=== PATIENT | male | born 1940 | race Caucasian/White ===

== ENCOUNTER → 2017-07-20 09:50 | Outpatient (CLI) | payer MEDICARE, SELFPAY ==
--- NOTE | 2017-07-20 09:50 | DT_ITS ---
This patient was seen during an EMR downtime July 20, 2017 - July 27, 2017. This patient may have a combination of paper and electronic documentation or all paper documentation. All documentation is viewable within the e-chart portion of [facility] for each patient visit.
[2017-07-26 02:58] LABS: Hemoglobin A1c 6.5 % (4.2-6.3)
[2017-07-26 02:59] LABS: BUN 17 mg/dL (7-18); BUN/Creat Ratio 14.7 RATIO (10-20); Creatinine, Serum 1.16 mg/dL (0.70-1.30); EST Glomerular Filtration Rate 65 mL/min (>60); Est Glom Filt Rate - Afr Amer 79 mL/min (>60); Glucose 125 mg/dL (74-106); Microalbumin,Random Urine 5.7 mg/L (NO RANGE EST.); Protein, Total 7.2 g/dL (6.4-8.2)
[2017-07-26 03:00] LABS: ALB/GLOB Ratio 1.2 RATIO (0.9-2.4); AST(SGOT) 19 U/L (15-37); Alanine Aminotransfer ALT/SGPT 25 U/L (16-61); Albumin, Serum 3.9 g/dL (3.2-5.0); Alkaline Phosphatase 43 U/L (45-117); Anion Gap 8 (5-15); Calcium,Total 8.9 mg/dL (8.5-10.1); Chloride 105 mmol/L (98-107); Cholesterol 221 mg/dL (200); Globulin 3.3 g/dL (2.2-4.2); High Density Lipoprotein 42 mg/dL; Potassium 4.1 mmol/L (3.5-5.1); Sodium Level 142 mmol/L (136-145); Triglycerides 138 mg/dL; Very Low Density Lipoprotein 28 mg/dL (5-40)
[2017-07-26 03:01] LABS: PSA,Total - Annual Screen 0.63 ng/mL (0.00-4.00)
[2017-07-26 04:11] LABS: Hematocrit 47.3 % (40-54); Hemoglobin 15.8 g/dl (13.0-16.5); Mean Corp Hgb Conc 33.4 g/gl (32-36); Mean Corpuscular Hgb 28.8 pg (27.0-32.0); Mean Corpuscular Volume 86.3 fL (80-94); Red Blood Count 5.48 M/mm3 (4.6-6.2); White Blood Count 6.3 K/mm3 (4.4-11.0)
[2017-07-26 04:12] LABS: Absolute Neutrophil Count 4.1 X10^3/uL (2.0-7.7); Basophil# 0.04 X10^3/uL; Basophil% 0.6 % (0-1); Eosinophil# 0.11 X10^3/uL; Eosinophils% 1.8 % (0-5); Lymphocyte % 22.3 % (19-41); Mean Platelet Vol. 10.6 fl (6.2-12.0); Monocyte% 9.6 % (0-10); Neutrophil # 4.12 X10^3/uL (2.7-7.7); Neutrophil % 65.5 % (47-70); POSITIVE COUNT NO; POSITIVE DIFFERENTIAL NO; POSITIVE MORPHOLOGY NO; Platelet Count 207 K/mm3 (150-450); RBC Distribution Width CV 13.8 % (11.6-14.6); RBC Distribution Width SD 43.8 fl (35.1-43.9)
== END ==
PROVIDERS: Family Provider Family Medicine; PCP Family Medicine; Visit Provider Family Medicine
DX: E11.9 Type 2 diabetes mellitus without complications (principal); E78.5 Hyperlipidemia, unspecified; Z12.5 Encounter for screening for malignant neoplasm of prostate; Z51.81 Encounter for therapeutic drug level monitoring
CPT/HCPCS: 36415; 80053; 80061; 82043; 82570; 83036; 84153; 85025; G0103

== ENCOUNTER → 2018-02-22 10:11 | Outpatient (CLI) | payer MEDICARE, SELFPAY ==
[2018-02-22 12:18] LABS: Hemoglobin A1c 6.6 % (4.2-6.3)
[2018-02-22 12:29] LABS: Cholesterol 230 mg/dL (200); High Density Lipoprotein 49 mg/dL; Triglycerides 103 mg/dL; Very Low Density Lipoprotein 21 mg/dL (5-40)
== END ==
PROVIDERS: Family Provider Family Medicine; PCP Family Medicine; Visit Provider Family Medicine
DX: E11.9 Type 2 diabetes mellitus without complications (principal)
CPT/HCPCS: 36415; 80061; 83036

== ENCOUNTER → 2018-08-31 | Outpatient (CLI) | payer MEDICARE, SELFPAY ==
[2018-08-31 12:26] LABS: Absolute Lymphocyte Count 1.45 X10^3/uL (0.83-4.51); Absolute Neutrophil Count 3.1 X10^3/uL (2.0-7.7); Basophil# 0.05 X10^3/uL; Basophil% 0.9 % (0-1); Eosinophil# 0.18 X10^3/uL; Eosinophils% 3.4 % (0-5); Hematocrit 44.2 % (40-54); Hemoglobin 14.6 g/dL (13.0-16.5); Lymphocyte # 1.45 X10^3/ul (4.0); Lymphocyte % 27.3 % (19-41); Mean Corpuscular Hgb 28.6 pg (27.0-32.0); Mean Corpuscular Volume 86.5 fL (80-94); Monocyte# 0.51 X10^3/uL; Monocyte% 9.6 % (0-10); NRBC Flagged by Analyzer 0 % (0-5); Neutrophil # 3.11 X10^3/uL (2.7-7.7); Neutrophil % 58.6 % (47-70); Platelet Count 196 K/mm3 (150-450); RBC Distribution Width CV 13.1 % (11.6-14.6); RBC Distribution Width SD 41.2 fl (35.1-43.9); Red Blood Count 5.11 M/mm3 (4.6-6.2); White Blood Count 5.3 K/mm3 (4.4-11.0)
[2018-08-31 12:42] LABS: Hemoglobin A1c 6.7 % (4.2-6.3)
[2018-08-31 13:05] LABS: ALB/GLOB Ratio 1.1 RATIO (0.9-2.4); AST(SGOT) 18 U/L (15-37); Alanine Aminotransfer ALT/SGPT 21 U/L (16-61); Albumin, Serum 3.4 g/dL (3.2-5.0); Alkaline Phosphatase 43 U/L (45-117); Anion Gap 5 (5-15); BUN 21 mg/dL (7-18); BUN/Creat Ratio 19.4 RATIO (10-20); Calcium,Total 8.5 mg/dL (8.5-10.1); Chloride 107 mmol/L (98-107); Cholesterol 203 mg/dL (200); Creatinine, Serum 1.08 mg/dL (0.70-1.30); EST Glomerular Filtration Rate 70 mL/min (>60); Est Glom Filt Rate - Afr Amer 85 mL/min (>60); Globulin 3.1 g/dL (2.2-4.2); Glucose 115 mg/dL (74-106); High Density Lipoprotein 40 mg/dL; PSA,Total - Annual Screen 0.82 ng/mL (0.00-4.00); Protein, Total 6.5 g/dL (6.4-8.2); Sodium Level 139 mmol/L (136-145); Triglycerides 128 mg/dL; Very Low Density Lipoprotein 26 mg/dL (5-40)
== END | disposition home or self-care (01) ==
LOC: LAB.FUTURE 09:56
PROVIDERS: Family Provider Family Medicine; PCP Family Medicine; Visit Provider Family Medicine
DX: E11.9 Type 2 diabetes mellitus without complications (principal); E78.5 Hyperlipidemia, unspecified; Z12.5 Encounter for screening for malignant neoplasm of prostate; Z51.81 Encounter for therapeutic drug level monitoring
CPT/HCPCS: 36415; 80053; 80061; 83036; 84153; 85025; G0103

== ENCOUNTER → 2018-10-28 12:25 | Outpatient (CLI) | payer MEDICARE, SELFPAY ==
--- NOTE | 2018-10-28 12:30 | RAD_ITS ---
STUDY: X-RAY CHEST REASON FOR EXAM: Male, 78 years old. Persistent cough. TECHNIQUE: PA and lateral views of the chest. COMPARISON: September 10, 2014. FINDINGS: There is improved inspiratory effort when compared to prior study. There is mild chronic interstitial coarsening without acute infiltrate or mass. There is no demonstrated pleural abnormality. Normal size heart. Normal mediastinum and az. Normal visualized pulmonary arteries. Normal visualized aortic arch and descending thoracic aorta. There are diffuse degenerative changes of the visualized thoracic spine. There is degenerative osteoarthritis of the bilateral shoulders. There is no demonstrated abnormality of the visualized soft tissue structures of the upper abdomen. RAD/Chest PA and Lateral IMPRESSION: No acute cardiopulmonary disease. Electronically Signed: Jj Kelly DO at 23:13 EDT Tel [phone], Service support ,
== END ==
PROVIDERS: Family Provider Family Medicine; PCP Family Medicine; Referring Provider Family Medicine; Visit Provider Family Medicine
DX: R05 Cough (principal)
CPT/HCPCS: 71046

== ENCOUNTER → 2018-11-01 17:11 | Outpatient (CLI) | payer MEDICARE, SELFPAY ==
[2018-11-01 17:25] LABS: Absolute Lymphocyte Count 1.31 X10^3/uL (0.83-4.51); Absolute Neutrophil Count 5.5 X10^3/uL (2.0-7.7); Basophil# 0.06 X10^3/uL; Basophil% 0.7 % (0-1); Eosinophil# 0.16 X10^3/uL; Hematocrit 46.6 % (40-54); Hemoglobin 15.4 g/dL (13.0-16.5); Lymphocyte # 1.31 X10^3/ul (4.0); Lymphocyte % 16.3 % (19-41); Mean Corpuscular Hgb 29.1 pg (27.0-32.0); Mean Corpuscular Volume 87.9 fL (80-94); Mean Platelet Vol. 10.3 fl (6.2-12.0); Monocyte% 12.4 % (0-10); NRBC Flagged by Analyzer 0 % (0-5); Neutrophil % 68.2 % (47-70); Platelet Count 215 K/mm3 (150-450); RBC Distribution Width CV 13.4 % (11.6-14.6); RBC Distribution Width SD 43.3 fl (35.1-43.9); White Blood Count 8.1 K/mm3 (4.4-11.0)
[2018-11-01 17:50] LABS: ALB/GLOB Ratio 1.1 RATIO (0.9-2.4); AST(SGOT) 16 U/L (15-37); Alanine Aminotransfer ALT/SGPT 22 U/L (16-61); Albumin, Serum 3.7 g/dL (3.2-5.0); Alkaline Phosphatase 49 U/L (45-117); Anion Gap 6 (5-15); BUN 29 mg/dL (7-18); BUN/Creat Ratio 25.7 RATIO (10-20); CRP < 2.90 mg/L (0.0-3.0); Calcium,Total 9.2 mg/dL (8.5-10.1); Chloride 106 mmol/L (98-107); Creatinine, Serum 1.13 mg/dL (0.70-1.30); EST Glomerular Filtration Rate 67 mL/min (>60); Est Glom Filt Rate - Afr Amer 81 mL/min (>60); Globulin 3.5 g/dL (2.2-4.2); Glucose 119 mg/dL (74-106); Potassium 4.3 mmol/L (3.5-5.1); Protein, Total 7.2 g/dL (6.4-8.2); Sodium Level 141 mmol/L (136-145); Thyroid Stim Hormone (TSH) 1.64 uIU/mL (0.358-3.74)
== END ==
PROVIDERS: Family Provider Family Medicine; PCP Family Medicine; Referring Provider Family Medicine; Visit Provider Family Medicine
DX: R53.83 Other fatigue (principal); R05 Cough; R06.00 Dyspnea, unspecified
CPT/HCPCS: 36415; 80053; 84443; 85025; 86140

== ENCOUNTER → 2019-02-28 10:08 | Outpatient (CLI) | payer MEDICARE, SELFPAY ==
[2019-02-28 13:34] LABS: Cholesterol 210 mg/dL (200); High Density Lipoprotein 42 mg/dL; Triglycerides 107 mg/dL; Very Low Density Lipoprotein 21 mg/dL (5-40)
[2019-02-28 14:30] LABS: Hemoglobin A1c 6.5 % (4.2-6.3)
== END ==
LOC: LAB.FUTURE 10:08 → BFHLAB 03-01 15:42
PROVIDERS: Family Provider Family Medicine; PCP Family Medicine; Visit Provider Family Medicine
DX: E11.9 Type 2 diabetes mellitus without complications (principal); E78.5 Hyperlipidemia, unspecified
CPT/HCPCS: 36415; 80061; 83036

== ENCOUNTER → 2019-08-01 | Outpatient (CLI) | payer MEDICARE, SELFPAY | END | disposition home or self-care (01) | LOC: LABSPEC 13:59 | PROVIDERS: PCP Family Medicine; Referring Provider Family Medicine; Visit Provider Family Medicine | DX: Z03.818 Encounter for observation for suspected exposure to other biological agents ruled out (principal) | CPT/HCPCS: 87635; G2023; U0003 ==

== ENCOUNTER → 2019-08-26 10:58 | Outpatient (CLI) | payer MEDICARE, SELFPAY ==
[2019-08-26 13:01] LABS: Absolute Lymphocyte Count 1.54 X10^3/uL (0.83-4.51); Absolute Neutrophil Count 3.2 X10^3/uL (2.0-7.7); Basophil# 0.06 X10^3/uL; Basophil% 1.1 % (0-1); Eosinophil# 0.23 X10^3/uL; Hematocrit 46.4 % (40-54); Hemoglobin 15.4 g/dL (13.0-16.5); Lymphocyte # 1.54 X10^3/ul (4.0); Lymphocyte % 27.1 % (19-41); Mean Corp Hgb Conc 33.2 g/dL (32-36); Mean Corpuscular Hgb 29.4 pg (27.0-32.0); Mean Corpuscular Volume 88.7 fL (80-94); Mean Platelet Vol. 10.4 fl (6.2-12.0); Monocyte# 0.62 X10^3/uL; Monocyte% 10.9 % (0-10); NRBC Flagged by Analyzer 0 % (0-5); Neutrophil # 3.22 X10^3/uL (2.7-7.7); Neutrophil % 56.5 % (47-70); Platelet Count 193 K/mm3 (150-450); RBC Distribution Width CV 13.7 % (11.6-14.6); RBC Distribution Width SD 43.8 fl (35.1-43.9); Red Blood Count 5.23 M/mm3 (4.6-6.2); White Blood Count 5.7 K/mm3 (4.4-11.0)
[2019-08-26 13:07] LABS: ALB/GLOB Ratio 1.1 RATIO (0.9-2.4); AST(SGOT) 19 U/L (15-37); Alanine Aminotransfer ALT/SGPT 22 U/L (16-61); Albumin, Serum 3.5 g/dL (3.2-5.0); Alkaline Phosphatase 45 U/L (45-117); Anion Gap 6 (5-15); BUN 30 mg/dL (7-18); Calcium,Total 8.5 mg/dL (8.5-10.1); Chloride 108 mmol/L (98-107); Cholesterol 223 mg/dL (200); Creatinine, Serum 1.07 mg/dL (0.70-1.30); EST Glomerular Filtration Rate 71 mL/min (>60); Est Glom Filt Rate - Afr Amer 86 mL/min (>60); Globulin 3.3 g/dL (2.2-4.2); Glucose 129 mg/dL (74-106); High Density Lipoprotein 43 mg/dL; Potassium 3.6 mmol/L (3.5-5.1); Protein, Total 6.8 g/dL (6.4-8.2); Sodium Level 142 mmol/L (136-145); Triglycerides 96 mg/dL; Very Low Density Lipoprotein 19 mg/dL (5-40)
[2019-08-26 13:08] LABS: Hemoglobin A1c 6.1 % (3.8-5.6)
== END ==
PROVIDERS: Family Provider Family Medicine; PCP Family Medicine; Visit Provider Family Medicine
DX: E11.9 Type 2 diabetes mellitus without complications (principal); E78.5 Hyperlipidemia, unspecified; I10 Essential (primary) hypertension; Z51.81 Encounter for therapeutic drug level monitoring; Z12.5 Encounter for screening for malignant neoplasm of prostate
CPT/HCPCS: 36415; 80053; 80061; 83036; 85025

== ENCOUNTER → 2020-01-23 09:49 | Outpatient (CLI) | payer MEDICARE, SELFPAY | PROVIDERS: PCP Family Medicine; Referring Provider Family Medicine; Visit Provider Family Medicine | DX: U07.1 COVID-19 (principal) | CPT/HCPCS: 87635; C9803; U0003 ==

== ENCOUNTER → 2020-03-02 14:28 | Outpatient (CLI) | payer OTHER, SELFPAY ==
[2020-03-02 17:40] LABS: Absolute Lymphocyte Count 1.48 X10^3/uL (0.83-4.51); Absolute Neutrophil Count 4.2 X10^3/uL (2.0-7.7); Basophil# 0.05 X10^3/uL; Basophil% 0.8 % (0-1); Eosinophil# 0.04 X10^3/uL; Eosinophils% 0.6 % (0-5); Hematocrit 47.4 % (40-54); Hemoglobin 15.6 g/dL (13.0-16.5); Lymphocyte # 1.48 X10^3/ul (4.0); Lymphocyte % 23.5 % (19-41); Mean Corp Hgb Conc 32.9 g/dL (32-36); Mean Corpuscular Hgb 28.5 pg (27.0-32.0); Mean Corpuscular Volume 86.7 fL (80-94); Monocyte# 0.53 X10^3/uL; Monocyte% 8.4 % (0-10); NRBC Flagged by Analyzer 0 % (0-5); Neutrophil # 4.18 X10^3/uL (2.7-7.7); Neutrophil % 66.5 % (47-70); Platelet Count 226 K/mm3 (150-450); RBC Distribution Width CV 13.6 % (11.6-14.6); RBC Distribution Width SD 42.8 fl (35.1-43.9); Red Blood Count 5.47 M/mm3 (4.6-6.2); White Blood Count 6.3 K/mm3 (4.4-11.0)
[2020-03-02 17:55] LABS: ALB/GLOB Ratio 1.1 RATIO (0.9-2.4); AST(SGOT) 22 U/L (15-37); Alanine Aminotransfer ALT/SGPT 29 U/L (16-61); Albumin, Serum 3.7 g/dL (3.2-5.0); Alkaline Phosphatase 52 U/L (45-117); Anion Gap 6 (5-15); BUN 20 mg/dL (7-18); BUN/Creat Ratio 18.7 RATIO (10-20); Calcium,Total 8.5 mg/dL (8.5-10.1); Chloride 105 mmol/L (98-107); Cholesterol 230 mg/dL (200); Creatinine, Serum 1.07 mg/dL (0.70-1.30); EST Glomerular Filtration Rate 71 mL/min (>60); Est Glom Filt Rate - Afr Amer 86 mL/min (>60); Globulin 3.4 g/dL (2.2-4.2); Glucose 120 mg/dL (74-106); High Density Lipoprotein 47 mg/dL; PSA,Total - Annual Screen 1.18 ng/mL (0.00-4.00); Potassium 3.9 mmol/L (3.5-5.1); Protein, Total 7.1 g/dL (6.4-8.2); Sodium Level 139 mmol/L (136-145); Triglycerides 82 mg/dL; Very Low Density Lipoprotein 16 mg/dL (5-40)
[2020-03-02 18:04] LABS: Hemoglobin A1c 6.4 % (3.8-5.6)
[2020-03-02 18:11] LABS: Microalbumin,Random Urine 14.1 mg/L (NO RANGE EST.); Microalbumin:Creatinine Ratio 17.2 mg/g CRE (<30 mg/g CRE)
== END ==
PROVIDERS: PCP Family Medicine; Visit Provider Family Medicine
DX: E11.9 Type 2 diabetes mellitus without complications (principal); E78.5 Hyperlipidemia, unspecified; I10 Essential (primary) hypertension; Z51.81 Encounter for therapeutic drug level monitoring; Z12.5 Encounter for screening for malignant neoplasm of prostate
CPT/HCPCS: 36415; 80053; 80061; 82043; 82570; 83036; 84153; 85025; G0103

== ENCOUNTER → 2020-11-08 09:08 | Outpatient (CLI) | payer OTHER, SELFPAY | PROVIDERS: PCP Family Medicine; Visit Provider Family Medicine | DX: Z20.828 Contact with and (suspected) exposure to other viral communicable diseases (principal) | CPT/HCPCS: 87635; U0005; U0003 ==

== ENCOUNTER 2021-03-06 13:42 | Outpatient (CLI) | payer OTHER, SELFPAY | END 2021-03-06 23:59 | disposition short-term general hospital (02) | LOC: LABSPEC 03-07 07:57 | PROVIDERS: PCP Family Medicine; Visit Provider Family Medicine | DX: R05.9 Cough, unspecified (principal); R09.89 Other specified symptoms and signs involving the circulatory and respiratory systems | CPT/HCPCS: 87635; U0003; U0005 ==

== ENCOUNTER → 2021-08-02 | Outpatient (CLI) | payer OTHER, SELFPAY ==
[2021-08-02 17:39] LABS: Absolute Lymphocyte Count 1.44 X10^3/uL (0.83-4.51); Absolute Neutrophil Count 4.3 X10^3/uL (2.0-7.7); Basophil# 0.06 X10^3/uL; Basophil% 0.9 % (0-1); Eosinophil# 0.05 X10^3/uL; Eosinophils% 0.8 % (0-5); Hematocrit 47.2 % (40-54); Hemoglobin 15.6 g/dL (13.0-16.5); Lymphocyte # 1.44 X10^3/ul (0.83-4.51); Lymphocyte % 22.2 % (19-41); Mean Corp Hgb Conc 33.1 g/dL (32-36); Mean Corpuscular Hgb 28.6 pg (27.0-32.0); Mean Corpuscular Volume 86.4 fL (80-94); Monocyte# 0.61 X10^3/uL; Monocyte% 9.4 % (0-10); NRBC Flagged by Analyzer 0 % (0-5); Neutrophil % 66.4 % (47-70); Platelet Count 233 K/mm3 (150-450); RBC Distribution Width CV 13.2 % (11.6-14.6); RBC Distribution Width SD 40.9 fl (35.1-43.9); Red Blood Count 5.46 M/mm3 (4.6-6.2); White Blood Count 6.5 K/mm3 (4.4-11.0)
[2021-08-02 18:08] LABS: ALB/GLOB Ratio 1.1 RATIO (0.9-2.4); AST(SGOT) 19 U/L (15-37); Alanine Aminotransfer ALT/SGPT 24 U/L (16-61); Albumin, Serum 3.7 g/dL (3.2-5.0); Alkaline Phosphatase 49 U/L (45-117); Anion Gap 7 (5-15); BUN 22 mg/dL (7-18); BUN/Creat Ratio 21.6 RATIO (10-20); Calcium,Total 8.9 mg/dL (8.5-10.1); Chloride 106 mmol/L (98-107); Cholesterol 214 mg/dL (200); Creatinine, Serum 1.02 mg/dL (0.70-1.30); EST Glomerular Filtration Rate 75 mL/min (>60); Est Glom Filt Rate - Afr Amer 90 mL/min (>60); Globulin 3.3 g/dL (2.2-4.2); Glucose 126 mg/dL (74-106); High Density Lipoprotein 40 mg/dL; Potassium 3.8 mmol/L (3.5-5.1); Sodium Level 139 mmol/L (136-145); Triglycerides 86 mg/dL; Very Low Density Lipoprotein 17 mg/dL (5-40)
[2021-08-02 19:58] LABS: Microalbumin:Creatinine Ratio 18.6 mg/g CRE (<30 mg/g CRE)
== END | disposition home or self-care (01) ==
LOC: MTLAB 14:40
PROVIDERS: PCP Family Medicine; Referring Provider Family Medicine; Visit Provider Family Medicine
DX: E11.9 Type 2 diabetes mellitus without complications (principal); E78.5 Hyperlipidemia, unspecified; I10 Essential (primary) hypertension; Z51.81 Encounter for therapeutic drug level monitoring
CPT/HCPCS: 36415; 80053; 80061; 82043; 82570; 83036; 85025

== ENCOUNTER → 2022-04-03 | Outpatient (CLI) | payer OTHER, SELFPAY ==
[2022-04-03 12:14] LABS: Absolute Lymphocyte Count 1.79 X10^3/uL (0.83-4.51); Absolute Neutrophil Count 4.3 X10^3/uL (2.0-7.7); Basophil# 0.05 X10^3/uL; Basophil% 0.7 % (0-1); Eosinophil# 0.09 X10^3/uL; Eosinophils% 1.3 % (0-5); Hematocrit 47.3 % (40-54); Hemoglobin 15.6 g/dL (13.0-16.5); Lymphocyte # 1.79 X10^3/ul (0.83-4.51); Lymphocyte % 26.3 % (19-41); Mean Corpuscular Hgb 28.4 pg (27.0-32.0); Mean Corpuscular Volume 86.2 fL (80-94); Monocyte# 0.53 X10^3/uL; Monocyte% 7.8 % (0-10); NRBC Flagged by Analyzer 0 % (0-5); Neutrophil # 4.33 X10^3/uL (2.7-7.7); Neutrophil % 63.8 % (47-70); Platelet Count 226 K/mm3 (150-450); RBC Distribution Width CV 13.6 % (11.6-14.6); RBC Distribution Width SD 42.7 fl (35.1-43.9); Red Blood Count 5.49 M/mm3 (4.6-6.2); White Blood Count 6.8 K/mm3 (4.4-11.0)
[2022-04-03 12:44] LABS: Hemoglobin A1c 7.3 % (3.8-5.6)
[2022-04-03 12:48] LABS: ALB/GLOB Ratio 1.1 RATIO (0.9-2.4); AST(SGOT) 30 U/L (15-37); Alanine Aminotransfer ALT/SGPT 42 U/L (16-61); Albumin, Serum 3.6 g/dL (3.2-5.0); Alkaline Phosphatase 58 U/L (45-117); Anion Gap 8 (5-15); BUN 23 mg/dL (7-18); BUN/Creat Ratio 21.5 RATIO (10-20); Chloride 104 mmol/L (98-107); Cholesterol 204 mg/dL (200); Creatinine, Serum 1.07 mg/dL (0.70-1.30); EST Glomerular Filtration Rate 71 mL/min (>60); Est Glom Filt Rate - Afr Amer 85 mL/min (>60); Globulin 3.3 g/dL (2.2-4.2); Glucose 144 mg/dL (74-106); High Density Lipoprotein 41 mg/dL; PSA,Total - Annual Screen 2.31 ng/mL (0.00-4.00); Potassium 4.1 mmol/L (3.5-5.1); Protein, Total 6.9 g/dL (6.4-8.2); Sodium Level 139 mmol/L (136-145); Triglycerides 119 mg/dL; Very Low Density Lipoprotein 24 mg/dL (5-40)
[2022-04-03 18:23] LABS: Microalbumin,Random Urine 67.4 mg/L (NO RANGE EST.); Microalbumin:Creatinine Ratio 37.9 mg/g CRE (<30 mg/g CRE)
== END | disposition home or self-care (01) ==
LOC: BFHLAB 10:44
PROVIDERS: PCP Family Medicine; Visit Provider Family Medicine
DX: E11.9 Type 2 diabetes mellitus without complications (principal); E78.5 Hyperlipidemia, unspecified; I10 Essential (primary) hypertension; Z12.5 Encounter for screening for malignant neoplasm of prostate
CPT/HCPCS: 36415; 80053; 80061; 82043; 82570; 83036; 84153; 85025; G0103

== ENCOUNTER → 2022-07-22 | Outpatient (CLI) | payer OTHER, SELFPAY ==
[2022-07-22 18:50] LABS: Thyroid Stim Hormone (TSH) 1.35 uIU/mL (0.358-3.74)
[2022-07-22 19:12] LABS: Vitamin B12 614 pg/mL (211-911)
== END | disposition home or self-care (01) ==
LOC: BFHLAB 15:16
PROVIDERS: PCP Family Medicine; Referring Provider Family Medicine; Visit Provider Family Medicine
DX: G31.84 Mild cognitive impairment of uncertain or unknown etiology (principal)
CPT/HCPCS: 36415; 82607; 84443

== ENCOUNTER → 2022-10-14 | Outpatient (CLI) | payer OTHER, SELFPAY ==
[2022-10-14 12:20] LABS: Cholesterol 208 mg/dL (200); High Density Lipoprotein 46 mg/dL; Triglycerides 82 mg/dL; Very Low Density Lipoprotein 16 mg/dL (5-40)
[2022-10-14 12:40] LABS: Hemoglobin A1c 6.9 % (3.8-5.6)
== END | disposition home or self-care (01) ==
LOC: BFHLAB 09:48
PROVIDERS: PCP Family Medicine; Referring Provider Family Medicine; Visit Provider Family Medicine
DX: E11.9 Type 2 diabetes mellitus without complications (principal); E78.5 Hyperlipidemia, unspecified
CPT/HCPCS: 36415; 80061; 83036

== ENCOUNTER → 2023-03-17 | Outpatient (CLI) | payer OTHER, SELFPAY ==
--- NOTE | 2023-03-17 14:59 | RAD_ITS ---
STUDY: X-RAY - RIGHT TIBIA AND FIBULA REASON FOR EXAM: Male, 82 years old. Bilateral leg pain TECHNIQUE: 4 view(s) of the tibia and fibula were obtained. COMPARISON: None. FINDINGS: Normal visualized tibia. Normal visualized fibula. Atherosclerotic calcification. RAD/Tibia & Fibula 2 Views IMPRESSION: No acute abnormality is seen. Electronically Signed: Calvin Frey MD at 15:05 EST ,
--- NOTE | 2023-03-17 15:00 | RAD_ITS ---
STUDY: X-RAY - LEFT TIBIA AND FIBULA REASON FOR EXAM: Male, 82 years old. Bilateral leg pain TECHNIQUE: 4 view(s) of the tibia and fibula were obtained. COMPARISON: None. FINDINGS: There is demineralization of the tibia. There is demineralization of the fibula. There is visualized calcification of the calf vessels. RAD/Tibia & Fibula 2 Views IMPRESSION: Atherosclerotic disease of the calf vessels. No visualized acute fracture. Electronically Signed: Mallory Wilkinson MD at 18:04 EST Reading Location ID and State: [facility] / [place] Tel , Service support ,
== END | disposition home or self-care (01) ==
LOC: MTRAD 14:56
PROVIDERS: PCP Family Medicine; Referring Provider Family Medicine; Visit Provider Family Medicine
DX: M79.604 Pain in right leg (principal); M79.605 Pain in left leg
CPT/HCPCS: 73590

== ENCOUNTER → 2023-04-21 | Outpatient (CLI) | payer OTHER, SELFPAY ==
[2023-04-21 12:40] LABS: Absolute Lymphocyte Count 1.74 X10^3/uL (0.83-4.51); Absolute Neutrophil Count 4.1 X10^3/uL (2.0-7.7); Basophil# 0.06 X10^3/uL; Basophil% 0.9 % (0-1); Hematocrit 45.3 % (40-54); Hemoglobin 14.5 g/dL (13.0-16.5); Lymphocyte # 1.74 X10^3/ul (0.83-4.51); Lymphocyte % 25.9 % (19-41); Mean Corpuscular Hgb 27.9 pg (27.0-32.0); Mean Corpuscular Volume 87.1 fL (80-94); Mean Platelet Vol. 9.8 fl (6.2-12.0); Monocyte% 8.9 % (0-10); NRBC Flagged by Analyzer 0 % (0-5); Neutrophil # 4.08 X10^3/uL (2.7-7.7); Neutrophil % 60.9 % (47-70); Platelet Count 233 K/mm3 (150-450); RBC Distribution Width CV 13.8 % (11.6-14.6); RBC Distribution Width SD 44.2 fl (35.1-43.9); White Blood Count 6.7 K/mm3 (4.4-11.0)
[2023-04-21 13:10] LABS: ALB/GLOB Ratio 1.1 RATIO (0.9-2.4); AST(SGOT) 22 U/L (15-37); Alanine Aminotransfer ALT/SGPT 28 U/L (16-61); Albumin, Serum 3.3 g/dL (3.2-5.0); Alkaline Phosphatase 59 U/L (45-117); Anion Gap 6 (5-15); BUN 26 mg/dL (7-18); BUN/Creat Ratio 25.2 RATIO (10-20); Calcium,Total 8.7 mg/dL (8.5-10.1); Chloride 106 mmol/L (98-107); Cholesterol 195 mg/dL (200); Creatinine, Serum 1.03 mg/dL (0.70-1.30); EST Glomerular Filtration Rate 74 mL/min (>60); Est Glom Filt Rate - Afr Amer 89 mL/min (>60); Glucose 156 mg/dL (74-106); High Density Lipoprotein 42 mg/dL; Potassium 3.9 mmol/L (3.5-5.1); Protein, Total 6.3 g/dL (6.4-8.2); Sodium Level 141 mmol/L (136-145); Triglycerides 112 mg/dL; Very Low Density Lipoprotein 22 mg/dL (5-40)
[2023-04-21 14:35] LABS: Hemoglobin A1c 6.9 % (3.8-5.6)
== END | disposition home or self-care (01) ==
LOC: BFHLAB 09:25
PROVIDERS: PCP Family Medicine; Referring Provider Family Medicine; Visit Provider Family Medicine
DX: R53.83 Other fatigue (principal); E11.9 Type 2 diabetes mellitus without complications; E78.5 Hyperlipidemia, unspecified
CPT/HCPCS: 36415; 80053; 80061; 83036; 85025

== ENCOUNTER → 2023-05-19 | Outpatient (CLI) | payer MEDICARE, SELFPAY ==
--- NOTE | 2023-05-19 13:53 | CT_ITS ---
INDICATION: DELUSIONS/MEMORY IMPAIRMENT EXAMINATION: CT BRAIN - CT Head or Brain W/O Contrast Injection TECHNIQUE: Multiple axial images were obtained of the head without intravenous contrast. A radiation dose optimization technique was used for this scan. IV Contrast dosage and agent: None. RADIATION DOSAGE (If Supplied By Facility): CTDIvol = ( 44.99 ) mGy, DLP = ( 779.24 ) mGycm COMPARISON: No relevant prior comparison study available FINDINGS: BRAIN PARENCHYMA: No intra- or extra-axial hemorrhage. No evidence of acute infarct. No intracranial mass or mass effect. There is preservation of the uribe/white matter interface. Posterior fossa structures are unremarkable. Atherosclerotic calcifications of the cavernous internal carotid arteries. Mild chronic periventricular deep white matter changes likely due to microvascular disease. CSF SPACES: Mild diffuse atrophy appropriate for patient''s age. No hydrocephalus. Basal cisterns are patent. CALVARIUM, SKULL BASE, PARANASAL SINUSES AND MASTOID AIR CELLS: Mucosal thickening of the right maxillary and ethmoid sinuses. No discrete lytic or blastic abnormalities. ORBITS: Both globes, extraocular muscles, optic nerves and retrobulbar fat appear unremarkable. CT/Brain/Head without Contrast IMPRESSION: 1. No acute intracranial process. 2. Mild chronic involutional changes of the brain. Electronically Signed: Noel Bhat MD at 16:00 EDT ,
== END | disposition home or self-care (01) ==
LOC: CT 13:51
PROVIDERS: PCP Family Medicine; Referring Provider Family Medicine; Visit Provider Family Medicine
DX: R41.3 Other amnesia (principal); F22 Delusional disorders; R26.9 Unspecified abnormalities of gait and mobility
CPT/HCPCS: 70450

== ENCOUNTER → 2023-07-16 | Outpatient (REF) | payer MEDICARE, SELFPAY ==
[2023-07-16 08:32] LABS: Absolute Lymphocyte Count 2.05 X10^3/uL (0.83-4.51); Absolute Neutrophil Count 3.5 X10^3/uL (2.0-7.7); Basophil# 0.06 X10^3/uL; Basophil% 0.9 % (0-1); Eosinophil# 0.28 X10^3/uL; Eosinophils% 4.2 % (0-5); Hemoglobin 13.2 g/dL (13.0-16.5); Lymphocyte # 2.05 X10^3/ul (0.83-4.51); Mean Corp Hgb Conc 32.2 g/dL (32-36); Mean Corpuscular Volume 86.9 fL (80-94); Mean Platelet Vol. 10.2 fl (6.2-12.0); Monocyte# 0.71 X10^3/uL; Monocyte% 10.7 % (0-10); NRBC Flagged by Analyzer 0 % (0-5); Neutrophil % 52.9 % (47-70); Platelet Count 197 K/mm3 (150-450); RBC Distribution Width CV 13.4 % (11.6-14.6); RBC Distribution Width SD 42.5 fl (35.1-43.9); Red Blood Count 4.72 M/mm3 (4.6-6.2); White Blood Count 6.6 K/mm3 (4.4-11.0)
[2023-07-16 09:00] LABS: AST(SGOT) 25 U/L (15-37); Alanine Aminotransfer ALT/SGPT 27 U/L (16-61); Albumin, Serum 2.9 g/dL (3.2-5.0); Alkaline Phosphatase 52 U/L (45-117); Anion Gap 5 (5-15); BUN 16 mg/dL (7-18); Calcium,Total 8.4 mg/dL (8.5-10.1); Chloride 106 mmol/L (98-107); Cholesterol 172 mg/dL (200); EST Glomerular Filtration Rate 76 mL/min (>60); Est Glom Filt Rate - Afr Amer 92 mL/min (>60); Globulin 2.8 g/dL (2.2-4.2); Glucose 143 mg/dL (74-106); High Density Lipoprotein 40 mg/dL; Potassium 4.2 mmol/L (3.5-5.1); Protein, Total 5.7 g/dL (6.4-8.2); Sodium Level 139 mmol/L (136-145); Thyroid Stim Hormone (TSH) 1.62 uIU/mL (0.358-3.74); Triglycerides 75 mg/dL; Very Low Density Lipoprotein 15 mg/dL (5-40)
[2023-07-16 10:47] LABS: Vitamin B12 307 pg/mL (211-911); Vitamin D,25 Hydroxy 45.1 ng/mL
== END ==
LOC: OLS.WHLTSB 05:00
PROVIDERS: PCP Family Medicine; Visit Provider Internal Medicine
DX: G30.9 Alzheimer's disease, unspecified (principal); E55.9 Vitamin D deficiency, unspecified; I10 Essential (primary) hypertension; K21.9 Gastro-esophageal reflux disease without esophagitis; Z79.899 Other long term (current) drug therapy
CPT/HCPCS: 36415; 80053; 80061; 82306; 82607; 83036; 84443; 85025

== ENCOUNTER → 2023-07-30 | Outpatient (REF) | payer MEDICARE, SELFPAY ==
[2023-07-30 08:22] LABS: Absolute Lymphocyte Count 2.06 X10^3/uL (0.83-4.51); Absolute Neutrophil Count 6.3 X10^3/uL (2.0-7.7); Basophil# 0.06 X10^3/uL; Basophil% 0.6 % (0-1); Eosinophil# 0.18 X10^3/uL; Eosinophils% 1.8 % (0-5); Hematocrit 44.8 % (40-54); Hemoglobin 14.4 g/dL (13.0-16.5); Lymphocyte # 2.06 X10^3/ul (0.83-4.51); Lymphocyte % 21.1 % (19-41); Mean Corp Hgb Conc 32.1 g/dL (32-36); Mean Corpuscular Hgb 27.9 pg (27.0-32.0); Mean Corpuscular Volume 86.7 fL (80-94); Mean Platelet Vol. 10.2 fl (6.2-12.0); Monocyte# 1.09 X10^3/uL; Monocyte% 11.2 % (0-10); NRBC Flagged by Analyzer 0 % (0-5); Neutrophil # 6.33 X10^3/uL (2.7-7.7); Neutrophil % 64.9 % (47-70); Platelet Count 214 K/mm3 (150-450); RBC Distribution Width CV 13.6 % (11.6-14.6); RBC Distribution Width SD 43.3 fl (35.1-43.9); Red Blood Count 5.17 M/mm3 (4.6-6.2); White Blood Count 9.8 K/mm3 (4.4-11.0)
[2023-07-30 10:23] LABS: Anion Gap 7 (5-15); BUN 19 mg/dL (7-18); BUN/Creat Ratio 19.2 RATIO (10-20); Calcium,Total 9.3 mg/dL (8.5-10.1); Chloride 102 mmol/L (98-107); Creatinine, Serum 0.99 mg/dL (0.70-1.30); EST Glomerular Filtration Rate 77 mL/min (>60); Est Glom Filt Rate - Afr Amer 93 mL/min (>60); Glucose 169 mg/dL (74-106); Potassium 4.4 mmol/L (3.5-5.1); Sodium Level 138 mmol/L (136-145)
== END ==
LOC: OLS.WHLTSB 04:35
PROVIDERS: PCP Family Medicine; Referring Provider Internal Medicine; Visit Provider Internal Medicine
DX: E11.9 Type 2 diabetes mellitus without complications (principal); I10 Essential (primary) hypertension
CPT/HCPCS: 36415; 80048; 85025

== ENCOUNTER → 2023-08-13 | Outpatient (REF) | payer MEDICARE, SELFPAY ==
[2023-08-13 07:35] LABS: Absolute Lymphocyte Count 2.62 X10^3/uL (0.83-4.51); Absolute Neutrophil Count 4.5 X10^3/uL (2.0-7.7); Basophil# 0.08 X10^3/uL; Eosinophil# 0.25 X10^3/uL; Hematocrit 46.3 % (40-54); Hemoglobin 14.9 g/dL (13.0-16.5); Lymphocyte # 2.62 X10^3/ul (0.83-4.51); Lymphocyte % 31.6 % (19-41); Mean Corp Hgb Conc 32.2 g/dL (32-36); Monocyte# 0.76 X10^3/uL; Monocyte% 9.2 % (0-10); NRBC Flagged by Analyzer 0 % (0-5); Neutrophil # 4.54 X10^3/uL (2.7-7.7); Neutrophil % 54.6 % (47-70); Platelet Count 264 K/mm3 (150-450); RBC Distribution Width CV 13.6 % (11.6-14.6); RBC Distribution Width SD 43.1 fl (35.1-43.9); Red Blood Count 5.32 M/mm3 (4.6-6.2); White Blood Count 8.3 K/mm3 (4.4-11.0)
[2023-08-13 07:38] LABS: Anion Gap 4 (5-15); BUN 23 mg/dL (7-18); Calcium,Total 9.1 mg/dL (8.5-10.1); Chloride 104 mmol/L (98-107); EST Glomerular Filtration Rate 76 mL/min (>60); Est Glom Filt Rate - Afr Amer 92 mL/min (>60); Glucose 159 mg/dL (74-106); Potassium 4.2 mmol/L (3.5-5.1); Sodium Level 138 mmol/L (136-145)
== END ==
LOC: OLS.WHLTSB 05:00
PROVIDERS: PCP Family Medicine; Visit Provider Internal Medicine
DX: E11.9 Type 2 diabetes mellitus without complications (principal)
CPT/HCPCS: 36415; 80048; 85025

== ENCOUNTER → 2023-09-10 | Outpatient (REF) | payer MEDICARE, SELFPAY ==
[2023-09-10 08:08] LABS: Absolute Lymphocyte Count 1.99 X10^3/uL (0.83-4.51); Absolute Neutrophil Count 4.2 X10^3/uL (2.0-7.7); Basophil# 0.08 X10^3/uL; Basophil% 1.1 % (0-1); Eosinophil# 0.31 X10^3/uL; Eosinophils% 4.2 % (0-5); Hematocrit 43.9 % (40-54); Hemoglobin 14.5 g/dL (13.0-16.5); Lymphocyte # 1.99 X10^3/ul (0.83-4.51); Lymphocyte % 27.1 % (19-41); Mean Corpuscular Hgb 28.7 pg (27.0-32.0); Mean Corpuscular Volume 86.9 fL (80-94); Mean Platelet Vol. 9.9 fl (6.2-12.0); Monocyte# 0.76 X10^3/uL; Monocyte% 10.3 % (0-10); NRBC Flagged by Analyzer 0 % (0-5); Neutrophil # 4.18 X10^3/uL (2.7-7.7); Neutrophil % 56.9 % (47-70); Platelet Count 223 K/mm3 (150-450); RBC Distribution Width CV 14.2 % (11.6-14.6); RBC Distribution Width SD 45.2 fl (35.1-43.9); Red Blood Count 5.05 M/mm3 (4.6-6.2); White Blood Count 7.4 K/mm3 (4.4-11.0)
[2023-09-10 08:21] LABS: Anion Gap 4 (5-15); BUN 21 mg/dL (7-18); BUN/Creat Ratio 20.2 RATIO (10-20); Chloride 105 mmol/L (98-107); Creatinine, Serum 1.04 mg/dL (0.70-1.30); EST Glomerular Filtration Rate 73 mL/min (>60); Est Glom Filt Rate - Afr Amer 88 mL/min (>60); Glucose 154 mg/dL (74-106); Potassium 4.2 mmol/L (3.5-5.1); Sodium Level 138 mmol/L (136-145)
== END ==
LOC: OLS.WHLTSB 05:00
PROVIDERS: PCP Family Medicine; Referring Provider Internal Medicine; Visit Provider Internal Medicine
DX: E11.9 Type 2 diabetes mellitus without complications (principal); I10 Essential (primary) hypertension
CPT/HCPCS: 36415; 80048; 85025

== ENCOUNTER → 2023-10-08 | Outpatient (REF) | payer MEDICARE, SELFPAY ==
[2023-10-08 08:08] LABS: Absolute Lymphocyte Count 2.07 X10^3/uL (0.83-4.51); Absolute Neutrophil Count 4.4 X10^3/uL (2.0-7.7); Basophil# 0.08 X10^3/uL; Eosinophil# 0.29 X10^3/uL; Eosinophils% 3.7 % (0-5); Hematocrit 42.8 % (40-54); Hemoglobin 14.2 g/dL (13.0-16.5); Lymphocyte # 2.07 X10^3/ul (0.83-4.51); Lymphocyte % 26.7 % (19-41); Mean Corp Hgb Conc 33.2 g/dL (32-36); Mean Corpuscular Hgb 28.9 pg (27.0-32.0); Mean Platelet Vol. 10.1 fl (6.2-12.0); Monocyte# 0.91 X10^3/uL; Monocyte% 11.7 % (0-10); NRBC Flagged by Analyzer 0 % (0-5); Neutrophil # 4.38 X10^3/uL (2.7-7.7); Neutrophil % 56.5 % (47-70); Platelet Count 203 K/mm3 (150-450); RBC Distribution Width CV 13.9 % (11.6-14.6); RBC Distribution Width SD 44.5 fl (35.1-43.9); Red Blood Count 4.92 M/mm3 (4.6-6.2); White Blood Count 7.8 K/mm3 (4.4-11.0)
[2023-10-08 08:23] LABS: AST(SGOT) 22 U/L (15-37); Alanine Aminotransfer ALT/SGPT 27 U/L (16-61); Albumin, Serum 3.2 g/dL (3.2-5.0); Alkaline Phosphatase 53 U/L (45-117); Anion Gap 4 (5-15); BUN 17 mg/dL (7-18); Bilirubin, Direct 0.17 mg/dL (0.00-0.30); Calcium,Total 8.4 mg/dL (8.5-10.1); Chloride 105 mmol/L (98-107); EST Glomerular Filtration Rate 76 mL/min (>60); Est Glom Filt Rate - Afr Amer 92 mL/min (>60); Globulin 3.2 g/dL (2.2-4.2); Glucose 149 mg/dL (74-106); Potassium 4.2 mmol/L (3.5-5.1); Protein, Total 6.4 g/dL (6.4-8.2); Sodium Level 137 mmol/L (136-145)
[2023-10-08 09:11] LABS: Hemoglobin A1c 7.8 % (3.8-5.6)
== END ==
LOC: OLS.WHLTSB 05:00
PROVIDERS: PCP Family Medicine; Visit Provider Internal Medicine
DX: E11.9 Type 2 diabetes mellitus without complications (principal); I10 Essential (primary) hypertension
CPT/HCPCS: 36415; 80048; 80076; 83036; 85025

== ENCOUNTER → 2023-11-16 05:00 | Outpatient (REF) | payer MEDICARE, SELFPAY ==
[2023-11-16 07:19] LABS: Absolute Lymphocyte Count 1.67 X10^3/uL (0.83-4.51); Absolute Neutrophil Count 3.3 X10^3/uL (2.0-7.7); Basophil# 0.05 X10^3/uL; Basophil% 0.9 % (0-1); Eosinophils% 3.4 % (0-5); Hematocrit 40.6 % (40-54); Hemoglobin 13.3 g/dL (13.0-16.5); Lymphocyte # 1.67 X10^3/ul (0.83-4.51); Lymphocyte % 28.4 % (19-41); Mean Corp Hgb Conc 32.8 g/dL (32-36); Mean Corpuscular Volume 88.6 fL (80-94); Monocyte# 0.63 X10^3/uL; Monocyte% 10.7 % (0-10); NRBC Flagged by Analyzer 0 % (0-5); Neutrophil # 3.29 X10^3/uL (2.7-7.7); Neutrophil % 56.1 % (47-70); Platelet Count 222 K/mm3 (150-450); RBC Distribution Width CV 14.3 % (11.6-14.6); RBC Distribution Width SD 45.7 fl (35.1-43.9); Red Blood Count 4.58 M/mm3 (4.6-6.2); White Blood Count 5.9 K/mm3 (4.4-11.0)
[2023-11-16 07:50] LABS: Anion Gap 6 (5-15); BUN 18 mg/dL (7-18); BUN/Creat Ratio 17.8 RATIO (10-20); Calcium,Total 8.5 mg/dL (8.5-10.1); Chloride 105 mmol/L (98-107); Creatinine, Serum 1.01 mg/dL (0.70-1.30); EST Glomerular Filtration Rate 75 mL/min (>60); Est Glom Filt Rate - Afr Amer 91 mL/min (>60); Glucose 138 mg/dL (74-106); Potassium 4.2 mmol/L (3.5-5.1); Sodium Level 139 mmol/L (136-145)
== END ==
LOC: OLS.WHLTSB 05:00
PROVIDERS: PCP Family Medicine; Visit Provider Internal Medicine
DX: E11.9 Type 2 diabetes mellitus without complications (principal); G30.9 Alzheimer's disease, unspecified; I10 Essential (primary) hypertension; K21.9 Gastro-esophageal reflux disease without esophagitis; N40.0 Benign prostatic hyperplasia without lower urinary tract symptoms
CPT/HCPCS: 36415; 80048; 85025

== ENCOUNTER → 2023-12-03 05:00 | Outpatient (REF) | payer MEDICARE, SELFPAY ==
[2023-12-03 08:20] LABS: Absolute Lymphocyte Count 1.69 X10^3/uL (0.83-4.51); Basophil# 0.05 X10^3/uL; Basophil% 0.9 % (0-1); Eosinophil# 0.27 X10^3/uL; Eosinophils% 4.8 % (0-5); Hematocrit 40.8 % (40-54); Hemoglobin 13.3 g/dL (13.0-16.5); Lymphocyte # 1.69 X10^3/ul (0.83-4.51); Mean Corp Hgb Conc 32.6 g/dL (32-36); Mean Corpuscular Hgb 29.3 pg (27.0-32.0); Mean Corpuscular Volume 89.9 fL (80-94); Monocyte# 0.59 X10^3/uL; Monocyte% 10.5 % (0-10); NRBC Flagged by Analyzer 0 % (0-5); Neutrophil % 53.3 % (47-70); Platelet Count 206 K/mm3 (150-450); RBC Distribution Width CV 14.1 % (11.6-14.6); RBC Distribution Width SD 46.6 fl (35.1-43.9); Red Blood Count 4.54 M/mm3 (4.6-6.2); White Blood Count 5.6 K/mm3 (4.4-11.0)
[2023-12-03 08:35] LABS: Hemoglobin A1c 6.8 % (3.8-5.6)
[2023-12-03 08:40] LABS: AST(SGOT) 14 U/L (15-37); Alanine Aminotransfer ALT/SGPT 15 U/L (16-61); Albumin, Serum 2.9 g/dL (3.2-5.0); Alkaline Phosphatase 42 U/L (45-117); Anion Gap 4 (5-15); BUN 18 mg/dL (7-18); BUN/Creat Ratio 19.3 RATIO (10-20); Bilirubin, Direct 0.16 mg/dL (0.00-0.30); Calcium,Total 8.4 mg/dL (8.5-10.1); Chloride 107 mmol/L (98-107); Creatinine, Serum 0.93 mg/dL (0.70-1.30); EST Glomerular Filtration Rate 82 mL/min (>60); Est Glom Filt Rate - Afr Amer 100 mL/min (>60); Globulin 2.9 g/dL (2.2-4.2); Glucose 122 mg/dL (74-106); Potassium 4.1 mmol/L (3.5-5.1); Protein, Total 5.8 g/dL (6.4-8.2); Sodium Level 140 mmol/L (136-145)
== END ==
LOC: OLS.WHLTSB 05:00
PROVIDERS: PCP Family Medicine; Visit Provider Internal Medicine
DX: E11.9 Type 2 diabetes mellitus without complications (principal)
CPT/HCPCS: 36415; 80048; 80076; 83036; 85025

== ENCOUNTER → 2024-01-07 | Outpatient (REF) | payer MEDICARE, SELFPAY ==
[2024-01-07 08:53] LABS: Absolute Lymphocyte Count 1.62 X10^3/uL (0.83-4.51); Absolute Neutrophil Count 3.3 X10^3/uL (2.0-7.7); Basophil# 0.06 X10^3/uL; Eosinophil# 0.23 X10^3/uL; Eosinophils% 3.9 % (0-5); Hematocrit 40.1 % (40-54); Hemoglobin 13.5 g/dL (13.0-16.5); Lymphocyte # 1.62 X10^3/ul (0.83-4.51); Lymphocyte % 27.3 % (19-41); Mean Corp Hgb Conc 33.7 g/dL (32-36); Mean Corpuscular Hgb 30.3 pg (27.0-32.0); Mean Corpuscular Volume 90.1 fL (80-94); Mean Platelet Vol. 11.4 fl (6.2-12.0); Monocyte# 0.71 X10^3/uL; NRBC Flagged by Analyzer 0 % (0-5); Neutrophil # 3.29 X10^3/uL (2.7-7.7); Neutrophil % 55.5 % (47-70); POSITIVE COUNT YES; RBC Distribution Width CV 13.2 % (11.6-14.6); RBC Distribution Width SD 43.1 fl (35.1-43.9); Red Blood Count 4.45 M/mm3 (4.6-6.2); White Blood Count 5.9 K/mm3 (4.4-11.0)
[2024-01-07 09:06] LABS: Anion Gap 5 (5-15); BUN 23 mg/dL (7-18); BUN/Creat Ratio 19.5 RATIO (10-20); Calcium,Total 8.5 mg/dL (8.5-10.1); Chloride 108 mmol/L (98-107); Creatinine, Serum 1.18 mg/dL (0.70-1.30); EST Glomerular Filtration Rate 63 mL/min (>60); Est Glom Filt Rate - Afr Amer 76 mL/min (>60); Glucose 111 mg/dL (74-106); Potassium 4.1 mmol/L (3.5-5.1); Sodium Level 139 mmol/L (136-145)
[2024-01-07 11:06] LABS: Platelet Estimate MOD DEC (ADEQ)
[2024-01-07 11:08] LABS: Differential Indicated SCAN CRITERIA MET
== END ==
LOC: OLS.WHLTSB 05:00
PROVIDERS: PCP Family Medicine; Visit Provider Internal Medicine
DX: E11.9 Type 2 diabetes mellitus without complications (principal); G30.9 Alzheimer's disease, unspecified
CPT/HCPCS: 36415; 80048; 85025

== ENCOUNTER → 2024-02-04 05:00 | Outpatient (REF) | payer MEDICARE, SELFPAY ==
[2024-02-04 06:56] LABS: Absolute Lymphocyte Count 1.85 X10^3/uL (0.83-4.51); Absolute Neutrophil Count 3.4 X10^3/uL (2.0-7.7); Basophil# 0.07 X10^3/uL; Basophil% 1.1 % (0-1); Eosinophils% 4.7 % (0-5); Hemoglobin 12.6 g/dL (13.0-16.5); Lymphocyte # 1.85 X10^3/ul (0.83-4.51); Lymphocyte % 29.2 % (19-41); Mean Corp Hgb Conc 33.2 g/dL (32-36); Mean Corpuscular Hgb 29.7 pg (27.0-32.0); Mean Corpuscular Volume 89.6 fL (80-94); Mean Platelet Vol. 9.8 fl (6.2-12.0); Monocyte# 0.72 X10^3/uL; Monocyte% 11.4 % (0-10); NRBC Flagged by Analyzer 0 % (0-5); Neutrophil # 3.37 X10^3/uL (2.7-7.7); Neutrophil % 53.3 % (47-70); Platelet Count 180 K/mm3 (150-450); RBC Distribution Width CV 12.9 % (11.6-14.6); RBC Distribution Width SD 42.7 fl (35.1-43.9); Red Blood Count 4.24 M/mm3 (4.6-6.2); White Blood Count 6.3 K/mm3 (4.4-11.0)
[2024-02-04 07:05] LABS: Anion Gap 3 (5-15); BUN 21 mg/dL (7-18); BUN/Creat Ratio 19.3 RATIO (10-20); Calcium,Total 8.1 mg/dL (8.5-10.1); Chloride 107 mmol/L (98-107); Creatinine, Serum 1.09 mg/dL (0.70-1.30); EST Glomerular Filtration Rate 69 mL/min (>60); Est Glom Filt Rate - Afr Amer 83 mL/min (>60); Glucose 124 mg/dL (74-106); Potassium 4.2 mmol/L (3.5-5.1); Sodium Level 138 mmol/L (136-145)
== END ==
LOC: OLS.WHLTSB 05:00
PROVIDERS: PCP Family Medicine; Visit Provider Internal Medicine
DX: E11.9 Type 2 diabetes mellitus without complications (principal)
CPT/HCPCS: 36415; 80048; 85025

== ENCOUNTER → 2024-03-03 | Outpatient (REF) | payer MEDICARE, SELFPAY ==
[2024-03-03 08:02] LABS: Absolute Lymphocyte Count 2.15 X10^3/uL (0.83-4.51); Absolute Neutrophil Count 4.2 X10^3/uL (2.0-7.7); Basophil# 0.06 X10^3/uL; Basophil% 0.8 % (0-1); Eosinophil# 0.24 X10^3/uL; Eosinophils% 3.2 % (0-5); Hematocrit 42.8 % (40-54); Hemoglobin 14.2 g/dL (13.0-16.5); Lymphocyte # 2.15 X10^3/ul (0.83-4.51); Lymphocyte % 28.7 % (19-41); Mean Corp Hgb Conc 33.2 g/dL (32-36); Mean Corpuscular Hgb 29.7 pg (27.0-32.0); Mean Corpuscular Volume 89.5 fL (80-94); Monocyte# 0.77 X10^3/uL; Monocyte% 10.3 % (0-10); NRBC Flagged by Analyzer 0 % (0-5); Neutrophil # 4.24 X10^3/uL (2.7-7.7); Neutrophil % 56.6 % (47-70); Platelet Count 199 K/mm3 (150-450); RBC Distribution Width CV 12.3 % (11.6-14.6); RBC Distribution Width SD 40.5 fl (35.1-43.9); Red Blood Count 4.78 M/mm3 (4.6-6.2); White Blood Count 7.5 K/mm3 (4.4-11.0)
[2024-03-03 08:45] LABS: AST(SGOT) 17 U/L (15-37); Alanine Aminotransfer ALT/SGPT 20 U/L (16-61); Albumin, Serum 3.2 g/dL (3.2-5.0); Alkaline Phosphatase 45 U/L (45-117); Anion Gap 2 (5-15); BUN 20 mg/dL (7-18); BUN/Creat Ratio 18.5 RATIO (10-20); Bilirubin, Direct 0.15 mg/dL (0.00-0.30); Calcium,Total 8.7 mg/dL (8.5-10.1); Chloride 105 mmol/L (98-107); Creatinine, Serum 1.08 mg/dL (0.70-1.30); EST Glomerular Filtration Rate 69 mL/min (>60); Est Glom Filt Rate - Afr Amer 84 mL/min (>60); Globulin 2.9 g/dL (2.2-4.2); Glucose 135 mg/dL (74-106); Potassium 4.3 mmol/L (3.5-5.1); Protein, Total 6.1 g/dL (6.4-8.2); Sodium Level 138 mmol/L (136-145)
[2024-03-03 09:19] LABS: Hemoglobin A1c 6.4 % (3.8-5.6)
== END ==
LOC: OLS.WHLTSB 05:00
PROVIDERS: PCP Family Medicine; Visit Provider Internal Medicine
DX: E11.9 Type 2 diabetes mellitus without complications (principal); G30.9 Alzheimer's disease, unspecified; F66 Other sexual disorders; R19.7 Diarrhea, unspecified; M54.50 Low back pain, unspecified
CPT/HCPCS: 36415; 80048; 80076; 83036; 85025

== ENCOUNTER → 2024-04-07 05:00 | Outpatient (REF) | payer MEDICARE, SELFPAY ==
[2024-04-07 09:14] LABS: Absolute Lymphocyte Count 1.79 X10^3/uL (0.83-4.51); Absolute Neutrophil Count 3.9 X10^3/uL (2.0-7.7); Basophil# 0.06 X10^3/uL; Basophil% 0.9 % (0-1); Eosinophil# 0.15 X10^3/uL; Eosinophils% 2.3 % (0-5); Hematocrit 42.7 % (40-54); Hemoglobin 13.9 g/dL (13.0-16.5); Lymphocyte # 1.79 X10^3/ul (0.83-4.51); Lymphocyte % 27.1 % (19-41); Mean Corp Hgb Conc 32.6 g/dL (32-36); Mean Corpuscular Hgb 28.7 pg (27.0-32.0); Mean Corpuscular Volume 88.2 fL (80-94); Mean Platelet Vol. 10.4 fl (6.2-12.0); Monocyte# 0.73 X10^3/uL; NRBC Flagged by Analyzer 0 % (0-5); Neutrophil # 3.85 X10^3/uL (2.7-7.7); Neutrophil % 58.2 % (47-70); Platelet Count 228 K/mm3 (150-450); RBC Distribution Width CV 12.1 % (11.6-14.6); RBC Distribution Width SD 38.6 fl (35.1-43.9); Red Blood Count 4.84 M/mm3 (4.6-6.2); White Blood Count 6.6 K/mm3 (4.4-11.0)
[2024-04-07 09:43] LABS: Anion Gap 6 (5-15); BUN 22 mg/dL (7-18); BUN/Creat Ratio 19.8 RATIO (10-20); Calcium,Total 8.8 mg/dL (8.5-10.1); Chloride 104 mmol/L (98-107); Creatinine, Serum 1.11 mg/dL (0.70-1.30); EST Glomerular Filtration Rate 67 mL/min (>60); Est Glom Filt Rate - Afr Amer 81 mL/min (>60); Glucose 117 mg/dL (74-106); Sodium Level 138 mmol/L (136-145)
== END ==
LOC: OLS.WHLTSB 05:00
PROVIDERS: PCP Family Medicine; Visit Provider Internal Medicine
DX: G30.9 Alzheimer's disease, unspecified (principal); F66 Other sexual disorders; R19.7 Diarrhea, unspecified; M54.50 Low back pain, unspecified; Z74.1 Need for assistance with personal care; R26.2 Difficulty in walking, not elsewhere classified; E11.9 Type 2 diabetes mellitus without complications
CPT/HCPCS: 36415; 80048; 85025

== ENCOUNTER → 2024-05-05 | Outpatient (REF) | payer MEDICARE, SELFPAY ==
[2024-05-05 07:46] LABS: Absolute Lymphocyte Count 1.75 X10^3/uL (0.83-4.51); Absolute Neutrophil Count 4.3 X10^3/uL (2.0-7.7); Basophil# 0.05 X10^3/uL; Basophil% 0.7 % (0-1); Eosinophil# 0.18 X10^3/uL; Eosinophils% 2.5 % (0-5); Hemoglobin 14.3 g/dL (13.0-16.5); Lymphocyte # 1.75 X10^3/ul (0.83-4.51); Lymphocyte % 24.7 % (19-41); Mean Corp Hgb Conc 34.9 g/dL (32-36); Mean Corpuscular Volume 86.1 fL (80-94); Monocyte% 11.3 % (0-10); NRBC Flagged by Analyzer 0 % (0-5); Neutrophil # 4.29 X10^3/uL (2.7-7.7); Neutrophil % 60.5 % (47-70); Platelet Count 174 K/mm3 (150-450); RBC Distribution Width CV 12.5 % (11.6-14.6); RBC Distribution Width SD 39.3 fl (35.1-43.9); Red Blood Count 4.76 M/mm3 (4.6-6.2); White Blood Count 7.1 K/mm3 (4.4-11.0)
[2024-05-05 08:11] LABS: Anion Gap 10 (5-15); BUN 25 mg/dL (4-19); BUN/Creat Ratio 25.1 RATIO (10-20); Calcium,Total 8.2 mg/dL (7.6-11.0); Carbon Dioxide 24.1 mmol/L (21.0-32.0); Chloride 102 mmol/L (98-108); Creatinine, Serum 0.98 mg/dL (0.70-1.20); EST Glomerular Filtration Rate 77 (>60); Glucose 116 mg/dL (70-99); Sodium Level 137 mmol/L (133-145)
== END ==
LOC: OLS.WHLTSB 05:00
PROVIDERS: PCP Family Medicine; Visit Provider Internal Medicine
DX: E11.9 Type 2 diabetes mellitus without complications (principal); G30.9 Alzheimer's disease, unspecified; M54.50 Low back pain, unspecified
CPT/HCPCS: 36415; 80048; 85025

== ENCOUNTER → 2024-06-02 | Outpatient (REF) | payer MEDICARE, SELFPAY ==
[2024-06-02 08:35] LABS: Absolute Lymphocyte Count 1.76 X10^3/uL (0.83-4.51); Absolute Neutrophil Count 4.5 X10^3/uL (2.0-7.7); Basophil# 0.05 X10^3/uL; Basophil% 0.7 % (0-1); Eosinophil# 0.19 X10^3/uL; Eosinophils% 2.5 % (0-5); Hematocrit 42.2 % (40-54); Hemoglobin 14.1 g/dL (13.0-16.5); Lymphocyte # 1.76 X10^3/ul (0.83-4.51); Lymphocyte % 23.1 % (19-41); Mean Corp Hgb Conc 33.4 g/dL (32-36); Mean Corpuscular Hgb 28.3 pg (27.0-32.0); Mean Corpuscular Volume 84.6 fL (80-94); Mean Platelet Vol. 10.2 fl (6.2-12.0); Monocyte# 1.08 X10^3/uL; Monocyte% 14.2 % (0-10); NRBC Flagged by Analyzer 0 % (0-5); Neutrophil # 4.53 X10^3/uL (2.7-7.7); Neutrophil % 59.2 % (47-70); Platelet Count 214 K/mm3 (150-450); RBC Distribution Width SD 39.9 fl (35.1-43.9); Red Blood Count 4.99 M/mm3 (4.6-6.2); White Blood Count 7.6 K/mm3 (4.4-11.0)
[2024-06-02 09:15] LABS: Hemoglobin A1c 6.8 % (<=5.6)
[2024-06-02 09:55] LABS: AST(SGOT) 22 U/L (<=37); Alanine Aminotransfer ALT/SGPT 12 U/L (<=46); Albumin, Serum 3.5 g/dL (3.4-4.8); Alkaline Phosphatase 53 U/L (40-129); Anion Gap 11 (5-15); BUN 17 mg/dL (4-19); BUN/Creat Ratio 17.9 RATIO (10-20); Bilirubin, Direct 0.29 mg/dL (0.00-0.30); Calcium,Total 8.7 mg/dL (7.6-11.0); Carbon Dioxide 24.4 mmol/L (21.0-32.0); Chloride 101 mmol/L (98-108); Creatinine, Serum 0.96 mg/dL (0.70-1.20); EST Glomerular Filtration Rate 79 (>60); Globulin 2.5 g/dL (2.2-4.2); Glucose 149 mg/dL (70-99); Sodium Level 137 mmol/L (133-145); Total Bilirubin 0.77 mg/dL (0.00-1.30)
== END ==
LOC: OLS.WHLTSB 04:00
PROVIDERS: PCP Family Medicine; Referring Provider Internal Medicine; Visit Provider Internal Medicine
DX: F66 Other sexual disorders (principal); R19.7 Diarrhea, unspecified; M54.50 Low back pain, unspecified; G30.9 Alzheimer's disease, unspecified; E11.9 Type 2 diabetes mellitus without complications; Z74.1 Need for assistance with personal care; R26.2 Difficulty in walking, not elsewhere classified; Z23 Encounter for immunization
CPT/HCPCS: 36415; 80048; 80076; 83036; 85025

== ENCOUNTER → 2024-06-30 | Outpatient (REF) | payer MEDICARE, SELFPAY ==
[2024-06-30 08:20] LABS: Absolute Lymphocyte Count 1.98 X10^3/uL (0.83-4.51); Absolute Neutrophil Count 4.4 X10^3/uL (2.0-7.7); Basophil# 0.06 X10^3/uL; Basophil% 0.8 % (0-1); Eosinophil# 0.19 X10^3/uL; Eosinophils% 2.5 % (0-5); Hematocrit 42.8 % (40-54); Hemoglobin 14.3 g/dL (13.0-16.5); Lymphocyte # 1.98 X10^3/ul (0.83-4.51); Lymphocyte % 26.4 % (19-41); Mean Corp Hgb Conc 33.4 g/dL (32-36); Mean Corpuscular Hgb 28.2 pg (27.0-32.0); Mean Corpuscular Volume 84.4 fL (80-94); Mean Platelet Vol. 10.1 fl (6.2-12.0); Monocyte# 0.89 X10^3/uL; Monocyte% 11.9 % (0-10); NRBC Flagged by Analyzer 0 % (0-5); Neutrophil # 4.35 X10^3/uL (2.7-7.7); Neutrophil % 58.1 % (47-70); Platelet Count 184 K/mm3 (150-450); RBC Distribution Width CV 13.1 % (11.6-14.6); RBC Distribution Width SD 40.3 fl (35.1-43.9); Red Blood Count 5.07 M/mm3 (4.6-6.2); White Blood Count 7.5 K/mm3 (4.4-11.0)
[2024-06-30 08:33] LABS: Anion Gap 8 (5-15); BUN 19 mg/dL (4-19); BUN/Creat Ratio 18.3 RATIO (10-20); Calcium,Total 8.6 mg/dL (7.6-11.0); Carbon Dioxide 25.6 mmol/L (21.0-32.0); Chloride 103 mmol/L (98-108); Creatinine, Serum 1.03 mg/dL (0.70-1.20); EST Glomerular Filtration Rate 72 (>60); Glucose 130 mg/dL (70-99); Potassium 4.3 mmol/L (3.3-5.1); Sodium Level 137 mmol/L (133-145)
== END ==
LOC: OLS.WHLTSB 05:00
PROVIDERS: PCP Family Medicine; Visit Provider Internal Medicine
DX: E11.9 Type 2 diabetes mellitus without complications (principal); G30.9 Alzheimer's disease, unspecified
CPT/HCPCS: 36415; 80048; 85025

== ENCOUNTER → 2024-08-04 05:00 | Outpatient (REF) | payer MEDICARE, SELFPAY ==
--- OUTSIDE RECORDS SUMMARY | 2024-08-04 03:57 | XMS RPT_ITS | CCD ---
Author Organization [facility] Inform ion [facility] Care Team Providers Care Nurse Wound Care Name Role Phone Dr. Chele Leyva DO Primary Care Provider Renay GASTON, Dr. Santos Attending Provider Danielle Niño MD Attending Provider Nawaf Haynes NP-CLili Attending Provider Dr. Chele Leyva DO Primary Care Provider Renay GASTON, Dr. Santos Attending Provider [phone] Danielle Niño MD Referring Provider Dr. Chele Lara DO Primary Care Provider Danielle Niño MD Attending Provider Unavailcorin Haynes NP-CLili Attending Provider Cheel Leyva Primary Care Unavailable Jacinta Braswell Attending Unavailable Chele Leyva Primary Care Unavailable Karen Niñoewongbe Attending Unavailable Chele Leyva Primary Care Unavailable Lili Haynes NP Attending Unavailable Chele Leyva Primary Care Unavailable Charlotte Niñobe Attending Unavailable Chele Leyva Primary Care Unavailable Oleshilohe JOSEPHINE, Efewongbe Attending Unavailabl e Oleghe OLS, Efaustinongbe Attending UnavailChele Vargas Primary Care Unavailable Oleghe OLS, Efewongbe Referring UnavailChele Vargas Primary Care Unavailable Oleghe OLS, Efewongbe Attending UnavailChele Vargas Primary Care Unavailable Oleghe OLS, Efewongbe Attending Unavailabl e Oleghe OLS, Efewongbe Referring UnavailChele Vargas Primary Care Unavailable Oleghe OLS, Efewongbe Attending Unavailabl Chele Moreira Primary Care Unavailable Oleghe OLS, Efewongbe Attending Unavailabl e Oleghe OLS, Efewongbe Referring Unavailabl e Oleghe OLS, Efewongbe Attending Unavailabl e AutumnChele jon Primary Care Unavailable Chele Leyva Primary Care Unavailable Oleghe, Efewongbe Attending Unavailable [place] [employer]ACH[employer] TENDER, Lili Attending Unavailable Chele Leyva Primary Care Unavailable Oleghe, Efewongbe Attending Unavailable AutumnChele jon Primary Care Unavailable Chele Leyva Primary Care Unavailable [place] [employer] MA[employer] MACHINE TENDER, Lili Attending Unavailable Chele Leyva Primary Care Unavailable Jacinta Braswell Attending Unavailable Chele Leyva Primary Care Unavailable Oleghe, Efewongbe Attending Unavailable Chele Leyva Primary Care Unavailable [place] [employer] MA[employer] MACHINE TENDER, Llii Attending Unavailable Oleghe OLS, Efewongbe Attending Unavailabl e Chele Leyva Primary Care Unavailable Oleghe OLS, Efewongbe Attending UnavailChele Vargas Primary Care Unavailable Oleghe OLS, Efewongbe Attending Unavailabl e Chele Leyva Primary Care Unavailable Chele Leyva Primary Care Unavailable Oleghe OLS, Efewongbe Attending Unavailabl Chele Moreira Primary Care Unavailable Oleghe OLS, Efewongbe Attending Unavailabl e Oleghe OLS, Efewongbe Attending Unavailabl Chele Moreira Primary Care Unavailable Dr. Chele Leyva DO Primary Care Provider [phone] Danielle Niño MD Attending Provider Unavaila ble Medications Current Medications Medication Drug Class(es) Dates Sig (Normalized) Sig (Original) finasteride 5 mg oral tablet (10 sources) 5-alpha Reductase Inhibitor Start: 11-30-2015 take 1 tablet by mouth once daily Finasteride 5 MG tablet Active 5 mg PO DAILY November 30, 2015 12:00am lisinopril 2.5 mg oral tablet (10 sources) Angiotensin Converting Enzyme Inhibitor Start: 09-10-2014 take 1 tablet by mouth once daily Lisinopril 2.5 MG tablet Active 2.5 mg PO DAILY September 10, 2014 12:00am oxyCODONE hydrochloride 5 mg oral tablet (20 sources) Opioid Agonist Start: 05-31-2024 End: 07-04-2024 take 1 tablet by mouth twice daily Oxycodone 5 mg tablet Active 5 mg PO TWICE A DAY 60 July 04, 2024 August 02, 2024 12:00am Start: 02-22-2024 End: 03-31-2024 take 1 tablet by mouth twice daily Oxycodone 5 mg tablet Discontinued 5 mg PO TWICE A DAY 60 March 01, 2024 March 30, 2024 1:00am March 31, 2024 1:11am Start: 02-18-2024 End: 03-01-2024 take 2.5 mg by mouth twice daily Oxycodone 5 mg tablet Discontinued 2.5 mg PO TWICE A DAY 30 February 18, 2024 March 18, 2024 1:00am March 01, 2024 1:00pm Pancreas Balance (10 sources) Start: 11-30-2015 Pancreas Ambika ce Active 2 {tbl} PO TWICE A DAY November 30, 2015 12:00am Start: 11-30-2015 take 2 tablets by mo ut twice daily Pancreas Balance Active 2 TABLET PO TWICE A DAY November 29, 2015 11:00pm Start: 11-30-2015 take 2 tablets by mo uth twice daily Pancreas Balance Active 2 TABLET PO TWICE A DAY November 30, 2015 12:00am Completed/Discontinued Medications Medication Drug Class(es) Dates Sig (Normalized) Sig (Original) LORazepam 0.5 mg oral tablet (19 sources) Benzodiazepine Start: 03-01-2024 End: 05-31-2024 take 1 tablet by mouth twice daily Lorazepam 0.5 mg tablet Discontinued 0.5 mg PO TWICE A DAY 60 May 03, 2024 11:32am May 31, 2024 11:09am Problems Problem Classification Problem Date Documented Da te Episodic/Chronic Administrative/social admission (1 source) Need for assistance with personal care; Translations: [Need for assistance with personal care] Onset: 06-03-2024 Episodic Conduction disorders (1 source) Left bundle-branch block, unspecified; Translations: [Left bundle-branch block, unspecified] Onset: 10-26-2023 Chronic Delirium, dementia, and amnestic and other cognitive disorders (1 source) Alzheimer's disease, unspecified; Translations: [Alzheimer's disease, unspecified] Onset: 06-03-2024 Chronic Diabetes mellitus without complication (2 sources) Type 2 diabetes mellitus without complications; Translations: [Type 2 diabetes mellitus without complications] Onset: 04-27-2024 Chronic Esophageal disorders (1 source) Gastro-esophageal reflux disease without esophagitis; Translations: [Gastro-esophageal reflux disease without esophagitis] Onset: 10-26-2023 Chronic Essential hypertension (1 source) Essential (primary) hypertension; Translations: [Essential (primary) hypertension] Onset: 10-26-2023 Chronic Hyperplasia of prostate (1 source) Benign prostatic hyperplasia without lower urinary tract symptoms; Translations: [Benign prostatic hyperplasia without lower urinary tract symptoms] Onset: 10-26-2023 Chronic Immunizations and screening for infectious disease (1 source) Encounter for immunization; Translations: [Encounter for immunization] Onset: 06-03-2024 Episodic Miscellaneous mental health disorders (1 source) Other sexual disorders; Translations: [Other sexual disorders] Onset: 06-03-2024 Chronic Other gastrointestinal disorders (1 source) Diarrhea, unspecified; Translations: [Diarrhea, unspecified] Onset: 06-03-2024 Episodic Other inflammatory condition of skin (1 source) Rosacea, unspecified; Translations: [Rosacea, unspecified] Onset: 10-26-2023 Chronic Other nervous system disorders (4 sources) Chronic pain; Translations: [Other chronic pain] 02-18-2024 Chronic Unclassified (1 source) Low back pain, unspecified; Translations: [Low back pain, unspecified] Onset: 06-03-2024 Results Test Name Value Interpretation Reference Range Facility Absolute lymphocyte countOrd ered By: Danielle Niño on 06-30-2024 Lymphocytes Auto (Unsp spec) [#/Vol] 1.98 10*3/uL 0.83-4.51 [facility] Absolute neutrophil countOrd ered By: Danielle Niño on 06-30-2024 Neutrophils (Bld) [#/Vol] 4.4 10*3/uL 2.0-7.7 [facility] Anion gap in Serum or Plasma Ordered By: Danielle Niño on 06-30-2024 Anion gap [Moles/Vol] 8 mmol/L 06-30 [facility] Automated lymphocyte count a s percentage of total leukocytesOrdered By: Danielle Niño on 06-30-2024 Lymphocytes/100 WBC Auto (Unsp spec) 26.4 % 19-41 [facility] BUN/creatinine ratioOrdered By: Karenjuan Niño on 06-30-2024 Urea nitrogen/Creatinine [Mass ratio] 18.3 mg/mg 10-20 [facility] Basophil percentageOrdered B y: Carlypenelopeamanda Palacioshilohstalin on 06-30-2024 Basophils/100 WBC (Bld) 0.8 % 0-1 [facility] Carbon dioxide, total [Moles /volume] in Central venous bloodOrdered By: [facility] on 06-30-2024 CO2 [Moles/Vol] 25.6 mmol/L 21.0-32.0 [facility] Chloride assayOrdered By: Karen austinjuany Niño on 06-30-2024 Chloride [Moles/Vol] 103 mmol/L 98-108 [facility] Eosinophil percentageOrdered By: austinauburnamanda Niño on 06-30-2024 Eosinophils/100 WBC (Bld) 2.5 % 0-5 [facility] Erythrocyte distribution wid th ratioOrdered By: [facility] Renay on 06-30-2024 Erythrocyte distribution width (RBC) [Ratio] 13.1 % 11.6-14.6 [facility] Erythrocyte distribution wid th standard deviationOrdered By: [facility] Hakeemstalin on 06-30-2024 Erythrocyte distribution width (RBC) [Ratio] 40.3 fl 35.1-43.9 [facility] Glomerular filtration rate ( GFR) estimation/1.73 sq m using serum, plasma, or whole bOrdered By: juan Niño on 06-30-2024 GFR/1.73 sq M.predicted among non-blacks MDRD (S/P/Bld) [Vol rate/Area] 72 mL/min/{1.73_m2} >60 [facility] Comment on above: mL/min/1.73m2 CKD-EP I Creatinine Equation (2020) Hematocrit Auto (Bld) [Volum e fraction]Ordered By: austinauburnamanda Niño on 06-30-2024 Hematocrit (Bld) [Volume fraction] 42.8 % 40-54 [facility] Hemoglobin measurementOrdere d By: Danielle Niño on 06-30-2024 Hemoglobin (Bld) [Mass/Vol] 14.3 g/dL 13.0-16.5 [facility] Immature granulocytes/100 WB C Auto (Bld)Ordered By: Danielle Niño on 06-30-2024 Immature granulocytes/100 WBC (Bld) 0.300 % 0.0-0.9 [facility] Comment on above: IG% - Immature Granu locytes (promyelocytes, myelocytes and metamyelocytes) > 1% indicates that a LEFT SHIFT is Present. MCV (mean corpuscular volume ) determinationOrdered By: Danielle Niño on 06-30-2024 MCV (RBC) [Entitic vol] 84.4 fL 80-94 [facility] Mean corpuscular hemoglobin (MCH) determinationOrdered By: austinauburnamanda Niño on 06-30-2024 MCH (RBC) [Entitic mass] 28.2 pg 27.0-32.0 [facility] Mean corpuscular hemoglobin concentration (MCHC) determinationOrdered By: [facility] on 06-30-2024 MCHC (RBC) [Mass/Vol] 33.4 g/dL 32-36 [facility] Mean platelet volume determi nationOrdered By: Danielle Niño on 06-30-2024 Platelet mean volume (Bld) [Entitic vol] 10.1 fL 6.2-12.0 [facility] Monocyte percentageOrdered B y: Danielle Niño on 06-30-2024 Monocytes/100 WBC (Bld) 11.9 % High 0-10 [facility] Neutrophil percentageOrdered By: juan Niño on 06-30-2024 Neutrophils/100 WBC (Bld) 58.1 % 47-70 [facility] Nucleated red blood cell per centageOrdered By: Danielle Niño on 06-30-2024 Nucleated RBC/100 WBC (Bld) [Ratio] 0 % 0-5 [facility] Platelet countOrdered By: Karen Niño on 06-30-2024 Platelets (Bld) [#/Vol] 184 10*3/uL 150-450 [facility] Potassium measurement (mass/ volume)Ordered By: Karenaustinpenelopeamanda Palacioshilohstalin on 06-30-2024 Potassium (Unsp spec) [Mass/Vol] 4.3 mmol/L 3.3-5.1 [facility] RBC Auto (Bld) [#/Vol]Ordere d By: Karenaustinjuany Hakeemshilohstalin on 06-30-2024 RBC (Bld) [#/Vol] 5.07 10*6/uL 4.6-6.2 [facility] Serum creatinine measurement (mass/volume)Ordered By: Danielle Niño on 06-30-2024 Creatinine [Mass/Vol] 1.03 mg/dL 0.70-1.20 [facility] Serum glucose measurement (m ass/volume)Ordered By: Danielle Niño on 06-30-2024 Glucose [Mass/Vol] 130 mg/dL High 70-99 [facility] Serum or plasma calcium adore urement (mass/volume)Ordered By: Danielle Niño on 06-30-2024 Calcium [Mass/Vol] 8.6 mg/dL 7.6-11.0 [facility] Serum or plasma urea nitroge n measurement (mass/volume)Ordered By: Karenaustinpenelopeamanda Palacioshilohstalin on 06-30-2024 Urea nitrogen [Mass/Vol] 19 mg/dL 4-19 [facility] Sodium levelOrdered By: Carly harrington Hakeemshilohstalin on 06-30-2024 Sodium [Moles/Vol] 137 mmol/L 133-145 [facility] White blood cell (WBC) count Ordered By: Danielle Palacioshilohstalin on 06-30-2024 WBC (Bld) [#/Vol] 7.5 10*3/uL 4.4-11.0 [facility] Absolute lymphocyte countOrd ered By: Carlypenelopeamanda Palacioshilohstalin on 06-02-2024 Lymphocytes Auto (Unsp spec) [#/Vol] 1.76 10*3/uL 0.83-4.51 [facility] Absolute neutrophil countOrd ered By: Danielle Niño on 06-02-2024 Neutrophils (Bld) [#/Vol] 4.5 10*3/uL 2.0-7.7 [facility] Anion gap in Serum or Plasma Ordered By: Danielle Niño on 06-02-2024 Anion gap [Moles/Vol] 11 mmol/L 5-15 [facility] Automated lymphocyte count a s percentage of total leukocytesOrdered By: Danielle Niño on 06-02-2024 Lymphocytes/100 WBC Auto (Unsp spec) 23.1 % 19-41 [facility] BUN/creatinine ratioOrdered By: Danielle Niño on 06-02-2024 Urea nitrogen/Creatinine [Mass ratio] 17.9 mg/mg 10-20 [facility] Basophil percentageOrdered B y: Danielle Niño on 06-02-2024 Basophils/100 WBC (Bld) 0.7 % 0-1 [facility] Bilirubin directOrdered By: Danielle Niño on 06-02-2024 Bilirubin.direct [Mass/Vol] 0.29 mg/dL 0.00-0.30 [facility] Bilirubin, totalOrdered By: Danielle Niño on 06-02-2024 Bilirubin [Mass/Vol] 0.77 mg/dL 0.00-1.30 [facility] Carbon dioxide, total [Moles /volume] in Central venous bloodOrdered By: Danielle Niño on 06-02-2024 CO2 [Moles/Vol] 24.4 mmol/L 21.0-32.0 [facility] Chloride assayOrdered By: Karen Niño on 06-02-2024 Chloride [Moles/Vol] 101 mmol/L 98-108 [facility] Eosinophil percentageOrdered By: Danielle Niño on 06-02-2024 Eosinophils/100 WBC (Bld) 2.5 % 0-5 [facility] Erythrocyte distribution wid th (RBC) [Ratio]Ordered By: Danielle Niño on 06-02-2024 Erythrocyte distribution width (RBC) [Entitic vol] 39.9 fL 35.1-43.9 [facility] Erythrocyte distribution wid th ratioOrdered By: Danielle Niño on 06-02-2024 Erythrocyte distribution width (RBC) [Ratio] 13.0 % 11.6-14.6 [facility] Erythrocyte distribution wid th standard deviationOrdered By: Danielle Niño on 06-02-2024 Erythrocyte distribution width (RBC) [Ratio] 39.9 fl 35.1-43.9 [facility] GFR/1.73 sq M.predicted venkata g non-blacks MDRD (S/P/Bld) [Vol rate/Area]Ordered By: Danielle Niño on 06-02-2024 Estimated GFR (MDRD) Non-Af Amer [address] >60 [facility] Comment on above: mL/min/1.73m2 CKD-EP I Creatinine Equation (2020) Glomerular filtration rate ( GFR) estimation/1.73 sq m using serum, plasma, or whole bOrdered By: Danielle Niño on 06-02-2024 GFR/1.73 sq M.predicted among non-blacks MDRD (S/P/Bld) [Vol rate/Area] 79 mL/min/{1.73_m2} >60 [facility] Comment on above: mL/min/1.73m2 CKD-EP I Creatinine Equation (2020) Hematocrit Auto (Bld) [Volum e fraction]Ordered By: Danielle Niño on 06-02-2024 Hematocrit (Bld) [Volume fraction] 42.2 % 40-54 [facility] Hemoglobin A1c percentageOrd ered By: Danielle Niño on 06-02-2024 HbA1c (Bld) [Mass fraction] 6.8 % High <5.7 [facility] Comment on above: Normal < 5.7 % Predi abetic 5.7 - 6.4 % Diabetic >or= 6.5 % Please note range changes. Hemoglobin measurementOrdere d By: Danielle Niño on 06-02-2024 Hemoglobin (Bld) [Mass/Vol] 14.1 g/dL 13.0-16.5 [facility] Immature granulocytes/100 WB C Auto (Bld)Ordered By: Danielle Niño on 06-02-2024 Immature granulocytes/100 WBC (Bld) 0.300 % 0.0-0.9 [facility] Comment on above: IG% - Immature Granu locytes (promyelocytes, myelocytes and metamyelocytes) > 1% indicates that a LEFT SHIFT is Present. Laboratory - Chemistry and C hemistry - challengeOrdered By: Danielle Niño on 06-02-2024 AST [Catalytic activity/Vol] 22 U/L <38 [facility] Lymphocytes Auto (Unsp spec) [#/Vol]Ordered By: Danielle Niño on 06-02-2024 Lymphocytes (Bld) [#/Vol] 1.76 10*3/uL 0.83-4.[address] [facility] Lymphocytes/100 WBC Auto (Un sp spec)Ordered By: Danielle Niño on 06-02-2024 Lymphocytes/100 WBC (Bld) 23.1 % 19-41 [facility] MCV (mean corpuscular volume ) determinationOrdered By: Danielle Niño on 06-02-2024 MCV (RBC) [Entitic vol] 84.6 fL 80-94 [facility] Mean corpuscular hemoglobin (MCH) determinationOrdered By: Danielle Niño on 06-02-2024 MCH (RBC) [Entitic mass] 28.3 pg 27.0-32.0 [facility] Mean corpuscular hemoglobin concentration (MCHC) determinationOrdered By: Danielle Niño on 06-02-2024 MCHC (RBC) [Mass/Vol] 33.4 g/dL 32-36 [facility] Mean platelet volume determi nationOrdered By: austinauburnamanda Niño on 06-02-2024 Platelet mean volume (Bld) [Entitic vol] 10.2 fL 6.2-12.0 [facility] Monocyte percentageOrdered B y: Danielle Niño on 06-02-2024 Monocytes/100 WBC (Bld) 14.2 % High 0-10 [facility] Neutrophil percentageOrdered By: [facility] Palaciostalin on 06-02-2024 Neutrophils/100 WBC (Bld) 59.2 % 47-70 [facility] Nucleated red blood cell per centageOrdered By: juan Niño on 06-02-2024 Nucleated RBC/100 WBC (Bld) [Ratio] 0 % 0-5 [facility] Platelet countOrdered By: Karen Niño on 06-02-2024 Platelets (Bld) [#/Vol] 214 10*3/uL 150-450 [facility] Potassium (Unsp spec) [Mass/ Vol]Ordered By: Danielle Niño on 06-02-2024 Potassium [Moles/Vol] 4.0 mmol/L 3.3-5.1 [facility] Potassium measurement (mass/ volume)Ordered By: Danielle Niño on 06-02-2024 Potassium (Unsp spec) [Mass/Vol] 4.0 mmol/L 3.3-5.1 [facility] RBC Auto (Bld) [#/Vol]Ordere d By: Danielle Niño on 06-02-2024 RBC (Bld) [#/Vol] 4.99 10*6/uL 4.6-6.2 [facility] Serum creatinine measurement (mass/volume)Ordered By: Danielle Niño on 06-02-2024 Creatinine [Mass/Vol] 0.96 mg/dL 0.70-1.20 [facility] Serum globulin measurementOr dered By: Danielle Niño on 06-02-2024 Globulin (S) [Mass/Vol] 2.5 g/dL 2.2-4.2 [facility] Serum glucose measurement (m ass/volume)Ordered By: Danielle Niño on 06-02-2024 Glucose [Mass/Vol] 149 mg/dL High 70-99 [facility] Serum or plasma alanine chilel otransferase (ALT) measurementOrdered By: Danielle Niño on 06-02-2024 ALT [Catalytic activity/Vol] 12 U/L <47 [facility] Serum or plasma albumin adore urement (mass/volume)Ordered By: Danielle Niño on 06-02-2024 Albumin [Mass/Vol] 3.5 g/dL 3.4-4.8 [facility] Serum or plasma alkaline aruna sphatase measurementOrdered By: Danielle Niño on 06-02-2024 ALP [Catalytic activity/Vol] 53 U/L 40-129 [facility] Serum or plasma calcium adore urement (mass/volume)Ordered By: Danielle Niño on 06-02-2024 Calcium [Mass/Vol] 8.7 mg/dL 7.6-11.0 [facility] Serum or plasma urea nitroge n measurement (mass/volume)Ordered By: Danielle Niño on 06-02-2024 Urea nitrogen [Mass/Vol] 17 mg/dL 4-19 [facility] Sodium levelOrdered By: Carly Niño on 06-02-2024 Sodium [Moles/Vol] 137 mmol/L 133-145 [facility] Total proteinOrdered By: Pravin Niño on 06-02-2024 Protein [Mass/Vol] 6.0 g/dL 5.9-8.4 [facility] White blood cell (WBC) count Ordered By: Danielle Niño on 06-02-2024 WBC (Bld) [#/Vol] 7.6 10*3/uL 4.4-11.0 [facility] Absolute lymphocyte countOrd ered By: Danielle Niño on 05-05-2024 Lymphocytes Auto (Unsp spec) [#/Vol] 1.75 10*3/uL 0.83-4.51 [facility] Absolute neutrophil countOrd ered By: Danielle Niño on 05-05-2024 Neutrophils (Bld) [#/Vol] 4.3 10*3/uL 2.0-7.7 [facility] Anion gap in Serum or Plasma Ordered By: Danielle Niño on 05-05-2024 Anion gap [Moles/Vol] 10 mmol/L 5-15 [facility] Automated lymphocyte count a s percentage of total leukocytesOrdered By: Danielle Niño on 05-05-2024 Lymphocytes/100 WBC Auto (Unsp spec) 24.7 % - [facility] BUN/creatinine ratioOrdered By: Danielle Niño on 05-05-2024 Urea nitrogen/Creatinine [Mass ratio] 25.1 mg/mg High 10-20 [facility] Basophil percentageOrdered B y: Danielle Niño on 05-05-2024 Basophils/100 WBC (Bld) 0.7 % 0-1 [facility] Carbon dioxide, total [Moles /volume] in Central venous bloodOrdered By: Danielle Niño on 05-05-2024 CO2 [Moles/Vol] 24.1 mmol/L 21.0-32.0 [facility] Chloride assayOrdered By: Karen Niño on 05-05-2024 Chloride [Moles/Vol] 102 mmol/L 98-108 [facility] Eosinophil percentageOrdered By: Danielle Niño on 05-05-2024 Eosinophils/100 WBC (Bld) 2.5 % 0-5 [facility] Erythrocyte distribution wid th (RBC) [Ratio]Ordered By: Danielle Niño on 05-05-2024 Erythrocyte distribution width (RBC) [Entitic vol] 39.3 fL 35.1-43.9 [facility] Erythrocyte distribution wid th ratioOrdered By: Danielle Niño on 05-05-2024 Erythrocyte distribution width (RBC) [Ratio] 12.5 % 11.6-14.6 [facility] Erythrocyte distribution wid th standard deviationOrdered By: Danielle Niño on 05-05-2024 Erythrocyte distribution width (RBC) [Ratio] 39.3 fl 35.1-43.9 [facility] GFR/1.73 sq M.predicted venkata g non-blacks MDRD (S/P/Bld) [Vol rate/Area]Ordered By: Danielle Niño on 05-05-2024 Estimated GFR (MDRD) Non-Af Amer [address] >60 [facility] Comment on above: mL/min/1.73m2 CKD-EP I Creatinine Equation (2020) Glomerular filtration rate ( GFR) estimation/1.73 sq m using serum, plasma, or whole bOrdered By: Danielle Niño on 05-05-2024 GFR/1.73 sq M.predicted among non-blacks MDRD (S/P/Bld) [Vol rate/Area] 77 mL/min/{1.73_m2} >60 [facility] Comment on above: mL/min/1.73m2 CKD-EP I Creatinine Equation (2021) Hematocrit Auto (Bld) [Volum e fraction]Ordered By: Danielle Niño on 05-05-2024 Hematocrit (Bld) [Volume fraction] 41.0 % 40-54 [facility] Hemoglobin measurementOrdere d By: Danielle Niño on 05-05-2024 Hemoglobin (Bld) [Mass/Vol] 14.3 g/dL 13.0-16.5 [facility] Immature granulocytes/100 WB C Auto (Bld)Ordered By: Danielle Niño on 05-05-2024 Immature granulocytes/100 WBC (Bld) 0.300 % 0.0-0.9 [facility] Comment on above: IG% - Immature Granu locytes (promyelocytes, myelocytes and metamyelocytes) > 1% indicates that a LEFT SHIFT is Present. Lymphocytes Auto (Unsp spec) [#/Vol]Ordered By: Danielle Niño on 05-05-2024 Lymphocytes (Bld) [#/Vol] 1.75 10*3/uL 0.83-4.[address] [facility] Lymphocytes/100 WBC Auto (Un sp spec)Ordered By: Danielle Niño on 05-05-2024 Lymphocytes/100 WBC (Bld) 24.7 % 19-41 [facility] MCV (mean corpuscular volume ) determinationOrdered By: Danielle Niño on 05-05-2024 MCV (RBC) [Entitic vol] 86.1 fL 80-94 [facility] Mean corpuscular hemoglobin (MCH) determinationOrdered By: Danielle Niño on 05-05-2024 MCH (RBC) [Entitic mass] 30.0 pg 27.0-32.0 [facility] Mean corpuscular hemoglobin concentration (MCHC) determinationOrdered By: Danielle Niño on 05-05-2024 MCHC (RBC) [Mass/Vol] 34.9 g/dL 32-36 [facility] Mean platelet volume determi nationOrdered By: Danielle Niño on 05-05-2024 Platelet mean volume (Bld) [Entitic vol] 10.0 fL 6.2-12.0 [facility] Monocyte percentageOrdered B y: Danielle Niño on 05-05-2024 Monocytes/100 WBC (Bld) 11.3 % High 0-10 [facility] Neutrophil percentageOrdered By: Danielle Niño on 05-05-2024 Neutrophils/100 WBC (Bld) 60.5 % 47-70 [facility] Nucleated red blood cell per centageOrdered By: Danielle Hakeemjacqui on 05-05-2024 Nucleated RBC/100 WBC (Bld) [Ratio] 0 % 0-5 [facility] Platelet countOrdered By: Karen juan Hakeemshilohstalin on 05-05-2024 Platelets (Bld) [#/Vol] 174 10*3/uL 150-450 [facility] Potassium (Unsp spec) [Mass/ Vol]Ordered By: Karenaustinjuany Hakeemshilohstalin on 05-05-2024 Potassium [Moles/Vol] 4.0 mmol/L 3.3-5.1 [facility] Potassium measurement (mass/ volume)Ordered By: Carlyjuany Hakeemshilohstalin on 05-05-2024 Potassium (Unsp spec) [Mass/Vol] 4.0 mmol/L 3.3-5.1 [facility] RBC Auto (Bld) [#/Vol]Ordere d By: Danielle Niño on 05-05-2024 RBC (Bld) [#/Vol] 4.76 10*6/uL 4.6-6.2 [facility] Serum creatinine measurement (mass/volume)Ordered By: Danielle Niño on 05-05-2024 Creatinine [Mass/Vol] 0.98 mg/dL 0.70-1.20 [facility] Serum glucose measurement (m ass/volume)Ordered By: Karenaustinpenelopeamanda Palacioshilohstalin on 05-05-2024 Glucose [Mass/Vol] 116 mg/dL High 70-99 [facility] Serum or plasma calcium adore urement (mass/volume)Ordered By: Karenaustinjuany Hakeemshilohstalin on 05-05-2024 Calcium [Mass/Vol] 8.2 mg/dL 7.6-11.0 [facility] Serum or plasma urea nitroge n measurement (mass/volume)Ordered By: Carlypenelopeamanda Palacioshilohstalin on 05-05-2024 Urea nitrogen [Mass/Vol] 25 mg/dL High 4-19 [facility] Sodium levelOrdered By: Carly Niño on 05-05-2024 Sodium [Moles/Vol] 137 mmol/L 133-145 [facility] White blood cell (WBC) count Ordered By: Carlyjuany Hakeemshilohstalin on 05-05-2024 WBC (Bld) [#/Vol] 7.1 10*3/uL 4.4-11.0 [facility] Absolute lymphocyte countOrd ered By: Carlyjuany Hakeemshilohstalin on 04-07-2024 Lymphocytes Auto (Unsp spec) [#/Vol] 1.79 10*3/uL 0.83-4.51 [facility] Absolute neutrophil countOrd ered By: Danielle Palacioshilohstalin on 04-07-2024 Neutrophils (Bld) [#/Vol] 3.9 10*3/uL 2.0-7.7 [facility] Automated lymphocyte count a s percentage of total leukocytesOrdered By: Danielle Niño on 04-07-2024 Lymphocytes/100 WBC Auto (Unsp spec) 27.1 % 19-41 [facility] Basophil percentageOrdered B y: Danielle Palacioshilohstalin on 04-07-2024 Basophils/100 WBC (Bld) 0.9 % 0-1 [facility] Blood urea nitrogen (BUN)/cr eatinine ratioOrdered By: Danielle Niño on 04-07-2024 Urea nitrogen/Creatinine [Mass ratio] 19.8 mg/mg 10-20 [facility] Carbon dioxide measurementOr dered By: Danielle Niño on 04-07-2024 CO2 [Moles/Vol] 28.0 mmol/L 21.0-32.0 [facility] Chloride measurementOrdered By: Danielle Niño on 04-07-2024 Chloride [Moles/Vol] 104 mmol/L 98-107 [facility] Eosinophil percentageOrdered By: Danielle Palacioshilohstalin on 04-07-2024 Eosinophils/100 WBC (Bld) 2.3 % 0-5 [facility] Erythrocyte distribution wid th (RBC) [Ratio]Ordered By: Danielle Niño on 04-07-2024 Erythrocyte distribution width (RBC) [Entitic vol] 38.6 fL 35.1-43.9 [facility] Erythrocyte distribution wid th ratioOrdered By: Karenaustinpenelopeamanda Palacioshilohstalin on 04-07-2024 Erythrocyte distribution width (RBC) [Ratio] 12.1 % 11.6-14.6 [facility] Erythrocyte distribution wid th standard deviationOrdered By: Danielle Palacioshilohstalin on 04-07-2024 Erythrocyte distribution width (RBC) [Ratio] 38.6 fl 35.1-43.9 [facility] Estimated glomerular filtrat ion rate (GFR) AmericanOrdered By: Danielle Niño on 04-07-2024 Estimated GFR (MDRD) Amer 81 mL/min >60 [facility] Comment on above: GFR Calc Glomerular filtration rate ( GFR) estimationOrdered By: Danielle Niño on 04-07-2024 Estimated GFR (MDRD) Non-Af Amer 67 mL/min >60 [facility] Comment on above: Non- GFR Calc GFR/1.73 sq M.predicted among non-blacks MDRD (S/P/Bld) [Vol rate/Area] 67 mL/min/{1.73_m2} >60 [facility] Comment on above: Non- GFR Calc Glucose measurementOrdered B y: Danielle Niño on 04-07-2024 Glucose [Mass/Vol] 117 mg/dL High 74-106 [facility] Comment on above: Fasting Glucose resu lt from 100 to 125 mg/dL suggests IMPAIRED HOMEOSTASIS per A.D.A. criteria. Hematocrit Auto (Bld) [Volum e fraction]Ordered By: Danielle Niño on 04-07-2024 Hematocrit (Bld) [Volume fraction] 42.7 % 40-54 [facility] Hemoglobin measurementOrdere d By: Carlypenelopeamanda Niño on 04-07-2024 Hemoglobin (Bld) [Mass/Vol] 13.9 g/dL 13.0-16.5 [facility] Immature granulocytes/100 WB C Auto (Bld)Ordered By: Danielle Niño on 02-20-2025 Immature granulocytes/100 WBC (Bld) 0.500 % 0.0-0.9 [facility] Comment on above: IG% - Immature Granu locytes (promyelocytes, myelocytes and metamyelocytes) > 1% indicates that a LEFT SHIFT is Present. Lymphocytes Auto (Unsp spec) [#/Vol]Ordered By: Danielle Niño on 04-07-2024 Lymphocytes (Bld) [#/Vol] 1.79 10*3/uL 0.83-4.[address] [facility] Lymphocytes/100 WBC Auto (Un sp spec)Ordered By: Danielle Niño on 04-07-2024 Lymphocytes/100 WBC (Bld) 27.1 % 19-41 [facility] MCV (mean corpuscular volume ) determinationOrdered By: Danielle Niño on 04-07-2024 MCV (RBC) [Entitic vol] 88.2 fL 80-94 [facility] Mean corpuscular hemoglobin (MCH) determinationOrdered By: Danielle Niño on 04-07-2024 MCH (RBC) [Entitic mass] 28.7 pg 27.0-32.0 [facility] Mean corpuscular hemoglobin concentration (MCHC) determinationOrdered By: Danielle Niño on 04-07-2024 MCHC (RBC) [Mass/Vol] 32.6 g/dL 32-36 [facility] Mean platelet volume determi nationOrdered By: Danielle Niño on 04-07-2024 Platelet mean volume (Bld) [Entitic vol] 10.4 fL 6.2-12.0 [facility] Monocyte percentageOrdered B y: Danielle Niño on 04-07-2024 Monocytes/100 WBC (Bld) 11.0 % High 0-10 [facility] Neutrophil percentageOrdered By: Danielle Niño on 04-07-2024 Neutrophils/100 WBC (Bld) 58.2 % 47-70 [facility] Nucleated red blood cell per centageOrdered By: Danielle Niño on 04-07-2024 Nucleated RBC/100 WBC (Bld) [Ratio] 0 % 0-5 [facility] Platelet countOrdered By: Karen Mirandastalin on 04-07-2024 Platelets (Bld) [#/Vol] 228 10*3/uL 150-450 [facility] Potassium measurementOrdered By: Karenaustinpenelopeamanda Palaciojacqui on 04-07-2024 Potassium [Moles/Vol] 4.0 mmol/L 3.5-5.1 [facility] RBC Auto (Bld) [#/Vol]Ordere d By: Carlyjuany Hakeemjacqui on 04-07-2024 RBC (Bld) [#/Vol] 4.84 10*6/uL 4.6-6.2 [facility] Serum anion gap measurementO rdered By: Carlypenelopeamanda Palacioshilohstalin on 04-07-2024 Anion gap [Moles/Vol] 6 mmol/L 5-15 [facility] Serum or plasma calcium adore urement (mass/volume)Ordered By: Carlypenelopeamanda Palacioshilohstalin on 04-07-2024 Calcium [Mass/Vol] 8.8 mg/dL 8.5-10.1 [facility] Serum or plasma creatinine m easurement (mass/volume)Ordered By: Karenaustinpenelopeamanda Palacioshilohstalin on 04-07-2024 Creatinine [Mass/Vol] 1.11 mg/dL 0.70-1.30 [facility] Comment on above: The validity of the calculated GFR & GFRAA in patients over 70 years has not been determined. Clinical correlation is essential. Serum or plasma urea nitroge n measurement (mass/volume)Ordered By: Karenjuan Palacioshilohstalin on 04-07-2024 Urea nitrogen [Mass/Vol] 22 mg/dL High 7-18 [facility] Sodium levelOrdered By: Karenaustin juany Hakeemshilohstalin on 04-07-2024 Sodium [Moles/Vol] 138 mmol/L 136-145 [facility] White blood cell (WBC) count Ordered By: Karenaustinjuany Hakeemshilohstalin on 04-07-2024 WBC (Bld) [#/Vol] 6.6 10*3/uL 4.4-11.0 [facility] Absolute lymphocyte countOrd ered By: Danielle Hakeemshilohstalin on 03-03-2024 Lymphocytes Auto (Unsp spec) [#/Vol] 2.15 10*3/uL 0.83-4.51 [facility] Absolute neutrophil countOrd ered By: Danielle Niño on 03-03-2024 Neutrophils (Bld) [#/Vol] 4.2 10*3/uL 2.0-7.7 [facility] Automated lymphocyte count a s percentage of total leukocytesOrdered By: Danielle Niño on 03-03-2024 Lymphocytes/100 WBC Auto (Unsp spec) 28.7 % 19-41 [facility] Basophil percentageOrdered B y: Danielle Niño on 03-03-2024 Basophils/100 WBC (Bld) 0.8 % 0-1 [facility] Bilirubin directOrdered By: Danielle Niño on 03-03-2024 Bilirubin.direct [Mass/Vol] 0.15 mg/dL 0.00-0.30 [facility] Bilirubin, totalOrdered By: Danielle Niño on 03-03-2024 Bilirubin [Mass/Vol] 0.50 mg/dL 0.20-1.00 [facility] Comment on above: For patients on eltr ombopag therapy, use of Dimension Sper[place] TBIL is not recommended. Blood urea nitrogen (BUN)/cr eatinine ratioOrdered By: Danielle Niño on 03-03-2024 Urea nitrogen/Creatinine [Mass ratio] 18.5 mg/mg 10-20 [facility] Carbon dioxide measurementOr dered By: Danielle Niño on 03-03-2024 CO2 [Moles/Vol] 30.0 mmol/L 21.0-32.0 [facility] Chloride measurementOrdered By: Danielle Niño on 03-03-2024 Chloride [Moles/Vol] 105 mmol/L 98-107 [facility] Eosinophil percentageOrdered By: Danielle Niño on 03-03-2024 Eosinophils/100 WBC (Bld) 3.2 % 0-5 [facility] Erythrocyte distribution wid th (RBC) [Ratio]Ordered By: Danielle Niño on 03-03-2024 Erythrocyte distribution width (RBC) [Entitic vol] 40.5 fL 35.1-43.9 [facility] Erythrocyte distribution wid th ratioOrdered By: Danielle Niño on 03-03-2024 Erythrocyte distribution width (RBC) [Ratio] 12.3 % 11.6-14.6 [facility] Erythrocyte distribution wid th standard deviationOrdered By: Danielle Niño on 03-03-2024 Erythrocyte distribution width (RBC) [Ratio] 40.5 fl 35.1-43.9 [facility] Estimated glomerular filtrat ion rate (GFR) AmericanOrdered By: Danielle Niño on 03-03-2024 Estimated GFR (MDRD) Amer 84 mL/min >60 [facility] Comment on above: GFR Calc Glomerular filtration rate ( GFR) estimationOrdered By: Danielle Niño on 03-03-2024 Estimated GFR (MDRD) Non-Af Amer 69 mL/min >60 [facility] Comment on above: Non- GFR Calc GFR/1.73 sq M.predicted among non-blacks MDRD (S/P/Bld) [Vol rate/Area] 69 mL/min/{1.73_m2} >60 [facility] Comment on above: Non- GFR Calc Glucose measurementOrdered B y: Danielle Niño on 03-03-2024 Glucose [Mass/Vol] 135 mg/dL High 74-106 [facility] Comment on above: Fasting Glucose resu lt greater than or equal to 126 mg/dL suggests DIABETES MELLITUS per A.D.A. criteria. Hematocrit Auto (Bld) [Volum e fraction]Ordered By: Danielle Niño on 03-03-2024 Hematocrit (Bld) [Volume fraction] 42.8 % 40-54 [facility] Hemoglobin A1c percentageOrd ered By: Danielle Niño on 03-03-2024 HbA1c (Bld) [Mass fraction] 6.4 % High 3.8-5.6 [facility] Comment on above: Normal < 5.7 % Predi abetic 5.7 - 6.4 % Diabetic >or= 6.5 % Please note range changes. Hemoglobin measurementOrdere d By: Danielle Niño on 03-03-2024 Hemoglobin (Bld) [Mass/Vol] 14.2 g/dL 13.0-16.5 [facility] Immature granulocytes/100 WB C Auto (Bld)Ordered By: Danielle Niño on 03-03-2024 Immature granulocytes/100 WBC (Bld) 0.400 % 0.0-0.9 [facility] Comment on above: IG% - Immature Granu locytes (promyelocytes, myelocytes and metamyelocytes) > 1% indicates that a LEFT SHIFT is Present. Laboratory - Chemistry and C hemistry - challengeOrdered By: Danielle Niño on 03-03-2024 AST [Catalytic activity/Vol] 17 U/L 15-37 [facility] Lymphocytes Auto (Unsp spec) [#/Vol]Ordered By: Danielle Niño on 03-03-2024 Lymphocytes (Bld) [#/Vol] 2.15 10*3/uL 0.83-4.[address] [facility] Lymphocytes/100 WBC Auto (Un sp spec)Ordered By: Danielle Niño on 03-03-2024 Lymphocytes/100 WBC (Bld) 28.7 % 19-41 [facility] MCV (mean corpuscular volume ) determinationOrdered By: Danielle Niño on 03-03-2024 MCV (RBC) [Entitic vol] 89.5 fL 80-94 [facility] Mean corpuscular hemoglobin (MCH) determinationOrdered By: Danielle Niño on 03-03-2024 MCH (RBC) [Entitic mass] 29.7 pg 27.0-32.0 [facility] Mean corpuscular hemoglobin concentration (MCHC) determinationOrdered By: Danielle Niño on 03-03-2024 MCHC (RBC) [Mass/Vol] 33.2 g/dL 32-36 [facility] Mean platelet volume determi nationOrdered By: Danielle Niño on 03-03-2024 Platelet mean volume (Bld) [Entitic vol] 10.0 fL 6.2-12.0 [facility] Monocyte percentageOrdered B y: Danielle Niño on 03-03-2024 Monocytes/100 WBC (Bld) 10.3 % High 0-10 [facility] Neutrophil percentageOrdered By: Danielle Niño on 03-03-2024 Neutrophils/100 WBC (Bld) 56.6 % 47-70 [facility] Nucleated red blood cell per centageOrdered By: Danielle Niño on 03-03-2024 Nucleated RBC/100 WBC (Bld) [Ratio] 0 % 0-5 [facility] Platelet countOrdered By: Karen Niño on 03-03-2024 Platelets (Bld) [#/Vol] 199 10*3/uL 150-450 [facility] Potassium measurementOrdered By: Danielle Niño on 03-03-2024 Potassium [Moles/Vol] 4.3 mmol/L 3.5-5.1 [facility] RBC Auto (Bld) [#/Vol]Ordere d By: Danielle Niño on 03-03-2024 RBC (Bld) [#/Vol] 4.78 10*6/uL 4.6-6.2 [facility] Serum anion gap measurementO rdered By: Danielle Niño on 03-03-2024 Anion gap [Moles/Vol] 2 mmol/L Low 5-15 [facility] Serum globulin measurementOr dered By: Danielle Niño on 03-03-2024 Globulin (S) [Mass/Vol] 2.9 g/dL 2.2-4.2 [facility] Serum or plasma alanine chilel otransferase (ALT) measurementOrdered By: Danielle Niño on 03-03-2024 ALT [Catalytic activity/Vol] 20 U/L 16-61 [facility] Serum or plasma albumin adore urement (mass/volume)Ordered By: Danielle Niño on 03-03-2024 Albumin [Mass/Vol] 3.2 g/dL 3.2-5.0 [facility] Serum or plasma alkaline aruna sphatase measurementOrdered By: Danielle Niño on 03-03-2024 ALP [Catalytic activity/Vol] 45 U/L 45-117 [facility] Serum or plasma calcium adore urement (mass/volume)Ordered By: Danielle Niño on 03-03-2024 Calcium [Mass/Vol] 8.7 mg/dL 8.5-10.1 [facility] Serum or plasma creatinine m easurement (mass/volume)Ordered By: Danielle Niño on 03-03-2024 Creatinine [Mass/Vol] 1.08 mg/dL 0.70-1.30 [facility] Comment on above: The validity of the calculated GFR & GFRAA in patients over 70 years has not been determined. Clinical correlation is essential. Serum or plasma urea nitroge n measurement (mass/volume)Ordered By: Danielle Niño on 03-03-2024 Urea nitrogen [Mass/Vol] 20 mg/dL High 7-18 [facility] Sodium levelOrdered By: Carly chesterlindastalin Niño on 03-03-2024 Sodium [Moles/Vol] 138 mmol/L 136-145 [facility] Total proteinOrdered By: Pravin Niño on 03-03-2024 Protein [Mass/Vol] 6.1 g/dL Low 6.4-8.2 [facility] White blood cell (WBC) count Ordered By: Danielle Niño on 03-03-2024 WBC (Bld) [#/Vol] 7.5 10*3/uL 4.4-11.0 [facility] Absolute neutrophil countOrd ered By: Danielle Niño on 02-04-2024 Neutrophils (Bld) [#/Vol] 3.4 10*3/uL 2.0-7.7 [facility] Basophil percentageOrdered B y: Danielle Niño on 02-04-2024 Basophils/100 WBC (Bld) 1.1 % High 0-1 [facility] Blood urea nitrogen (BUN)/cr eatinine ratioOrdered By: Danielle Niño on 02-04-2024 Urea nitrogen/Creatinine [Mass ratio] 19.3 mg/mg 10-20 [facility] Carbon dioxide measurementOr dered By: Danielle Niño on 02-04-2024 CO2 [Moles/Vol] 28.0 mmol/L 21.0-32.0 [facility] Chloride measurementOrdered By: Danielle Niño on 02-04-2024 Chloride [Moles/Vol] 107 mmol/L 98-107 [facility] Eosinophil percentageOrdered By: Danielle Niño on 02-04-2024 Eosinophils/100 WBC (Bld) 4.7 % 0-5 [facility] Erythrocyte distribution wid th (RBC) [Ratio]Ordered By: Danielle Niño on 02-04-2024 Erythrocyte distribution width (RBC) [Entitic vol] 42.7 fL 35.1-43.9 [facility] Erythrocyte distribution wid th ratioOrdered By: Danielle Niño on 02-04-2024 Erythrocyte distribution width (RBC) [Ratio] 12.9 % 11.6-14.6 [facility] Estimated glomerular filtrat ion rate (GFR) AmericanOrdered By: Danielle Niño on 02-04-2024 Estimated GFR (MDRD) Amer 83 mL/min >60 [facility] Comment on above: GFR Calc Glomerular filtration rate ( GFR) estimationOrdered By: Karenjuan Palacioshilohstalin on 02-04-2024 Estimated GFR (MDRD) Non-Af Amer 69 mL/min >60 [facility] Comment on above: Non- GFR Calc Glucose measurementOrdered B y: Danielle Niño on 02-04-2024 Glucose [Mass/Vol] 124 mg/dL High 74-106 [facility] Comment on above: Fasting Glucose resu lt from 100 to 125 mg/dL suggests IMPAIRED HOMEOSTASIS per A.D.A. criteria. Hematocrit Auto (Bld) [Volum e fraction]Ordered By: Danielle Palacioshilohstalin on 02-04-2024 Hematocrit (Bld) [Volume fraction] 38.0 % Low 40-54 [facility] Hemoglobin measurementOrdere d By: Danielle Niño on 02-04-2024 Hemoglobin (Bld) [Mass/Vol] 12.6 g/dL Low 13.0-16.5 [facility] Immature granulocytes/100 WB C Auto (Bld)Ordered By: Karenaustinpenelopeamanda Palacioshilohstalin on 02-04-2024 Immature granulocytes/100 WBC (Bld) 0.300 % 0.0-0.9 [facility] Comment on above: IG% - Immature Granu locytes (promyelocytes, myelocytes and metamyelocytes) > 1% indicates that a LEFT SHIFT is Present. Lymphocytes Auto (Unsp spec) [#/Vol]Ordered By: Danielle Niño on 02-04-2024 Lymphocytes (Bld) [#/Vol] 1.85 10*3/uL 0.83-4.[address] [facility] Lymphocytes/100 WBC Auto (Un sp spec)Ordered By: Danielle Niño on 02-04-2024 Lymphocytes/100 WBC (Bld) 29.2 % 19-41 [facility] MCV (mean corpuscular volume ) determinationOrdered By: Danielle Niño on 02-04-2024 MCV (RBC) [Entitic vol] 89.6 fL 80-94 [facility] Mean corpuscular hemoglobin (MCH) determinationOrdered By: Carlyauburnamanda Niño on 02-04-2024 MCH (RBC) [Entitic mass] 29.7 pg 27.0-32.0 [facility] Mean corpuscular hemoglobin concentration (MCHC) determinationOrdered By: [facility] Hospitalam[facility] on 02-04-2024 MCHC (RBC) [Mass/Vol] 33.2 g/dL 32-36 [facility] Mean platelet volume determi nationOrdered By: Danielle Niño on 02-04-2024 Platelet mean volume (Bld) [Entitic vol] 9.8 fL 6.2-12.0 [facility] Monocyte percentageOrdered B y: Danielle Niño on 02-04-2024 Monocytes/100 WBC (Bld) 11.4 % High 0-10 [facility] Neutrophil percentageOrdered By: juan Niño on 02-04-2024 Neutrophils/100 WBC (Bld) 53.3 % 47-70 [facility] Nucleated red blood cell per centageOrdered By: Danielle Niño on 02-04-2024 Nucleated RBC/100 WBC (Bld) [Ratio] 0 % 0-5 [facility] Platelet countOrdered By: Karen Niño on 02-04-2024 Platelets (Bld) [#/Vol] 180 10*3/uL 150-450 [facility] Potassium measurementOrdered By: Karenaustinpenelopeamanda Palacioshilohstalin on 02-04-2024 Potassium [Moles/Vol] 4.2 mmol/L 3.5-5.1 [facility] RBC Auto (Bld) [#/Vol]Ordere d By: Danielle Hakeemjacqui on 02-04-2024 RBC (Bld) [#/Vol] 4.24 10*6/uL Low 4.6-6.2 [facility] Serum anion gap measurementO rdered By: Danielle Hakeemjacqui on 02-04-2024 Anion gap [Moles/Vol] 3 mmol/L Low 5-15 [facility] Serum or plasma calcium adore urement (mass/volume)Ordered By: Karenaustinpenelopeamanda Palacioshilohstalin on 02-04-2024 Calcium [Mass/Vol] 8.1 mg/dL Low 8.5-10.1 [facility] Serum or plasma creatinine m easurement (mass/volume)Ordered By: Karenaustinpenelopeamanda Palacioshilohstalin on 02-04-2024 Creatinine [Mass/Vol] 1.09 mg/dL 0.70-1.30 [facility] Comment on above: The validity of the calculated GFR & GFRAA in patients over 70 years has not been determined. Clinical correlation is essential. Serum or plasma urea nitroge n measurement (mass/volume)Ordered By: Karenjuan Palacioshilohstalin on 02-04-2024 Urea nitrogen [Mass/Vol] 21 mg/dL High 7-18 [facility] Sodium levelOrdered By: Carly juany Hakeemshilohstalin on 02-04-2024 Sodium [Moles/Vol] 138 mmol/L 136-145 [facility] White blood cell (WBC) count Ordered By: Karenaustinpenelopeamanda Palacioshilohstalin on 02-04-2024 WBC (Bld) [#/Vol] 6.3 10*3/uL 4.4-11.0 [facility] Absolute lymphocyte countOrd ered By: Chele Leyva on 04-21-2023 Lymphocytes Auto (Unsp spec) [#/Vol] 1.74 10*3/uL 0.83-4.51 [facility] Automated lymphocyte count a s percentage of total leukocytesOrdered By: Chele Leyva on 04-21-2023 Lymphocytes/100 WBC Auto (Unsp spec) 25.9 % 19-41 [facility] Basophil percentageOrdered B y: Chele Leyva on 04-21-2023 Basophils/100 WBC (Bld) 0.9 % 0-1 [facility] Bilirubin [Mass/Vol] 0.70 mg/dL 0.20-1.00 [facility] Comment on above: For patients on eltr ombopag therapy, use of Dimension [place] TBIL is not recommended. Chloride [Moles/Vol] 106 mmol/L 98-107 [facility] Cholesterol [Mass/Vol] 195 mg/dL <200 [facility] Comment on above: <200 mg/dL Desirable 200-240 mg/dL Borderline >240 mg/dL High Risk Eosinophils/100 WBC (Bld) 3.0 % 0-5 [facility] Glucose [Mass/Vol] 156 mg/dL 74-106 [facility] Comment on above: Fasting Glucose resu lt greater than or equal to 126 mg/dL suggests DIABETES MELLITUS per A.D.A. criteria. Hemoglobin (Bld) [Mass/Vol] 14.5 g/dL 13.0-16.5 [facility] Monocytes/100 WBC (Bld) 8.9 % 0-10 [facility] Neutrophils (Bld) [#/Vol] 4.1 10*3/uL 2.0-7.7 [facility] Neutrophils/100 WBC (Bld) 60.9 % 47-70 [facility] Potassium [Moles/Vol] 3.9 mmol/L 3.5-5.1 [facility] Protein [Mass/Vol] 6.3 g/dL 6.4-8.2 [facility] Sodium [Moles/Vol] 141 mmol/L 136-145 [facility] Triglyceride [Mass/Vol] 112 mg/dL <199 [facility] Comment on above: The drugs N-Acetylcy steine and Metamizole may falsely depress this assay.Serum Triglycerides Reference Interval Normal <150 mg/dL Borderline high 150 - 199 mg/dL High 200 - 499 mg/dL Very High > or = 500 mg/dL WBC (Bld) [#/Vol] 6.7 10*3/uL 4.4-11.0 [facility] Determination of erythrocyte mean corpuscular volume (MCV)Ordered By: Chele Leyva on 04-21-2023 MCV (RBC) [Entitic vol] 87.1 fL 80-94 [facility] Erythrocyte distribution wid th ratioOrdered By: Chele Leyva on 04-21-2023 Erythrocyte distribution width (RBC) [Ratio] 13.8 % 11.6-14.6 [facility] Erythrocyte distribution wid th standard deviationOrdered By: Chele Leyva on 04-21-2023 Erythrocyte distribution width (RBC) [Entitic vol] 44.2 fL 35.1-43.9 [facility] Hematocrit Auto (Bld) [Volum e fraction]Ordered By: Chele Leyva on 04-21-2023 Hematocrit (Bld) [Volume fraction] 45.3 % 40-54 [facility] Immature granulocytes/100 WB C Auto (Bld)Ordered By: Chele Leyva on 04-21-2023 Immature granulocytes/100 WBC (Bld) 0.400 % 0.0-0.9 [facility] Comment on above: IG% - Immature Granu locytes (promyelocytes, myelocytes and metamyelocytes) > 1% indicates that a LEFT SHIFT is Present. Laboratory - Chemistry and C hemistry - challengeOrdered By: Chele Leyva on 04-21-2023 Albumin/Globulin [Mass ratio] 1.1 {ratio} 0.9-2.4 [facility] ALP [Catalytic activity/Vol] 59 U/L 45-117 [facility] ALT [Catalytic activity/Vol] 28 U/L 16-61 [facility] Cholesterol in HDL [Mass/Vol] 42 mg/dL >40 [facility] Comment on above: The drugs N-Acetylcy steine and Metamizole may falsely depress this assay. Reference Range HDL <40 mg/dL Low HDL Cholesterol HDL >or= 60 mg/dL High HDL Cholesterol Cholesterol in LDL [Mass/Vol] 131 mg/dL 0-130 [facility] CO2 [Moles/Vol] 29.0 mmol/L 21.0-32.0 [facility] Globulin (S) [Mass/Vol] 3.0 g/dL 2.2-4.2 [facility] Urea nitrogen/Creatinine [Mass ratio] 25.2 mg/mg 10-20 [facility] Laboratory - Hematology and Cell countsOrdered By: Chele Leyva on 04-21-2023 MCH (RBC) [Entitic mass] 27.9 pg 27.0-32.0 [facility] MCHC (RBC) [Mass/Vol] 32.0 g/dL 32-36 [facility] Nucleated RBC/100 WBC (Bld) [Ratio] 0 % 0-5 [facility] Platelet mean volume (Bld) [Entitic vol] 9.8 fL 6.2-12.0 [facility] Platelets (Bld) [#/Vol] 233 10*3/uL 150-450 [facility] No Panel InformationOrdered By: Chele Leyva on 04-21-2023 Estimated GFR (MDRD) Amer 89 mL/min >60 [facility] Comment on above: GFR Calc Estimated GFR (MDRD) Non-Af Amer 74 mL/min >60 [facility] Comment on above: Non- GFR Calc VLDL Cholesterol 22 mg/dL 5-40 [facility] RBC Auto (Bld) [#/Vol]Ordere d By: Chele Leyva on 04-21-2023 RBC (Bld) [#/Vol] 5.20 10*6/uL 4.6-6.2 [facility] Serum or plasma calcium adore urement (mass/volume)Ordered By: Chele Leyva on 04-21-2023 Calcium [Mass/Vol] 8.7 mg/dL 8.5-10.1 [facility] Serum or plasma creatinine m easurement (mass/volume)Ordered By: Chele Leyva on 04-21-2023 Creatinine [Mass/Vol] 1.03 mg/dL 0.70-1.30 [facility] Comment on above: The validity of the calculated GFR & GFRAA in patients over 70 years has not been determined. Clinical correlation is essential. Serum or plasma urea nitroge n measurement (mass/volume)Ordered By: Chele Leyva on 04-21-2023 Urea nitrogen [Mass/Vol] 26 mg/dL 7-18 [facility] Thin prep Papanicolaou smear with manual screeningOrdered By: Chele Leyva on 04-21-2023 Thin prep Papanicolaou smear with manual screening 3.3 g/dL 3.2-5.0 [facility] Thin prep Papanicolaou smear with manual screening 22 U/L 15-37 [facility] Thin prep Papanicolaou smear with manual screening 6 5-15 [facility] Whole blood hemoglobin A1c/t otal hemoglobin ratio (mass fraction)Ordered By: Chele Leyva on 04-21-2023 HbA1c (Bld) [Mass fraction] 6.9 % 3.8-5.6 [facility] Comment on above: Normal < 5.7 % Predi abetic 5.7 - 6.4 % Diabetic >or= 6.5 % Please note range changes. Basophil percentageOrdered B y: Chele Leyva on 10-14-2022 Cholesterol [Mass/Vol] 208 mg/dL <200 [facility] Comment on above: <200 mg/dL Desirable 200-240 mg/dL Borderline >240 mg/dL High Risk Triglyceride [Mass/Vol] 82 mg/dL <199 [facility] Comment on above: The drugs N-Acetylcy steine and Metamizole may falsely depress this assay.Serum Triglycerides Reference Interval Normal <150 mg/dL Borderline high 150 - 199 mg/dL High 200 - 499 mg/dL Very High > or = 500 mg/dL Serum or plasma cholesterol in HDL measurement (mass/volume)Ordered By: Chele Leyva on 10-14-2022 Cholesterol in HDL [Mass/Vol] 46 mg/dL >40 [facility] Comment on above: The drugs N-Acetylcy steine and Metamizole may falsely depress this assay. Reference Range HDL <40 mg/dL Low HDL Cholesterol HDL >or= 60 mg/dL High HDL Cholesterol Serum or plasma cholesterol in VLDL measurement (mass/volume)Ordered By: Chele Leyva on 10-14-2022 Cholesterol in VLDL [Mass/Vol] 16 mg/dL 5-40 [facility] Serum or plasma low density lipoprotein (LDL) cholesterol measurement (mass/volume)Ordered By: Chele Leyva on 10-14-2022 Cholesterol in LDL [Mass/Vol] 146 mg/dL 0-130 [facility] Whole blood hemoglobin A1c/t otal hemoglobin ratio (mass fraction)Ordered By: Chele Leyva on 10-14-2022 HbA1c (Bld) [Mass fraction] 6.9 % 3.8-5.6 [facility] Comment on above: Normal < 5.7 % Predi abetic 5.7 - 6.4 % Diabetic >or= 6.5 % Please note range changes. Laboratory - Chemistry and C hemistry - challengeOrdered By: Chele Leyva on 07-22-2022 Cobalamin (Vitamin B12) [Mass/Vol] 614 pg/mL 211-911 [facility] No Panel InformationOrdered By: Chele Leyva on 07-22-2022 Thyroid Stimulating Hormone (TSH) 1.35 uIU/mL 0.358-3.74 [facility] Absolute lymphocyte countOrd ered By: Dr. Leyva on 04-03-2022 Lymphocytes Auto (Unsp spec) [#/Vol] 1.79 10*3/uL 0.83-4.51 [facility] Basophil percentageOrdered B y: Dr. Leyva on 04-03-2022 Basophils/100 WBC (Bld) 0.7 % 0-1 [facility] Bilirubin [Mass/Vol] 0.80 mg/dL 0.20-1.00 [facility] Comment on above: For patients on eltr ombopag therapy, use of Dimension Sperry TBIL is not recommended. Chloride [Moles/Vol] 104 mmol/L 98-107 [facility] Cholesterol [Mass/Vol] 204 mg/dL <200 [facility] Comment on above: <200 mg/dL Desirable 200-240 mg/dL Borderline >240 mg/dL High Risk Eosinophils/100 WBC (Bld) 1.3 % 0-5 [facility] Glucose [Mass/Vol] 144 mg/dL 74-106 [facility] Comment on above: Fasting Glucose resu lt greater than or equal to 126 mg/dL suggests DIABETES MELLITUS per A.D.A. criteria. Neutrophils (Bld) [#/Vol] 4.3 10*3/uL 2.0-7.7 [facility] Neutrophils/100 WBC (Bld) 63.8 % 47-70 [facility] Potassium [Moles/Vol] 4.1 mmol/L 3.5-5.1 [facility] Protein [Mass/Vol] 6.9 g/dL 6.4-8.2 [facility] Sodium [Moles/Vol] 139 mmol/L 136-145 [facility] Triglyceride [Mass/Vol] 119 mg/dL <199 [facility] Comment on above: The drugs N-Acetylcy steine and Metamizole may falsely depress this assay.Serum Triglycerides Reference Interval Normal <150 mg/dL Borderline high 150 - 199 mg/dL High 200 - 499 mg/dL Very High > or = 500 mg/dL WBC (Bld) [#/Vol] 6.8 10*3/uL 4.4-11.0 [facility] Blood erythrocytes count (nu mber/volume)Ordered By: Dr. Leyva on 04-03-2022 RBC (Bld) [#/Vol] 5.49 10*6/uL 4.6-6.2 [facility] Blood hemoglobin measurement (mass/volume)Ordered By: Dr. Leyva on 04-03-2022 Hemoglobin (Bld) [Mass/Vol] 15.6 g/dL 13.0-16.5 [facility] Blood lymphocytes/100 leukoc ytesOrdered By: Dr. Leyva on 04-03-2022 Lymphocytes/100 WBC (Bld) 26.3 % 19-41 [facility] Blood monocytes/100 leukocyt esOrdered By: Dr. Leyva on 04-03-2022 Monocytes/100 WBC (Bld) 7.8 % 0-10 [facility] Blood platelet mean volumeOr dered By: Dr. Leyva on 04-03-2022 Platelet mean volume (Bld) [Entitic vol] 10.0 fL 6.2-12.0 [facility] Determination of erythrocyte mean corpuscular volume (MCV)Ordered By: Dr. Leyva on 04-03-2022 MCV (RBC) [Entitic vol] 86.2 fL 80-94 [facility] Hematocrit Auto (Bld) [Volum e fraction]Ordered By: Dr. Leyva on 04-03-2022 Hematocrit (Bld) [Volume fraction] 47.3 % 40-54 [facility] Laboratory - Chemistry and C hemistry - challengeOrdered By: Dr. Leyva on 04-03-2022 ALP [Catalytic activity/Vol] 58 U/L 45-117 [facility] ALT [Catalytic activity/Vol] 42 U/L 16-61 [facility] CO2 [Moles/Vol] 27.0 mmol/L 21.0-32.0 [facility] Globulin (S) [Mass/Vol] 3.3 g/dL 2.2-4.2 [facility] Urea nitrogen/Creatinine [Mass ratio] 21.5 mg/mg 10-20 [facility] Laboratory - Hematology and Cell countsOrdered By: Dr. Leyva on 04-03-2022 Erythrocyte distribution width (RBC) [Entitic vol] 42.7 fL 35.1-43.9 [facility] Erythrocyte distribution width (RBC) [Ratio] 13.6 % 11.6-14.6 [facility] Immature granulocytes/100 WBC (Bld) 0.100 % 0.0-0.9 [facility] Comment on above: IG% - Immature Granu locytes (promyelocytes, myelocytes and metamyelocytes) > 1% indicates that a LEFT SHIFT is Present. MCH (RBC) [Entitic mass] 28.4 pg 27.0-32.0 [facility] Nucleated RBC/100 WBC (Bld) [Ratio] 0 % 0-5 [facility] MCHC Auto (RBC) [Mass/Vol]Or dered By: Dr. Leyva on 04-03-2022 MCHC (RBC) [Mass/Vol] 33.0 g/dL 32-36 [facility] No Panel InformationOrdered By: Dr. Leyva on 04-03-2022 Estimated GFR (MDRD) Amer 85 mL/min >60 [facility] Comment on above: GFR Calc Estimated GFR (MDRD) Non-Af Amer 71 mL/min >60 [facility] Comment on above: Non- GFR Calc Prostate Specific Antigen Screen 2.31 ng/mL 0.00-4.00 [facility] Comment on above: This test was perfor med using the TPSA assay method for the[employer] Water chemistry system. Values obtained with differentassay methods cannot be used interchangably.When changing PSA assays in the course of monitoring apatient, additional sequential testing should be carriedout to confirm baseline values. Urine Microalbumin/Creatinine Ratio 37.9 mg/g CRE <30 [facility] Platelets bldOrdered By: Dr. Leyva on 04-03-2022 Platelets (Bld) [#/Vol] 226 10*3/uL 150-450 [facility] Serum or plasma albumin adore urement (mass/volume)Ordered By: Dr. Leyva on 04-03-2022 Albumin [Mass/Vol] 3.6 g/dL 3.2-5.0 [facility] Serum or plasma albumin/glob ulin mass ratioOrdered By: Dr. Leyva on 04-03-2022 Albumin/Globulin [Mass ratio] 1.1 {ratio} 0.9-2.4 [facility] Serum or plasma calcium adore urement (mass/volume)Ordered By: Dr. Leyva on 04-03-2022 Calcium [Mass/Vol] 9.0 mg/dL 8.5-10.1 [facility] Serum or plasma cholesterol in HDL measurement (mass/volume)Ordered By: Dr. Leyva on 04-03-2022 Cholesterol in HDL [Mass/Vol] 41 mg/dL >40 [facility] Comment on above: The drugs N-Acetylcy steine and Metamizole may falsely depress this assay. Reference Range HDL <40 mg/dL Low HDL Cholesterol HDL >or= 60 mg/dL High HDL Cholesterol Serum or plasma cholesterol in VLDL measurement (mass/volume)Ordered By: Dr. Leyva on 04-03-2022 Cholesterol in VLDL [Mass/Vol] 24 mg/dL 5-40 [facility] Serum or plasma creatinine m easurement (mass/volume)Ordered By: Dr. Leyva on 04-03-2022 Creatinine [Mass/Vol] 1.07 mg/dL 0.70-1.30 [facility] Comment on above: The validity of the calculated GFR & GFRAA in patients over 70 years has not been determined. Clinical correlation is essential. Serum or plasma low density lipoprotein (LDL) cholesterol measurement (mass/volume)Ordered By: Dr. Leyva on 04-03-2022 Cholesterol in LDL [Mass/Vol] 139 mg/dL 0-130 [facility] Serum or plasma urea nitroge n measurement (mass/volume)Ordered By: Dr. Leyva on 04-03-2022 Urea nitrogen [Mass/Vol] 23 mg/dL 7-18 [facility] Thin prep Papanicolaou smear with manual screeningOrdered By: Dr. Leyva on 04-03-2022 Thin prep Papanicolaou smear with manual screening 30 U/L 15-37 [facility] Thin prep Papanicolaou smear with manual screening 8 5-15 [facility] Thin prep Papanicolaou smear with manual screening 67.4 mg/L NO RANGE EST. [facility] Urine creatinine measurement (mass/volume)Ordered By: Dr. Leyva on 04-03-2022 Creatinine (U) [Mass/Vol] 178.00 mg/dL NO RANGE EST. [facility] Whole blood hemoglobin A1c/t otal hemoglobin ratio (mass fraction)Ordered By: Dr. Leyva on 04-03-2022 HbA1c (Bld) [Mass fraction] 7.3 % 3.8-5.6 [facility] Comment on above: Normal < 5.7 % Predi abetic 5.7 - 6.4 % Diabetic >or= 6.5 % Please note range changes. Absolute lymphocyte counton 08-02-2021 Lymphocytes Auto (Unsp spec) [#/Vol] 1.44 10*3/uL 0.83-4.51 [facility] Work Phone: Basophil percentageon 2021 Basophils/100 WBC (Bld) 0.9 % 0-1 [facility] Work Phone: Bilirubin [Mass/Vol] 0.90 mg/dL 0.20-1.00 [facility] Work Phone: Comment on above: For patients on eltr ombopag therapy, use of Dimension Sperry TBIL is not recommended. Chloride [Moles/Vol] 106 mmol/L 98-107 [facility] Work Phone: Cholesterol [Mass/Vol] 214 mg/dL <200 [facility] Work Phone: Comment on above: <200 mg/dL Desirable 200-240 mg/dL Borderline >240 mg/dL High Risk Eosinophils/100 WBC (Bld) 0.8 % 0-5 [facility] Work Phone: Glucose [Mass/Vol] 126 mg/dL 74-106 [facility] Work Phone: Comment on above: Fasting Glucose resu lt greater than or equal to 126 mg/dL suggests DIABETES MELLITUS per A.D.A. criteria. Neutrophils (Bld) [#/Vol] 4.3 10*3/uL 2.0-7.7 [facility] Work Phone: Neutrophils/100 WBC (Bld) 66.4 % 47-70 [facility] Work Phone: Potassium [Moles/Vol] 3.8 mmol/L 3.5-5.1 [facility] Work Phone: Protein [Mass/Vol] 7.0 g/dL 6.4-8.2 [facility] Work Phone: Sodium [Moles/Vol] 139 mmol/L 136-145 [facility] Work Phone: Triglyceride [Mass/Vol] 86 mg/dL <199 [facility] Work Phone: Comment on above: The drugs N-Acetylcy steine and Metamizole may falsely depress this assay.Serum Triglycerides Reference Interval Normal <150 mg/dL Borderline high 150 - 199 mg/dL High 200 - 499 mg/dL Very High > or = 500 mg/dL WBC (Bld) [#/Vol] 6.5 10*3/uL 4.4-11.0 [facility] Work Phone: Blood erythrocytes count (nu mber/volume)on 08-02-2021 RBC (Bld) [#/Vol] 5.46 10*6/uL 4.6-6.2 [facility] Work Phone: Blood hemoglobin measurement (mass/volume)on 08-02-2021 Hemoglobin (Bld) [Mass/Vol] 15.6 g/dL 13.0-16.5 [facility] Work Phone: Blood lymphocytes/100 leukoc yteson 08-02-2021 Lymphocytes/100 WBC (Bld) 22.2 % 19-41 [facility] Work Phone: Blood monocytes/100 leukocyt eson 08-02-2021 Monocytes/100 WBC (Bld) 9.4 % 0-10 [facility] Work Phone: [phone] Blood platelet mean volumeon 08-02-2021 Platelet mean volume (Bld) [Entitic vol] 10.0 fL 6.2-12.0 [facility] Work Phone: Determination of erythrocyte mean corpuscular volume (MCV)on 08-02-2021 MCV (RBC) [Entitic vol] 86.4 fL 80-94 [facility] Work Phone: Hematocrit Auto (Bld) [Volum e fraction]on 08-02-2021 Hematocrit (Bld) [Volume fraction] 47.2 % 40-54 [facility] Work Phone: Laboratory - Chemistry and C hemistry - challengeon 08-02-2021 ALP [Catalytic activity/Vol] 49 U/L 45-117 [facility] Work Phone: ALT [Catalytic activity/Vol] 24 U/L 16-61 [facility] Work Phone: CO2 [Moles/Vol] 26.0 mmol/L 21.0-32.0 [facility] Work Phone: Globulin (S) [Mass/Vol] 3.3 g/dL 2.2-4.2 [facility] Work Phone: Urea nitrogen/Creatinine [Mass ratio] 21.6 mg/mg 10-20 [facility] Work Phone: Laboratory - Hematology and Cell countson 08-02-2021 Erythrocyte distribution width (RBC) [Entitic vol] 40.9 fL 35.1-43.9 [facility]: Erythrocyte distribution width (RBC) [Ratio] 13.2 % 11.6-14.6 [facility] Work Phone: Immature granulocytes/100 WBC (Bld) 0.300 % 0.0-0.9 [facility] Work Phone: Comment on above: IG% - Immature Granu locytes (promyelocytes, myelocytes and metamyelocytes) > 1% indicates that a LEFT SHIFT is Present. MCH (RBC) [Entitic mass] 28.6 pg 27.0-32.0 [facility] Work Phone: Nucleated RBC/100 WBC (Bld) [Ratio] 0 % 0-5 [facility] Work Phone: MCHC Auto (RBC) [Mass/Vol]on 08-02-2021 MCHC (RBC) [Mass/Vol] 33.1 g/dL 32-36 [facility] Work Phone: No Panel Informationon 08-02 Estimated GFR (MDRD) Amer 90 mL/min >60 [facility] Work Phone: Comment on above: GFR Calc Estimated GFR (MDRD) Non-Af Amer 75 mL/min >60 [facility] Work Phone: Comment on above: Non- GFR Calc Urine Microalbumin/Creatinine Ratio 18.6 mg/g CRE <30 [facility] Work Phone: Platelets bldon 08-02-2021 Platelets (Bld) [#/Vol] 233 10*3/uL 150-450 [facility] Work Phone: Serum or plasma albumin adore urement (mass/volume)on 08-02-2021 Albumin [Mass/Vol] 3.7 g/dL 3.2-5.0 [facility] Work Phone: Serum or plasma albumin/glob ulin mass ratioon 08-02-2021 Albumin/Globulin [Mass ratio] 1.1 {ratio} 0.9-2.4 [facility] Work Phone: Serum or plasma calcium adore urement (mass/volume)on 08-02-2021 Calcium [Mass/Vol] 8.9 mg/dL 8.5-10.1 [facility] Work Phone: Serum or plasma cholesterol in HDL measurement (mass/volume)on 08-02-2021 Cholesterol in HDL [Mass/Vol] 40 mg/dL >40 [facility] Work Phone: Comment on above: The drugs N-Acetylcy steine and Metamizole may falsely depress this assay. Reference Range HDL <40 mg/dL Low HDL Cholesterol HDL >or= 60 mg/dL High HDL Cholesterol Serum or plasma cholesterol in VLDL measurement (mass/volume)on 08-02-2021 Cholesterol in VLDL [Mass/Vol] 17 mg/dL 5-40 [facility] Work Phone: Serum or plasma creatinine m easurement (mass/volume)on 08-02-2021 Creatinine [Mass/Vol] 1.02 mg/dL 0.70-1.30 [facility] Work Phone: Comment on above: The validity of the calculated GFR & GFRAA in patients over 70 years has not been determined. Clinical correlation is essential. Serum or plasma low density lipoprotein (LDL) cholesterol measurement (mass/volume)on 08-02-2021 Cholesterol in LDL [Mass/Vol] 157 mg/dL 0-130 [facility] Work Phone: Serum or plasma urea nitroge n measurement (mass/volume)on 08-02-2021 Urea nitrogen [Mass/Vol] 22 mg/dL 7-18 [facility] Work Phone: Thin prep Papanicolaou smear with manual screeningon 08-02-2021 Thin prep Papanicolaou smear with manual screening 19 U/L 15-37 [facility] Work Phone: Thin prep Papanicolaou smear with manual screening 7 5-15 [facility] Work Phone: Thin prep Papanicolaou smear with manual screening 24.0 mg/L NO RANGE EST. [facility] Work Phone: Urine creatinine measurement (mass/volume)on 08-02-2021 Creatinine (U) [Mass/Vol] 129.00 mg/dL NO RANGE EST. [facility] Work Phone: Whole blood hemoglobin A1c/t otal hemoglobin ratio (mass fraction)on 08-02-2021 HbA1c (Bld) [Mass fraction] 7.0 % 3.8-5.6 [facility] Work Phone: Comment on above: Normal < 5.7 % Predi abetic 5.7 - 6.4 % Diabetic >or= 6.5 % Please note range changes. Encounters Encounter Date Encounter Type Care Provider Facility Start: 06-30-2024 End: 06-30-[address] Chele Leyva DO Work Phone: [facility] Work Phone: Start: 06-30-2024 End: 06-30-2024 Departed Referred Danielle CorderoCelestina Antoni Barraza/[employer] Start: 06-30-2024 End: 06-30-2024 ambulatory Chele Leyva Facility:[facility] Start: 06-02-2024 End: 06-02-[address] Chele Leyva DO Work Phone: [facility] Work Phone: Start: 06-02-2024 End: 06-02-2024 Departed Referred Danielle Barraza/[facility] Start: 06-02-2024 End: 06-02-2024 ambulatory Danielle BURTON Facility:[facility] Start: 05-17-2024 End: 05-17-[address] Chele Leyva DO Work Phone: [facility] Work Phone: Start: 05-17-2024 End: 05-17-[address] Danielle Niño MD -[facility] Work Phone: Start: 05-05-2024 End: 05-05-[address] Chele Leyva DO Work Phone: [facility] Work Phone: Start: 05-05-2024 End: 05-05-2024 Departed Referred Danielle Nelson Start: 05-05-2024 End: 05-05-2024 ambulatory Danielle BURTON Facility:[facility] Start: 04-18-2024 End: 04-18-2024 ambulatory Lili Haynes [employer] Facility:[facility] Start: 04-18-2024 End: 04-18-2024 Patient encounter procedure Lili Haynes [employer]-C -[facility] Work Phone: Start: 04-07-2024 ambulatory Danielle BURTON Fa cility:[facility] Start: 04-07-2024 Registered Referred Danielle Barraza/[facility]min Start: 03-29-2024 End: 03-29-2024 ambulatory [facility] Facility:[facility] Start: 03-29-2024 End: 03-29-[address] [facility] Work Phone: Start: 03-03-2024 End: 03-03-2024 Departed Referred Danielle Nelson Start: 03-03-2024 End: 03-03-2024 ambulatory Danielle BURTON Facility: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 Start: 02-04-2024 Registered Referred Danielle Nelson Start: 02-02-2024 End: 02-02-2024 ambulatory [facility] Facility:[facility] Start: 02-02-2024 End: 02-02-[address] [facility] Work Phone: Start: 01-07-2024 End: 01-07-2024 ambulatory Efewongbe Ruthe OLS Facility:[facility] Start: 12-30-2023 End: 12-30-2023 ambulatory Chele Autumn Facility:[facility] Start: 12-03-2023 ambulatory Chele Autumn Facility: [facility] Start: 11-17-2023 End: 11-17-2023 ambulatory Chele Autumn Facility:[facility] Start: 11-16-2023 ambulatory Chele Autumn Facility: [facility] Start: 11-02-2023 End: 11-02-2023 ambulatory Chele Autumn Facility:[facility] Start: 10-08-2023 End: 10-08-2023 ambulatory Chele Autumn Facility:[facility] Start: 10-02-2023 End: 10-02-2023 ambulatory Chele Autumn Facility:[facility] Start: 09-22-2023 End: 09-22-2023 ambulatory Chele Autumn Facility:[facility] Start: 09-10-2023 End: 09-10-2023 ambulatory Efewpenelopebe Ruthe OLS Facility:[facility] Start: 08-17-2023 End: 08-17-2023 ambulatory Chele Autumn Facility:[facility] Start: 08-13-2023 End: 08-13-2023 ambulatory Chele Autumn Facility:[facility] Start: 07-30-2023 End: 07-30-2023 ambulatory Danielle Mirandae OLS Facility:[facility] Start: 05-19-2023 End: 05-19-[address] [facility] Work Phone: Start: 05-19-2023 End: 05-19-[address] [facility]-Cat Miriam, [facility] Work Phone: Start: 04-21-2023 End: 04-21-[address] [facility] Work Phone: Start: 04-21-2023 End: 04-21-[address] [facility] Start: 03-17-2023 End: 03-17-[address] [facility] Work Phone: Start: 03-17-2023 End: 03-17-[address] [facility], [place] Work Phone: Start: 10-14-2022 End: 10-14-[address] [facility] Work Phone: Start: 10-14-2022 End: 10-14-2022 [facility] Start: 07-22-2022 End: 07-22-2022 [facility] Start: 04-03-2022 End: 04-03-[address] [facility] Work Phone: Start: 04-03-2022 End: 04-03-2022 [facility] Start: 08-02-2021 End: 08-02-2021 [facility] [place] Procedures Date Procedure Procedure Detail Performing Clinician Start: 04-07-2024 Measurement of renal function Dr. Chele Leyva DO Work Phone: Comment on above: GFR Calc Start: 03-03-2024 Measurement of renal function Dr. Chele Leyva DO Work Phone: Comment on above: GFR Calc Start: 05-19-2023 CT of head without contrast Start: 03-17-2023 End: 03-17-2023 Plain X-ray of tibia and fibula Payers Date Payer Category Payer Private Health Insurance [id number] 2023 Self-pay [id number] 2014 Medicare [id number] 2006 Medicare [id number] Private Health Insurance [facility] [id number] [facility] [id number] Unknown [id number] 62 Unknown [id number] 2.16.840.1.519540.3.579.2.4 62 Unknown [id number] 2.16.840.1.569641.3.579.2.4 62 Unknown [id number] 2.16.840.1.669928.3.579.2.4 62 Unknown [id number] 2.16.840.1.710089.3.579.2.4 62 Unknown [id number] 2.16.840.1.514738.3.579.2.4 62 Unknown [id number] 2.16.840.1.184521.3.579.2.4 62 Unknown [id number] 2.16.840.1.439663.3.579.2.4 62 Unknown [id number] 2.16.840.1.770125.3.579.2.4 62 Unknown [id number] 2.16.840.1.233545.3.579.2.4 62 Unknown [id number] 2.16.840.1.081922.3.579.2.4 62 Unknown [id number] 2.16.840.1.195966.3.579.2.4 62 Unknown [id number] 2.16.840.1.742341.3.579.2.4 62 Unknown [id number] 2.16.840.1.387233.3.579.2.4 62 Unknown [id number] 2.16.840.1.958694.3.579.2.4 62 Unknown [id number] 2.16.840.1.702911.3.579.2.4 62 Unknown [id number] 2.16.840.1.551754.3.579.2.4 62 Unknown [id number] 2.16.840.1.812463.3.579.2.4 62 Unknown [id number] 2.16.840.1.507790.3.579.2.4 62 Unknown [id number] 2.16.840.1.291832.3.579.2.4 62 Unknown [id number] 2.16.840.1.924700.3.579.2.4 62 Unknown [id number] 2.16.840.1.578519.3.579.2.4 62 Unknown [id number] 2.16.840.1.643426.3.579.2.4 62 Unknown [id number] 2.16.840.1.645670.3.579.2.4 62 Social History Date Type Detail Facility Start: 11-30-2015 End: 11-30-2015 Tobacco smoking status MIIS Unknown if ever smoked [facility] Start: 1940 Sex Assigned At Male [facility] Start: 05-19-2024 Tobacco smoking stat us MIIS Never smoked tobacco (finding) [facility] Start: 05-24-2024 End: 06-03-2024 Sex Male (finding) [facility] Evaluation note Note Date & Type Note Facility Evaluation note No assessment information availa ble [facility] Work Phone: Reason for referral (narrative) Note Date & Type Note Facility Reason for referral (narrative) No reason for referral information available [facility] Work Phone: Advance Directives Advance Directive Response Recorded Date/ Time Advance Directives Yes December 06, 2015 7:23am Living Will Yes December 05 7:23am Power of Medical Technologist Yes December 06, 2015 7:23am Advance Directive Response Recorded Date/ Time Advance Directives Yes December 06, 2015 6:23am Living Will Yes December 05 6:23am Power of Medical Technologist Yes December 06, 2015 6:23am Advance Directive Response Recorded Date/ Time Advance Directives Yes May 19 8:00am Chief Complaint and Reason for Visit Chief Complaint LEG PAIN Chief Complaint LEG PAIN MEMORY IMPAIRMENT, DELUSIONS, ABN GAIT Chief Complaint Admit Date MONTHLY EXAM February 02, 2024 6:35pm LABWORK February 04, 2024 5:00am NEW CONCERN February 22, 2024 3: 09pm LONG TERM LAB WORK March 03, 2024 5:00am MONTHLY EXAM - MD March 29, 2024 12:41pm LABWORK April 07, 2024 5:00am MONTHLY EXAM April 18, 2024 4:50 pm LONG TERM LAB WORK May 05, 2024 5 :00am Chief Complaint Admit Date LABWORK February 04, 2024 5:00am NEW CONCERN February 22, 2024 3: 09pm LONG TERM LAB WORK March 03, 2024 5:00am MONTHLY EXAM - MD March 29, 2024 12:41pm LABWORK April 07, 2024 5:00am MONTHLY EXAM April 18, 2024 4:50 pm LONG TERM LAB WORK May 05, 2024 5 :00am LONG TERM LAB WORK June 02, 2024 4 :00am Chief Complaint Admit Date LONG TERM LAB WORK March 03, 2024 5:00am MONTHLY EXAM - MD March 29, 2024 12:41pm LABWORK April 07, 2024 5:00am MONTHLY EXAM April 18, 2024 4:50 pm LONG TERM LAB WORK May 05, 2024 5 :00am MONTHLY EXAM May 17, 2024 3:18 pm LONG TERM LAB WORK June 02, 2024 4 :00am Chief Complaint Admit Date MONTHLY EXAM - MD March 29, 2024 12:41pm LABWORK April 07, 2024 5:00am MONTHLY EXAM April 18, 2024 4:50 pm LONG TERM LAB WORK May 05, 2024 5 :00am MONTHLY EXAM May 17, 2024 3:18 pm LONG TERM LAB WORK June 02, 2024 4 :00am LABWORK June 30, 2024 5:00a m Summary Purpose Family History No Family History Records Found Additional Source Comments Goals (unrecognized section and content) Goals may be documented in a n alternate sectionGoals may be documented in an alternate sectionGoals may be documented in an alternate sectionGoals may be documented in an alternate sectionGoals may be documented in an alternate sectionGoals may be documented in an alternate sectionGoals may be documented in an alternate sectionGoals may be documented in an alternate sectionGoals may be documented in an alternate sectionGoals may be documented in an alternate section Care Teams (unrecognized sec tion and content) Team Status: Active Member Role Status Dates Dr. Chele Leyva DO Family Provider Active Dr. Chele Leyva DO Primary Care Provider Active Team Status: Inactive Member Role Status Dates Dr. Chele Leyva DO Primary Care Provider, Attendin g Provider Active Team Status: Inactive Member Role Status Dates Dr. Chele Leyva DO Primary Care Prov ider, Attending Provider, Referring Provider Active Team Status: Inactive Member Role Status Dates Dr. Chele Leyva DO Primary Care Provider Active Start: February 02, 2024 End: February 02, 2024 Dr. Danielle Niño MD Attending Provider Active Start: February 02, 2024 End: February 02, 2024 Team Status: Active Member Role Status Dates Dr. Chele Leyva DO Primary Care Provider Active Start: February 04, 2024 Danielle BURTON MD Attending Provider Active Start: February 04, 2024 Team Status: Inactive Member Role Status Dates Dr. Chele Leyva DO Primary Care Provider Active Start: February 22, 2024 End: February 22, 2024 Lili Haynes NP [employer]AT[employer]ACHINE [employer]-C Attending Provider Active Start: February 22, 2024 End: February 22, 2024 Team Status: Inactive Member Role Status Dates Dr. Chele Leyva DO Primary Care Provider Active Start: March 03, 2024 End: March 03, 2024 Danielle BURTON MD Attending Provider Active Start: March 03, 2024 End: March 03, 2024 Team Status: Inactive Member Role Status Dates Dr. Chele Leyva DO Primary Care Provider Active Start: March 29, 2024 End: March 29, 2024 Dr. Danielle Niño MD Attending Provider Active Start: March 29, 2024 End: March 29, 2024 Team Status: Active Member Role Status Dates Dr. Chele Leyva DO Primary Care Provider Active Start: April 07, 2024 Danielle BURTON MD Attending Provider Active Start: April 07, 2024 Team Status: Inactive Member Role Status Dates Dr. 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 Chele Leyva DO Primary Care Provider Active Start: May 05, 2024 End: May 05, 2024 Danielle BURTON MD Attending Provider Active Start: May 05, 2024 End: May 05, 2024 Team Status: Inactive Member Role Status Dates Dr. Chele Leyva DO Primary Care Provider Active Start: June 02, 2024 End: June 02, 2024 Danielle BURTON MD Attending Provider Active Start: June 02, 2024 End: June 02, 2024 Danielle BURTON MD Referring Provider Active Start: June 02, 2024 End: June 02, 2024 Team Status: Inactive Member Role Status Dates Dr. Chele Leyva DO Primary Care Provider Active Start: May 17, 2024 End: May 17, 2024 Dr. Danielle Niño MD Attending Provider Active Start: May 17, 2024 End: May 17, 2024 Team Status: Inactive Member Role Status Dates Dr. Chele Leyva DO Primary Care Provider Active Start: June 30, 2024 End: June 30, 2024 Danielle BURTON MD Attending Provider Active Start: June 30, 2024 End: June 30, 2024 (unrecognized sect ion and content) No Status Records Found INFORMATION SOURCE (unrecogn ized section and content) DATE CREATED AUTHOR 07/21/2024 [facility] FOR RECORDS PERTAINING TO PATIENTS WHO ARE OR HAVE BEEN ENROLLED IN A CHEMICAL DEPENDENCY/SUBSTANCEABUSE PROGRAM, SOME INFORMATION MAY BE OMITTED. This clinical summary was aggregated from multiple sources. Caution should be exercised in using it in the provision of clinical care. This summary normalizes information from multiple sources, and as a consequence, information in this document may materially change the coding, format and clinical context of patient data. In addition, data may be omitted in some cases. CLINICAL DECISIONS SHOULD BE BASED ON THE PRIMARY CLINICAL RECORDS. [employer] provides no warranty or guarantee of the accuracy or completeness of information in this document.
[2024-08-04 08:15] LABS: Absolute Lymphocyte Count 2.05 X10^3/uL (0.83-4.51); Absolute Neutrophil Count 4.1 X10^3/uL (2.0-7.7); Basophil# 0.07 X10^3/uL; Eosinophil# 0.23 X10^3/uL; Eosinophils% 3.2 % (0-5); Hematocrit 44.6 % (40-54); Hemoglobin 14.9 g/dL (13.0-16.5); Lymphocyte # 2.05 X10^3/ul (0.83-4.51); Lymphocyte % 28.3 % (19-41); Mean Corp Hgb Conc 33.4 g/dL (32-36); Mean Corpuscular Hgb 28.2 pg (27.0-32.0); Mean Corpuscular Volume 84.5 fL (80-94); Mean Platelet Vol. 9.9 fl (6.2-12.0); Monocyte# 0.78 X10^3/uL; Monocyte% 10.8 % (0-10); NRBC Flagged by Analyzer 0 % (0-5); Neutrophil # 4.09 X10^3/uL (2.7-7.7); Neutrophil % 56.3 % (47-70); Platelet Count 229 K/mm3 (150-450); RBC Distribution Width CV 13.1 % (11.6-14.6); RBC Distribution Width SD 40.9 fl (35.1-43.9); Red Blood Count 5.28 M/mm3 (4.6-6.2); White Blood Count 7.3 K/mm3 (4.4-11.0)
[2024-08-04 08:28] LABS: Anion Gap 12 (5-15); BUN 20 mg/dL (4-19); BUN/Creat Ratio 17.9 RATIO (10-20); Calcium,Total 8.8 mg/dL (7.6-11.0); Carbon Dioxide 24.3 mmol/L (21.0-32.0); Chloride 102 mmol/L (98-108); Creatinine, Serum 1.09 mg/dL (0.70-1.20); EST Glomerular Filtration Rate 67 (>60); Glucose 141 mg/dL (70-99); Potassium 4.5 mmol/L (3.3-5.1); Sodium Level 138 mmol/L (133-145)
== END ==
LOC: OLS.WHLTSB 05:00
PROVIDERS: PCP Family Medicine; Visit Provider Internal Medicine
DX: E11.9 Type 2 diabetes mellitus without complications (principal); G80.9 Cerebral palsy, unspecified; F02.80 Dementia in other diseases classified elsewhere, unspecified severity, without behavioral disturbance, psychotic disturbance, mood disturbance, and anxiety; M54.50 Low back pain, unspecified
CPT/HCPCS: 36415; 80048; 85025

== ENCOUNTER → 2024-09-01 05:00 | Outpatient (REF) | payer MEDICARE, SELFPAY ==
[2024-09-01 08:37] LABS: Hematocrit 41.5 % (40-54); Hemoglobin 14.1 g/dL (13.0-16.5); Immature Granulocytes Count 0.040 X10^3/uL (0.0-0.0); Mean Corp Hgb Conc 34.0 g/dL (32-36); Mean Corpuscular Volume 83.3 fL (80-94); Mean Platelet Vol. 9.7 fl (6.2-12.0); NRBC Flagged by Analyzer 0 % (0-5); Platelet Count 196 K/mm3 (150-450); RBC Distribution Width CV 13.5 % (11.6-14.6); RBC Distribution Width SD 40.9 fl (35.1-43.9); Red Blood Count 4.98 M/mm3 (4.6-6.2); White Blood Count 7.5 K/mm3 (4.4-11.0)
[2024-09-01 08:51] LABS: AST(SGOT) 23 U/L (<=37); Alanine Aminotransfer ALT/SGPT 12 U/L (<=46); Albumin, Serum 3.6 g/dL (3.4-4.8); Alkaline Phosphatase 53 U/L (40-129); Anion Gap 12 (5-15); BUN 20 mg/dL (4-19); BUN/Creat Ratio 18.4 RATIO (10-20); Bilirubin, Direct 0.14 mg/dL (0.00-0.30); Calcium,Total 8.8 mg/dL (7.6-11.0); Carbon Dioxide 23.6 mmol/L (21.0-32.0); Chloride 101 mmol/L (98-108); Globulin 2.4 g/dL (2.2-4.2); Glucose 140 mg/dL (70-99); Potassium 4.3 mmol/L (3.3-5.1)
== END ==
LOC: OLS.WHLTSB 05:00
PROVIDERS: PCP Family Medicine; Visit Provider Internal Medicine
DX: G30.9 Alzheimer's disease, unspecified (principal); F66 Other sexual disorders; R19.7 Diarrhea, unspecified; M54.50 Low back pain, unspecified; R26.2 Difficulty in walking, not elsewhere classified; Z74.1 Need for assistance with personal care; Z23 Encounter for immunization; E11.9 Type 2 diabetes mellitus without complications
CPT/HCPCS: 36415; 80048; 80076; 83036; 85025

== ENCOUNTER → 2024-10-06 05:00 | Outpatient (REF) | payer MEDICARE, SELFPAY ==
[2024-10-06 08:31] LABS: Hematocrit 42.0 % (40-54); Hemoglobin 14.2 g/dL (13.0-16.5); Immature Granulocytes Count 0.020 X10^3/uL (0.0-0.0); Mean Corp Hgb Conc 33.8 g/dL (32-36); Mean Corpuscular Volume 84.7 fL (80-94); Mean Platelet Vol. 10.0 fl (6.2-12.0); NRBC Flagged by Analyzer 0 % (0-5); Platelet Count 184 K/mm3 (150-450); RBC Distribution Width CV 13.2 % (11.6-14.6); RBC Distribution Width SD 41.1 fl (35.1-43.9); Red Blood Count 4.96 M/mm3 (4.6-6.2); White Blood Count 6.6 K/mm3 (4.4-11.0)
[2024-10-06 09:11] LABS: Anion Gap 10 (5-15); BUN 22 mg/dL (4-19); BUN/Creat Ratio 22.5 RATIO (10-20); Calcium,Total 8.3 mg/dL (7.6-11.0); Carbon Dioxide 24.5 mmol/L (21.0-32.0); Chloride 103 mmol/L (98-108); Glucose 121 mg/dL (70-99); Potassium 4.0 mmol/L (3.3-5.1)
== END ==
LOC: OLS.WHLTSB 05:00
PROVIDERS: PCP Family Medicine; Visit Provider Internal Medicine
DX: G30.9 Alzheimer's disease, unspecified (principal); F66 Other sexual disorders; R19.7 Diarrhea, unspecified; M54.50 Low back pain, unspecified; Z23 Encounter for immunization; Z74.1 Need for assistance with personal care; R26.2 Difficulty in walking, not elsewhere classified
CPT/HCPCS: 36415; 80048; 85025

== ENCOUNTER → 2024-11-03 | Outpatient (REF) | payer MEDICARE, SELFPAY ==
--- OUTSIDE RECORDS SUMMARY | 2024-11-03 04:06 | XMS RPT_ITS | CCD ---
Author Organization [facility] Care Team Providers Care Predatory Hunter Name Role Phone Dr. Chele Leyva DO Primary Care Provider Dr. Danielle Niño MD Attending Provider Danielle Niño MD Attending Provider Lili Baxter Attending Provider Dr. Chele Leyva DO Primary Care Provider Dr. Danielle Niño MD Attending Provider Danielle Niño MD Referring Provider Dr. Chele Lara DO Primary Care Provider Danielle Niño MD Attending Provider Lili Baxter Attending Provider Dr. Chele Leyva DO Primary Care Provider Danielle Niño MD Attending Provider Dr. Chele Lara DO Primary Care Provider Danielle Niño MD Attending Provider Dr. Danielle Sanchez MD Attending Provider Dr. Chele Leyva DO Primary Care Provider Danielle Niño MD Attending Provider Lili Baxter Attending Provider Dr. Chele Leyva DO Primary Care Provider Dr. Danielle Nñio MD Attending Provider Autumn DO, Dr. Chele Primary Care Provider [phone] Danielle Niño MD Attending Provider Unavaila ble Oleghe, Efewongbe Attending Unavailable Chele Leyva Primary Care Unavailable Oleghe, Efewongbe Attending Unavailable Chele Leyva Primary Care Unavailable Jacinta Braswell Attending Unavailable Chele Leyva Primary Care Unavailable Oleghe, Efewongbe Attending Unavailable Chele Leyva Primary Care Unavailable Oleghe OLS, Efewongbe Attending Unavailabl e AutumnChele jon Primary Care Unavailable Oleghe OLS, Efewongbe Referring Unavailabl e Oleghe OLS, Efewongbe Attending Unavailabl Chele Moreira Primary Care Unavailable Oleghe OLS, Efewongbe Attending Unavailabl Chele Moreira Primary Care Unavailable Chele Leyva Primary Care Unavailable Oleghe OLS, Efewongbe Attending Unavailabl Chele Moreira Primary Care Unavailable Oleghe OLS, Efewongbe Attending Unavailabl Chele Moreira Primary Care Unavailable Oleghe OLS, Efewongbe Attending Unavailabl Chele Moreira Primary Care Unavailable Oleghe OLS, Efewongbe Attending Unavailabl stalin Haynes CELL SUPPORT OPERATOR, Lili Attending Unavailable Chele Leyva Primary Care Unavailable Oleghe, Efewongbe Attending Unavailable Chele Leyva Primary Care Unavailable [place] CELL SUPPORT OPERATOR, Lili Attending Unavailable Chele Leyva Primary Care Unavailable [place] CELL SUPPORT OPERATOR, Lili Attending Unavailable Chele Leyva Primary Care Unavailable Oleghe, Efewongbe Attending Unavailable Chele Leyva Primary Care Unavailable [place] CELL SUPPORT OPERATOR, Lili Attending Unavailable Chele Leyva Primary Care Unavailable Oleghe, Efewongbe Attending Unavailable Chele Leyva Primary Care Unavailable [place] CELL SUPPORT OPERATOR, Lili Attending Unavailable Chele Leyva Primary Care Unavailable Chele Leyva Primary Care Unavailable Oleghe OLS, Efewongbe Attending Unavailabl e Oleghe OLS, Efewongbe Attending Unavailabl Chele Moreira Primary Care Unavailable Chele Leyva Primary Care Unavailable Oleghe OLS, Efewongbe Attending Unavailabl e Oleghe OLS, Efewongbe Attending Unavailabl e Chele Leyva Primary Care Unavailable Oleghe OLS, Efewongbe Attending Unavailabl Chele Moreira Primary Care Unavailable Medications Current Medications Medication Drug Class(es) Dates Sig (Normalized) Sig (Original) finasteride 5 mg oral tablet (15 sources) 5-alpha Reductase Inhibitor Start: 11-30-2015 take 1 tablet by mouth once daily Finasteride 5 MG tablet Active 5 mg PO DAILY November 30, 2015 12:00am lisinopril 2.5 mg oral tablet (15 sources) Angiotensin Converting Enzyme Inhibitor Start: 09-10-2014 take 1 tablet by mouth once daily Lisinopril 2.5 MG tablet Active 2.5 mg PO DAILY September 10, 2014 12:00am LORazepam 0.5 mg oral tablet (20 sources) Benzodiazepine Start: 09-20-2024 End: 09-22-2024 take 0.25 mg by mouth at bedtime Lorazepam 0.5 mg tablet Active 0.25 mg PO AT BEDTIME 15 30 0 September 22, 2024 10:38am October 21, 2024 12:00am Anxiety Start: 03-01-2024 End: 09-20-2024 take 1 tablet by mouth at bedtime Lorazepam 0.5 mg tablet Discontinued 0.5 mg PO AT BEDTIME 30 30 0 September 14, 2024 11:04am October 13, 2024 12:00am September 20, 2024 1:40pm Pancreas Balance (15 sources) Start: 11-30-2015 Pancreas Ambika ce Active 2 {tbl} PO TWICE A DAY November 30, 2015 12:00am Start: 11-30-2015 take 2 tablets by [facility] twice daily Pancreas Balance Active 2 TABLET PO TWICE A DAY November 29, 2015 11:00pm Start: 11-30-2015 take 2 tablets by [facility] twice daily Pancreas Balance Active 2 TABLET PO TWICE A DAY November 30, 2015 12:00am Completed/Discontinued Medications Medication Drug Class(es) Dates Sig (Normalized) Sig (Original) oxyCODONE hydrochloride 5 mg oral tablet (20 sources) Opioid Agonist Start: 05-31-2024 End: 09-30-2024 take 1 tablet by mouth twice daily Oxycodone 5 mg tablet Discontinued 5 mg PO TWICE A DAY 60 30 0 August 31, 2024 September 29, 2024 12:00am September 30, 2024 12:10am Chronic pain Other chronic pain pain Start: 02-22-2024 End: 03-31-2024 take 1 tablet by mouth twice daily Oxycodone 5 mg tablet Discontinued 5 mg PO TWICE A DAY 60 30 0 March 01, 2024 March 30, 2024 1:00am March 31, 2024 1:11am Chronic pain Other chronic pain pain Start: 02-18-2024 End: 03-01-2024 take 2.5 mg by mouth twice daily Oxycodone 5 mg tablet Discontinued 2.5 mg PO TWICE A DAY 30 30 0 February 18, 2024 March 18, 2024 1:00am March 01, 2024 1:00pm Chronic pain Other chronic pain pain Problems Active Problems Problem Classification Problem Date Documented Da te Episodic/Chronic Delirium, dementia, and amnestic and other cognitive disorders (2 sources) Alzheimer's disease, unspecified; Translations: [Alzheimer's disease, unspecified] Onset: 06-03-2024 Chronic Diabetes mellitus without complication (2 sources) Type 2 diabetes mellitus without complications; Translations: [Type 2 diabetes mellitus without complications] Onset: 07-20-2024 Chronic Miscellaneous mental health disorders (2 sources) Other sexual disorders; Translations: [Other sexual disorders] Onset: 06-03-2024 Chronic Other gastrointestinal disorders (2 sources) Diarrhea, unspecified; Translations: [Diarrhea, unspecified] Onset: 06-03-2024 Episodic Other nervous system disorders (9 sources) Chronic pain; Translations: [Other chronic pain] 02-18-2024 Chronic Unclassified (1 source) Low back pain, unspecified; Translations: [Low back pain, unspecified] Onset: 06-03-2024 Past or Other Problems Problem Classification Problem Date Documented Da te Episodic/Chronic Administrative/social admission (1 source) Need for assistance with personal care; Translations: [Need for assistance with personal care] Onset: 06-03-2024 Episodic Immunizations and screening for infectious disease (1 source) Encounter for immunization; Translations: [Encounter for immunization] Onset: 06-03-2024 Episodic Results Test Name Value Interpretation Reference Range Facility Absolute lymphocyte countOrd ered By: Danielle iNño on 09-01-2024 Lymphocytes Auto (Unsp spec) [#/Vol] 1.84 10*3/uL 0.83-4.51 [facility] Absolute neutrophil countOrd ered By: Danielle Niño on 09-01-2024 Neutrophils (Bld) [#/Vol] 4.3 10*3/uL 2.0-7.7 [facility] Anion gap in Serum or Plasma Ordered By: Danielle Niño on 09-01-2024 Anion gap [Moles/Vol] 12 mmol/L 5-15 [facility] Automated lymphocyte count a s percentage of total leukocytesOrdered By: Danielle Niño on 09-01-2024 Lymphocytes/100 WBC Auto (Unsp spec) 24.7 % 19-41 [facility] BUN/creatinine ratioOrdered By: Danielle Niño on 09-01-2024 Urea nitrogen/Creatinine [Mass ratio] 18.4 mg/mg 10-20 [facility] Basophil percentageOrdered B y: Danielle Niño on 09-01-2024 Basophils/100 WBC (Bld) 0.8 % 0-1 [facility] Bilirubin directOrdered By: Danielle Niño on 09-01-2024 Bilirubin.direct [Mass/Vol] 0.14 mg/dL 0.00-0.30 [facility] Bilirubin, totalOrdered By: Danielle Niño on 09-01-2024 Bilirubin [Mass/Vol] 0.39 mg/dL 0.00-1.30 [facility] Carbon dioxide, total [Moles /volume] in Central venous bloodOrdered By: Danielle Niño on 09-01-2024 CO2 [Moles/Vol] 23.6 mmol/L 21.0-32.0 [facility] Chloride assayOrdered By: Karen Niño on 09-01-2024 Chloride [Moles/Vol] 101 mmol/L 98-108 [facility] Eosinophil percentageOrdered By: Danielle Niño on 09-01-2024 Eosinophils/100 WBC (Bld) 3.2 % 0-5 [facility] Erythrocyte distribution wid th ratioOrdered By: Danielle Niño on 09-01-2024 Erythrocyte distribution width (RBC) [Ratio] 13.5 % 11.6-14.6 [facility] Erythrocyte distribution wid th standard deviationOrdered By: Danielle Niño on 09-01-2024 Erythrocyte distribution width (RBC) [Ratio] 40.9 fl 35.1-43.9 [facility] Glomerular filtration rate ( GFR) estimation/1.73 sq m using serum, plasma, or whole bOrdered By: Danielle Niño on 09-01-2024 GFR/1.73 sq M.predicted among non-blacks MDRD (S/P/Bld) [Vol rate/Area] 67 mL/min/{1.73_m2} >60 [facility] Comment on above: mL/min/1.73m2 CKD-EP I Creatinine Equation (2020) Hematocrit Auto (Bld) [Volum e fraction]Ordered By: Danielle Niño on 09-01-2024 Hematocrit (Bld) [Volume fraction] 41.5 % 40-54 [facility] Hemoglobin A1c percentageOrd ered By: Danielle Niño on 09-01-2024 HbA1c (Bld) [Mass fraction] 6.9 % High <5.7 [facility] Comment on above: Normal < 5.7 % Predi abetic 5.7 - 6.4 % Diabetic >or= 6.5 % Please note range changes. Hemoglobin measurementOrdere d By: Danielle Niño on 09-01-2024 Hemoglobin (Bld) [Mass/Vol] 14.1 g/dL 13.0-16.5 [facility] Immature granulocytes/100 WB C Auto (Bld)Ordered By: Danielle Niño 09-01-2024 Immature granulocytes/100 WBC (Bld) 0.500 % 0.0-0.9 [facility] Comment on above: IG% - Immature Granu locytes (promyelocytes, myelocytes and metamyelocytes) > 1% indicates that a LEFT SHIFT is Present. Laboratory - Chemistry and C hemistry - challengeOrdered By: Danielle Niño on 09-01-2024 AST [Catalytic activity/Vol] 23 U/L <38 [facility] MCV (mean corpuscular volume ) determinationOrdered By: Danielle Niño 09-01-2024 MCV (RBC) [Entitic vol] 83.3 fL 80-94 [facility] Mean corpuscular hemoglobin (MCH) determinationOrdered By: Danielle Niño on 09-01-2024 MCH (RBC) [Entitic mass] 28.3 pg 27.0-32.0 [facility] Mean corpuscular hemoglobin concentration (MCHC) determinationOrdered By: Danielle Niño on 09-01-2024 MCHC (RBC) [Mass/Vol] 34.0 g/dL 32-36 [facility] Mean platelet volume determi nationOrdered By: Danielle Niño on 09-01-2024 Platelet mean volume (Bld) [Entitic vol] 9.7 fL 6.2-12.0 [facility] Monocyte percentageOrdered B y: Danielle Niño on 09-01-2024 Monocytes/100 WBC (Bld) 12.5 % High 0-10 [facility] Neutrophil percentageOrdered By: Danielle Niño on 09-01-2024 Neutrophils/100 WBC (Bld) 58.3 % 47-70 [facility] Nucleated red blood cell per centageOrdered By: Danielle Niño on 09-01-2024 Nucleated RBC/100 WBC (Bld) [Ratio] 0 % 0-5 [facility] Platelet countOrdered By: Karen Niño on 09-01-2024 Platelets (Bld) [#/Vol] 196 10*3/uL 150-450 [facility] Potassium measurement (mass/ volume)Ordered By: Danielle Niño on 09-01-2024 Potassium (Unsp spec) [Mass/Vol] 4.3 mmol/L 3.3-5.1 [facility] RBC Auto (Bld) [#/Vol]Ordere d By: Danielle Niño on 09-01-2024 RBC (Bld) [#/Vol] 4.98 10*6/uL 4.6-6.2 [facility] Serum creatinine measurement (mass/volume)Ordered By: Danielle Niño on 09-01-2024 Creatinine [Mass/Vol] 1.10 mg/dL 0.70-1.20 [facility] Serum globulin measurementOr dered By: Danielle Niño on 09-01-2024 Globulin (S) [Mass/Vol] 2.4 g/dL 2.2-4.2 [facility] Serum glucose measurement (m ass/volume)Ordered By: Danielle Niño on 09-01-2024 Glucose [Mass/Vol] 140 mg/dL High 70-99 [facility] Serum or plasma alanine chilel otransferase (ALT) measurementOrdered By: Danielle Niño on 09-01-2024 ALT [Catalytic activity/Vol] 12 U/L <47 [facility] Serum or plasma albumin adore urement (mass/volume)Ordered By: Danielle Niño on 09-01-2024 Albumin [Mass/Vol] 3.6 g/dL 3.4-4.8 [facility] Serum or plasma alkaline aruna sphatase measurementOrdered By: Danielle Niño on 09-01-2024 ALP [Catalytic activity/Vol] 53 U/L 40-129 [facility] Serum or plasma calcium adore urement (mass/volume)Ordered By: Danielle Niño on 09-01-2024 Calcium [Mass/Vol] 8.8 mg/dL 7.6-11.0 [facility] Serum or plasma urea nitroge n measurement (mass/volume)Ordered By: Danielle Niño on 09-01-2024 Urea nitrogen [Mass/Vol] 20 mg/dL High 4-19 [facility] Sodium levelOrdered By: Carly underwoodstalin Renay on 09-01-2024 Sodium [Moles/Vol] 137 mmol/L 133-145 [facility] Total proteinOrdered By: Pravin Niño on 09-01-2024 Protein [Mass/Vol] 6.0 g/dL 5.9-8.4 [facility] White blood cell (WBC) count Ordered By: Danielle Niño on 09-01-2024 WBC (Bld) [#/Vol] 7.5 10*3/uL 4.4-11.0 [facility] Absolute lymphocyte countOrd ered By: Danielle Niño on 08-04-2024 Lymphocytes Auto (Unsp spec) [#/Vol] 2.05 10*3/uL 0.83-4.51 [facility] Absolute neutrophil countOrd ered By: Danielle Niño on 08-04-2024 Neutrophils (Bld) [#/Vol] 4.1 10*3/uL 2.0-7.7 [facility] Anion gap in Serum or Plasma Ordered By: Danielle Niño on 08-04-2024 Anion gap [Moles/Vol] 12 mmol/L 5-15 [facility] Automated lymphocyte count a s percentage of total leukocytesOrdered By: Dainelle Niño on 08-04-2024 Lymphocytes/100 WBC Auto (Unsp spec) 28.3 % 19- [facility] BUN/creatinine ratioOrdered By: Danielle Niño on 08-04-2024 Urea nitrogen/Creatinine [Mass ratio] 17.9 mg/mg 10-20 [facility] Basophil percentageOrdered B y: Danielle Niño on 08-04-2024 Basophils/100 WBC (Bld) 1.0 % 0-1 [facility] Carbon dioxide, total [Moles /volume] in Central venous bloodOrdered By: Danielle Niño on 08-04-2024 CO2 [Moles/Vol] 24.3 mmol/L 21.0-32.0 [facility] Chloride assayOrdered By: Karen Niño on 08-04-2024 Chloride [Moles/Vol] 102 mmol/L 98-108 [facility] Eosinophil percentageOrdered By: Danielle Niño on 08-04-2024 Eosinophils/100 WBC (Bld) 3.2 % 0-5 [facility] Erythrocyte distribution wid th ratioOrdered By: Danielle Niño on 08-04-2024 Erythrocyte distribution width (RBC) [Ratio] 13.1 % 11.6-14.6 [facility] Erythrocyte distribution wid th standard deviationOrdered By: Danielle Niño on 08-04-2024 Erythrocyte distribution width (RBC) [Ratio] 40.9 fl 35.1-43.9 [facility] Glomerular filtration rate ( GFR) estimation/1.73 sq m using serum, plasma, or whole bOrdered By: Danielle Niño on 08-04-2024 GFR/1.73 sq M.predicted among non-blacks MDRD (S/P/Bld) [Vol rate/Area] 67 mL/min/{1.73_m2} >60 [facility] Comment on above: mL/min/1.73m2 CKD-EP I Creatinine Equation (2020) Hematocrit Auto (Bld) [Volum e fraction]Ordered By: Danielle Niño on 08-04-2024 Hematocrit (Bld) [Volume fraction] 44.6 % 40-54 [facility] Hemoglobin measurementOrdere d By: Danielle Niño on 08-04-2024 Hemoglobin (Bld) [Mass/Vol] 14.9 g/dL 13.0-16.5 [facility] Immature granulocytes/100 WB C Auto (Bld)Ordered By: Carlyelktonamanda Niño on 08-04-2024 Immature granulocytes/100 WBC (Bld) 0.400 % 0.0-0.9 [facility] Comment on above: IG% - Immature Granu locytes (promyelocytes, myelocytes and metamyelocytes) > 1% indicates that a LEFT SHIFT is Present. MCV (mean corpuscular volume ) determinationOrdered By: Danielle Niño on 08-04-2024 MCV (RBC) [Entitic vol] 84.5 fL 80-94 [facility] Mean corpuscular hemoglobin (MCH) determinationOrdered By: Danielle Niño on 08-04-2024 MCH (RBC) [Entitic mass] 28.2 pg 27.0-32.0 [facility] Mean corpuscular hemoglobin concentration (MCHC) determinationOrdered By: Danielle Niño on 08-04-2024 MCHC (RBC) [Mass/Vol] 33.4 g/dL 32-36 [facility] Mean platelet volume determi nationOrdered By: Danielle Niño on 08-04-2024 Platelet mean volume (Bld) [Entitic vol] 9.9 fL 6.2-12.0 [facility] Monocyte percentageOrdered B y: Danielle Niño on 08-04-2024 Monocytes/100 WBC (Bld) 10.8 % High 0-10 [facility] Neutrophil percentageOrdered By: Danielle Niño on 08-04-2024 Neutrophils/100 WBC (Bld) 56.3 % 47-70 [facility] Nucleated red blood cell per centageOrdered By: Danielle Niño on 08-04-2024 Nucleated RBC/100 WBC (Bld) [Ratio] 0 % 0-5 [facility] Platelet countOrdered By: Karen Niño on 08-04-2024 Platelets (Bld) [#/Vol] 229 10*3/uL 150-450 [facility] Potassium measurement (mass/ volume)Ordered By: Danielle Niño on 08-04-2024 Potassium (Unsp spec) [Mass/Vol] 4.5 mmol/L 3.3-5.1 [facility] RBC Auto (Bld) [#/Vol]Ordere d By: Danielle Niño on 08-04-2024 RBC (Bld) [#/Vol] 5.28 10*6/uL 4.6-6.2 [facility] Serum creatinine measurement (mass/volume)Ordered By: Danielle Niño on 08-04-2024 Creatinine [Mass/Vol] 1.09 mg/dL 0.70-1.20 [facility] Serum glucose measurement (m ass/volume)Ordered By: Danielle Niño on 08-04-2024 Glucose [Mass/Vol] 141 mg/dL High 70-99 [facility] Serum or plasma calcium adore urement (mass/volume)Ordered By: Danielle Niño on 08-04-2024 Calcium [Mass/Vol] 8.8 mg/dL 7.6-11.0 [facility] Serum or plasma urea nitroge n measurement (mass/volume)Ordered By: Danielle Niño on 08-04-2024 Urea nitrogen [Mass/Vol] 20 mg/dL High 4-19 [facility] Sodium levelOrdered By: Carly Niño on 08-04-2024 Sodium [Moles/Vol] 138 mmol/L 133-145 [facility] White blood cell (WBC) count Ordered By: Danielle Niño on 08-04-2024 WBC (Bld) [#/Vol] 7.3 10*3/uL 4.4-11.0 [facility] Absolute lymphocyte countOrd ered By: Carlyjuany Mirandastalin on 06-30-2024 Lymphocytes Auto (Unsp spec) [#/Vol] 1.98 10*3/uL 0.83-4.51 [facility] Absolute neutrophil countOrd ered By: Carlypenelopeamanda Palacioshilohstalin on 06-30-2024 Neutrophils (Bld) [#/Vol] 4.4 10*3/uL 2.0-7.7 [facility] Anion gap in Serum or Plasma Ordered By: Danielle Niño on 06-30-2024 Anion gap [Moles/Vol] 8 mmol/L 06-30 [facility] Automated lymphocyte count a s percentage of total leukocytesOrdered By: Danielle Niño on 06-30-2024 Lymphocytes/100 WBC Auto (Unsp spec) 26.4 % 19- [facility] BUN/creatinine ratioOrdered By: juan Palacioshilohstalin on 06-30-2024 Urea nitrogen/Creatinine [Mass ratio] 18.3 mg/mg 10-20 [facility] Basophil percentageOrdered B y: Carlypenelopeamanda Palacioshilohstalin on 06-30-2024 Basophils/100 WBC (Bld) 0.8 % 0-1 [facility] Carbon dioxide, total [Moles /volume] in Central venous bloodOrdered By: Danielle Niño on 06-30-2024 CO2 [Moles/Vol] 25.6 mmol/L 21.0-32.0 [facility] Chloride assayOrdered By: austinjuany Niño on 06-30-2024 Chloride [Moles/Vol] 103 mmol/L 98-108 [facility] Eosinophil percentageOrdered By: juan Niño on 06-30-2024 Eosinophils/100 WBC (Bld) 2.5 % 0-5 [facility] Erythrocyte distribution wid th ratioOrdered By: juan Niño on 06-30-2024 Erythrocyte distribution width (RBC) [Ratio] 13.1 % 11.6-14.6 [facility] Erythrocyte distribution wid th standard deviationOrdered By: Danielle Niño on 06-30-2024 Erythrocyte distribution width (RBC) [Ratio] 40.3 fl 35.1-43.9 [facility] Glomerular filtration rate ( GFR) estimation/1.73 sq m using serum, plasma, or whole bOrdered By: Danielle Niño on 06-30-2024 GFR/1.73 sq M.predicted among non-blacks MDRD (S/P/Bld) [Vol rate/Area] 72 mL/min/{1.73_m2} >60 [facility] Comment on above: mL/min/1.73m2 CKD-EP I Creatinine Equation (2020) Hematocrit Auto (Bld) [Volum e fraction]Ordered By: Danielle Niño on 06-30-2024 Hematocrit (Bld) [Volume fraction] 42.8 % 40-54 [facility] Hemoglobin measurementOrdere d By: Danielle Niño on 06-30-2024 Hemoglobin (Bld) [Mass/Vol] 14.3 g/dL 13.0-16.5 [facility] Immature granulocytes/100 WB C Auto (Bld)Ordered By: Danielle Niño 06-30-2024 Immature granulocytes/100 WBC (Bld) 0.300 % 0.0-0.9 [facility] Comment on above: IG% - Immature Granu locytes (promyelocytes, myelocytes and metamyelocytes) > 1% indicates that a LEFT SHIFT is Present. MCV (mean corpuscular volume ) determinationOrdered By: Danielle Niño on 06-30-2024 MCV (RBC) [Entitic vol] 84.4 fL 80-94 [facility] Mean corpuscular hemoglobin (MCH) determinationOrdered By: Danielle Niño 06-30-2024 MCH (RBC) [Entitic mass] 28.2 pg 27.0-32.0 [facility] Mean corpuscular hemoglobin concentration (MCHC) determinationOrdered By: Danielle Niño 06-30-2024 MCHC (RBC) [Mass/Vol] 33.4 g/dL 32-36 [facility] Mean platelet volume determi nationOrdered By: Danielle Niño on 06-30-2024 Platelet mean volume (Bld) [Entitic vol] 10.1 fL 6.2-12.0 [facility] Monocyte percentageOrdered B y: Carlypenelopeamanda Palacioshilohstalin on 06-30-2024 Monocytes/100 WBC (Bld) 11.9 % High 0-10 [facility] Neutrophil percentageOrdered By: Danielle Niño on 06-30-2024 Neutrophils/100 WBC (Bld) 58.1 % 47-70 [facility] Nucleated red blood cell per centageOrdered By: Danielle Niño on 06-30-2024 Nucleated RBC/100 WBC (Bld) [Ratio] 0 % 0-5 [facility] Platelet countOrdered By: Karen austinjuany Niño on 06-30-2024 Platelets (Bld) [#/Vol] 184 10*3/uL 150-450 [facility] Potassium measurement (mass/ volume)Ordered By: Danielle Niño on 06-30-2024 Potassium (Unsp spec) [Mass/Vol] 4.3 mmol/L 3.3-5.1 [facility] RBC Auto (Bld) [#/Vol]Ordere d By: Danielle Niño on 06-30-2024 RBC (Bld) [#/Vol] 5.07 10*6/uL 4.6-6.2 [facility] Serum creatinine measurement (mass/volume)Ordered By: Danielle Niño on 06-30-2024 Creatinine [Mass/Vol] 1.03 mg/dL 0.70-1.20 [facility] Serum glucose measurement (m ass/volume)Ordered By: Danielle Niño on 06-30-2024 Glucose [Mass/Vol] 130 mg/dL High 70-99 [facility] Serum or plasma calcium adore urement (mass/volume)Ordered By: Danielle Niño on 06-30-2024 Calcium [Mass/Vol] 8.6 mg/dL 7.6-11.0 [facility] Serum or plasma urea nitroge n measurement (mass/volume)Ordered By: Danielle Niño on 06-30-2024 Urea nitrogen [Mass/Vol] 19 mg/dL 4-19 [facility] Sodium levelOrdered By: Carly Niño on 06-30-2024 Sodium [Moles/Vol] 137 mmol/L 133-145 [facility] White blood cell (WBC) count Ordered By: Danielle Niño on 06-30-2024 WBC (Bld) [#/Vol] 7.5 10*3/uL 4.4-11.0 [facility] Absolute lymphocyte countOrd ered By: Danielle Niño on 06-02-2024 Lymphocytes Auto (Unsp spec) [#/Vol] 1.76 10*3/uL 0.83-4.51 [facility] Absolute neutrophil countOrd ered By: Danielle Niño on 06-02-2024 Neutrophils (Bld) [#/Vol] 4.5 10*3/uL 2.0-7.7 [facility] Anion gap in Serum or Plasma Ordered By: Danielle Niño on 06-02-2024 Anion gap [Moles/Vol] 11 mmol/L 5-15 [facility] Automated lymphocyte count a s percentage of total leukocytesOrdered By: Danielle Niño on 06-02-2024 Lymphocytes/100 WBC Auto (Unsp spec) 23.1 % 19-41 [facility] BUN/creatinine ratioOrdered By: Danielle Niño on 06-02-2024 Urea nitrogen/Creatinine [Mass ratio] 17.9 mg/mg 10-20 [facility] Basophil percentageOrdered B y: Danielle Niño on 06-02-2024 Basophils/100 WBC (Bld) 0.7 % 0-1 [facility] Bilirubin directOrdered By: Charlotteamanda Palacioshilohstalin on 06-02-2024 Bilirubin.direct [Mass/Vol] 0.29 mg/dL 0.00-0.30 [facility] Bilirubin, totalOrdered By: Karenjuan Palacioshilohstalin on 06-02-2024 Bilirubin [Mass/Vol] 0.77 mg/dL 0.00-1.30 [facility] Carbon dioxide, total [Moles /volume] in Central venous bloodOrdered By: Danielle Niño on 06-02-2024 CO2 [Moles/Vol] 24.4 mmol/L 21.0-32.0 [facility] Chloride assayOrdered By: Karen Niño on 06-02-2024 Chloride [Moles/Vol] 101 mmol/L 98-108 [facility] Eosinophil percentageOrdered By: Danielle Niño on 06-02-2024 Eosinophils/100 WBC (Bld) 2.5 % 0-5 [facility] Erythrocyte distribution wid th (RBC) [Ratio]Ordered By: Danielle Niño on 06-02-2024 Erythrocyte distribution width (RBC) [Entitic vol] 39.9 fL 35.1-43.9 [facility] Erythrocyte distribution wid th ratioOrdered By: Danielle Niño on 06-02-2024 Erythrocyte distribution width (RBC) [Ratio] 13.0 % 11.6-14.6 [facility] Erythrocyte distribution wid th standard deviationOrdered By: Danielle Niño on 06-02-2024 Erythrocyte distribution width (RBC) [Ratio] 39.9 fl 35.1-43.9 [facility] GFR/1.73 sq M.predicted venkata g non-blacks MDRD (S/P/Bld) [Vol rate/Area]Ordered By: Danielle Niño on 06-02-2024 Estimated GFR (MDRD) Non-Af Amer 79 >60 [facility] Comment on above: mL/min/1.73m2 CKD-EP I Creatinine Equation (2020) Glomerular filtration rate ( GFR) estimation/1.73 sq m using serum, plasma, or whole bOrdered By: Danielle Niño on 06-02-2024 GFR/1.73 sq M.predicted among non-blacks MDRD (S/P/Bld) [Vol rate/Area] 79 mL/min/{1.73_m2} >60 [facility] Comment on above: mL/min/1.73m2 CKD-EP I Creatinine Equation (2020) Hematocrit Auto (Bld) [Volum e fraction]Ordered By: Danielle Niño on 06-02-2024 Hematocrit (Bld) [Volume fraction] 42.2 % 40-54 [facility] Hemoglobin A1c percentageOrd ered By: Danielle Niño on 06-02-2024 HbA1c (Bld) [Mass fraction] 6.8 % High <5.7 [facility] Comment on above: Normal < 5.7 % Predi abetic 5.7 - 6.4 % Diabetic >or= 6.5 % Please note range changes. Hemoglobin measurementOrdere d By: Danielle Nñio on 06-02-2024 Hemoglobin (Bld) [Mass/Vol] 14.1 g/dL 13.0-16.5 [facility] Immature granulocytes/100 WB C Auto (Bld)Ordered By: Danielle Niño on 06-02-2024 Immature granulocytes/100 WBC (Bld) 0.300 % 0.0-0.9 [facility] Comment on above: IG% - Immature Granu locytes (promyelocytes, myelocytes and metamyelocytes) > 1% indicates that a LEFT SHIFT is Present. Laboratory - Chemistry and C hemistry - challengeOrdered By: Danielle Niño on 06-02-2024 AST [Catalytic activity/Vol] 22 U/L <38 [facility] Lymphocytes Auto (Unsp spec) [#/Vol]Ordered By: Danielle Niño on 06-02-2024 Lymphocytes (Bld) [#/Vol] 1.76 10*3/uL 0.83-4.5 1 [facility] Lymphocytes/100 WBC Auto (Un sp spec)Ordered By: Danielle Niño on 06-02-2024 Lymphocytes/100 WBC (Bld) 23.1 % 19-41 [facility] MCV (mean corpuscular volume ) determinationOrdered By: Danielle Niño on 06-02-2024 MCV (RBC) [Entitic vol] 84.6 fL 80-94 [facility] Mean corpuscular hemoglobin (MCH) determinationOrdered By: Danielle Niño on 06-02-2024 MCH (RBC) [Entitic mass] 28.3 pg 27.0-32.0 [facility] Mean corpuscular hemoglobin concentration (MCHC) determinationOrdered By: Danielle Niño on 06-02-2024 MCHC (RBC) [Mass/Vol] 33.4 g/dL 32-36 [facility] Mean platelet volume determi nationOrdered By: Danielle Hakeemshilohstalin on 06-02-2024 Platelet mean volume (Bld) [Entitic vol] 10.2 fL 6.2-12.0 [facility] Monocyte percentageOrdered B y: Karenkoleamanda Palacioshilohstalin on 06-02-2024 Monocytes/100 WBC (Bld) 14.2 % High 0-10 [facility] Neutrophil percentageOrdered By: Karenjuan Palacioshilohstalin on 06-02-2024 Neutrophils/100 WBC (Bld) 59.2 % 47-70 [facility] Nucleated red blood cell per centageOrdered By: Danielle Palacioshilohstalin on 06-02-2024 Nucleated RBC/100 WBC (Bld) [Ratio] 0 % 0-5 [facility] Platelet countOrdered By: Karen juan Hakeemshilohstalin on 06-02-2024 Platelets (Bld) [#/Vol] 214 10*3/uL 150-450 [facility] Potassium (Unsp spec) [Mass/ Vol]Ordered By: Danielle Palacioshilohstalin on 06-02-2024 Potassium [Moles/Vol] 4.0 mmol/L 3.3-5.1 [facility] Potassium measurement (mass/ volume)Ordered By: Danielle Palacioshilohstalin on 06-02-2024 Potassium (Unsp spec) [Mass/Vol] 4.0 mmol/L 3.3-5.1 [facility] RBC Auto (Bld) [#/Vol]Ordere d By: Karenkoleamanda Palacioshilohstalin on 06-02-2024 RBC (Bld) [#/Vol] 4.99 10*6/uL 4.6-6.2 [facility] Serum creatinine measurement (mass/volume)Ordered By: Danielle Palacioshilohstalin on 06-02-2024 Creatinine [Mass/Vol] 0.96 mg/dL 0.70-1.20 [facility] Serum globulin measurementOr dered By: Danielle Niño on 06-02-2024 Globulin (S) [Mass/Vol] 2.5 g/dL 2.2-4.2 [facility] Serum glucose measurement (m ass/volume)Ordered By: Danielle Niño on 06-02-2024 Glucose [Mass/Vol] 149 mg/dL High 70-99 [facility] Serum or plasma alanine chilel otransferase (ALT) measurementOrdered By: Danielle Niño on 06-02-2024 ALT [Catalytic activity/Vol] 12 U/L <47 [facility] Serum or plasma albumin adore urement (mass/volume)Ordered By: Danielle Niño on 06-02-2024 Albumin [Mass/Vol] 3.5 g/dL 3.4-4.8 [facility] Serum or plasma alkaline aruna sphatase measurementOrdered By: Danielle Niño on 06-02-2024 ALP [Catalytic activity/Vol] 53 U/L 40-129 [facility] Serum or plasma calcium adore urement (mass/volume)Ordered By: Danielle Niño on 06-02-2024 Calcium [Mass/Vol] 8.7 mg/dL 7.6-11.0 [facility] Serum or plasma urea nitroge n measurement (mass/volume)Ordered By: Danielle Niño on 06-02-2024 Urea nitrogen [Mass/Vol] 17 mg/dL 4-19 [facility] Sodium levelOrdered By: Carly Niño on 06-02-2024 Sodium [Moles/Vol] 137 mmol/L 133-145 [facility] Total proteinOrdered By: Pravin Niño on 06-02-2024 Protein [Mass/Vol] 6.0 g/dL 5.9-8.4 [facility] White blood cell (WBC) count Ordered By: Danielle Niño on 06-02-2024 WBC (Bld) [#/Vol] 7.6 10*3/uL 4.4-11.0 [facility] Absolute lymphocyte countOrd ered By: Danielle Niño on 05-05-2024 Lymphocytes Auto (Unsp spec) [#/Vol] 1.75 10*3/uL 0.83-4.51 [facility] Absolute neutrophil countOrd ered By: Danielle Niño on 05-05-2024 Neutrophils (Bld) [#/Vol] 4.3 10*3/uL 2.0-7.7 [facility] Anion gap in Serum or Plasma Ordered By: Danielle Niño on 05-05-2024 Anion gap [Moles/Vol] 10 mmol/L 5-15 [facility] Automated lymphocyte count a s percentage of total leukocytesOrdered By: Danielle Niño on 05-05-2024 Lymphocytes/100 WBC Auto (Unsp spec) 24.7 % 19- [facility] BUN/creatinine ratioOrdered By: Danielle Niño on 05-05-2024 Urea nitrogen/Creatinine [Mass ratio] 25.1 mg/mg High 10- [facility] Basophil percentageOrdered B y: Danielle Niño on 05-05-2024 Basophils/100 WBC (Bld) 0.7 % 0-1 [facility] Carbon dioxide, total [Moles /volume] in Central venous bloodOrdered By: Danielle Niño on 05-05-2024 CO2 [Moles/Vol] 24.1 mmol/L 21.0-32.0 [facility] Chloride assayOrdered By: Karen Niño on 05-05-2024 Chloride [Moles/Vol] 102 mmol/L 98-108 [facility] Eosinophil percentageOrdered By: Danielle Niño on 05-05-2024 Eosinophils/100 WBC (Bld) 2.5 % 0-5 [facility] Erythrocyte distribution wid th (RBC) [Ratio]Ordered By: Danielle Niño on 05-05-2024 Erythrocyte distribution width (RBC) [Entitic vol] 39.3 fL 35.1-43.9 [facility] Erythrocyte distribution wid th ratioOrdered By: Efaustinongbe Ruthe on 05-05-2024 Erythrocyte distribution width (RBC) [Ratio] 12.5 % 11.6-14.6 [facility] Erythrocyte distribution wid th standard deviationOrdered By: Danielle Niño on 05-05-2024 Erythrocyte distribution width (RBC) [Ratio] 39.3 fl 35.1-43.9 [facility] GFR/1.73 sq M.predicted venkata g non-blacks MDRD (S/P/Bld) [Vol rate/Area]Ordered By: Danielle Niño on 05-05-2024 Estimated GFR (MDRD) Non-Af Amer 77 >60 [facility] Comment on above: mL/min/1.73m2 CKD-EP I Creatinine Equation (2020) Glomerular filtration rate ( GFR) estimation/1.73 sq m using serum, plasma, or whole bOrdered By: Danielle Niño on 05-05-2024 GFR/1.73 sq M.predicted among non-blacks MDRD (S/P/Bld) [Vol rate/Area] 77 mL/min/{1.73_m2} >60 [facility] Comment on above: mL/min/1.73m2 CKD-EP I Creatinine Equation (2020) Hematocrit Auto (Bld) [Volum e fraction]Ordered By: Danielle Niño on 05-05-2024 Hematocrit (Bld) [Volume fraction] 41.0 % 40-54 [facility] Hemoglobin measurementOrdere d By: Danielle Niño on 05-05-2024 Hemoglobin (Bld) [Mass/Vol] 14.3 g/dL 13.0-16.5 [facility] Immature granulocytes/100 WB C Auto (Bld)Ordered By: Danielle Niño on 05-05-2024 Immature granulocytes/100 WBC (Bld) 0.300 % 0.0-0.9 [facility] Comment on above: IG% - Immature Granu locytes (promyelocytes, myelocytes and metamyelocytes) > 1% indicates that a LEFT SHIFT is Present. Lymphocytes Auto (Unsp spec) [#/Vol]Ordered By: Danielle Niño on 05-05-2024 Lymphocytes (Bld) [#/Vol] 1.75 10*3/uL 0.83-4.5 1 [facility] Lymphocytes/100 WBC Auto (Un sp spec)Ordered By: Danielle Niño on 05-05-2024 Lymphocytes/100 WBC (Bld) 24.7 % 19-41 [facility] MCV (mean corpuscular volume ) determinationOrdered By: Danielle Niño on 05-05-2024 MCV (RBC) [Entitic vol] 86.1 fL 80-94 [facility] Mean corpuscular hemoglobin (MCH) determinationOrdered By: Danielle Niño on 05-05-2024 MCH (RBC) [Entitic mass] 30.0 pg 27.0-32.0 [facility] Mean corpuscular hemoglobin concentration (MCHC) determinationOrdered By: Danielle Niño on 05-05-2024 MCHC (RBC) [Mass/Vol] 34.9 g/dL 32-36 [facility] Mean platelet volume determi nationOrdered By: Danielle Niño on 05-05-2024 Platelet mean volume (Bld) [Entitic vol] 10.0 fL 6.2-12.0 [facility] Monocyte percentageOrdered B y: Danielle Niño on 05-05-2024 Monocytes/100 WBC (Bld) 11.3 % High 0-10 [facility] Neutrophil percentageOrdered By: Danielle Niño on 05-05-2024 Neutrophils/100 WBC (Bld) 60.5 % 47-70 [facility] Nucleated red blood cell per centageOrdered By: Danielle Niño on 05-05-2024 Nucleated RBC/100 WBC (Bld) [Ratio] 0 % 0-5 [facility] Platelet countOrdered By: Karen Niño on 05-05-2024 Platelets (Bld) [#/Vol] 174 10*3/uL 150-450 [facility] Potassium (Unsp spec) [Mass/ Vol]Ordered By: Danielle Niño on 05-05-2024 Potassium [Moles/Vol] 4.0 mmol/L 3.3-5.1 [facility] Potassium measurement (mass/ volume)Ordered By: Danielle Niño on 05-05-2024 Potassium (Unsp spec) [Mass/Vol] 4.0 mmol/L 3.3-5.1 [facility] RBC Auto (Bld) [#/Vol]Ordere d By: Danielle Niño on 05-05-2024 RBC (Bld) [#/Vol] 4.76 10*6/uL 4.6-6.2 [facility] Serum creatinine measurement (mass/volume)Ordered By: Danielle Niño on 05-05-2024 Creatinine [Mass/Vol] 0.98 mg/dL 0.70-1.20 [facility] Serum glucose measurement (m ass/volume)Ordered By: Danielle Niño on 05-05-2024 Glucose [Mass/Vol] 116 mg/dL High 70-99 [facility] Serum or plasma calcium adore urement (mass/volume)Ordered By: Danielle Niño on 05-05-2024 Calcium [Mass/Vol] 8.2 mg/dL 7.6-11.0 [facility] Serum or plasma urea nitroge n measurement (mass/volume)Ordered By: Danielle Niño on 05-05-2024 Urea nitrogen [Mass/Vol] 25 mg/dL High 4-19 [facility] Sodium levelOrdered By: Carly Niño on 05-05-2024 Sodium [Moles/Vol] 137 mmol/L 133-145 [facility] White blood cell (WBC) count Ordered By: Danielle Niño on 05-05-2024 WBC (Bld) [#/Vol] 7.1 10*3/uL 4.4-11.0 [facility] Absolute lymphocyte countOrd ered By: Danielle Niño on 04-07-2024 Lymphocytes Auto (Unsp spec) [#/Vol] 1.79 10*3/uL 0.83-4.51 [facility] Absolute neutrophil countOrd ered By: Danielle Niño on 04-07-2024 Neutrophils (Bld) [#/Vol] 3.9 10*3/uL 2.0-7.7 [facility] Automated lymphocyte count a s percentage of total leukocytesOrdered By: Danielle Niño on 04-07-2024 Lymphocytes/100 WBC Auto (Unsp spec) 27.1 % 19-41 [facility] Basophil percentageOrdered B y: Danielle Niño on 04-07-2024 Basophils/100 WBC (Bld) 0.9 % 0-1 [facility] Blood urea nitrogen (BUN)/cr eatinine ratioOrdered By: Danielle Niño on 04-07-2024 Urea nitrogen/Creatinine [Mass ratio] 19.8 mg/mg 10- [facility] Carbon dioxide measurementOr dered By: Danielle Niño on 04-07-2024 CO2 [Moles/Vol] 28.0 mmol/L 21.0-32.0 [facility] Chloride measurementOrdered By: Danielle Niño on 04-07-2024 Chloride [Moles/Vol] 104 mmol/L 98-107 [facility] Eosinophil percentageOrdered By: Danielle Niño on 04-07-2024 Eosinophils/100 WBC (Bld) 2.3 % 0-5 [facility] Erythrocyte distribution wid th (RBC) [Ratio]Ordered By: Danielle Niño on 04-07-2024 Erythrocyte distribution width (RBC) [Entitic vol] 38.6 fL 35.1-43.9 [facility] Erythrocyte distribution wid th ratioOrdered By: Danielle Nioñ on 04-07-2024 Erythrocyte distribution width (RBC) [Ratio] 12.1 % 11.6-14.6 [facility] Erythrocyte distribution wid th standard deviationOrdered By: Carlyelktonamanda Niño on 04-07-2024 Erythrocyte distribution width (RBC) [Ratio] 38.6 fl 35.1-43.9 [facility] Estimated glomerular filtrat ion rate (GFR) AmericanOrdered By: Danielle Niño on 04-07-2024 Estimated GFR (MDRD) Amer 81 mL/min >60 [facility] Comment on above: GFR Calc Glomerular filtration rate ( GFR) estimationOrdered By: Danielle Niño on 04-07-2024 Estimated GFR (MDRD) Non-Af Amer 67 mL/min >60 [facility] Comment on above: Non- GFR Calc GFR/1.73 sq M.predicted among non-blacks MDRD (S/P/Bld) [Vol rate/Area] 67 mL/min/{1.73_m2} >60 [facility] Comment on above: Non- GFR Calc Glucose measurementOrdered B y: Charlotteamanda Palaciojacqui on 04-07-2024 Glucose [Mass/Vol] 117 mg/dL High 74-106 [facility] Comment on above: Fasting Glucose resu lt from 100 to 125 mg/dL suggests IMPAIRED HOMEOSTASIS per A.D.A. criteria. Hematocrit Auto (Bld) [Volum e fraction]Ordered By: Danielle Niño on 04-07-2024 Hematocrit (Bld) [Volume fraction] 42.7 % 40-54 [facility] Hemoglobin measurementOrdere d By: Danielle Niño on 04-07-2024 Hemoglobin (Bld) [Mass/Vol] 13.9 g/dL 13.0-16.5 [facility] Immature granulocytes/100 WB C Auto (Bld)Ordered By: Danielle Niño on 04-07-2024 Immature granulocytes/100 WBC (Bld) 0.500 % 0.0-0.9 [facility] Comment on above: IG% - Immature Granu locytes (promyelocytes, myelocytes and metamyelocytes) > 1% indicates that a LEFT SHIFT is Present. Lymphocytes Auto (Unsp spec) [#/Vol]Ordered By: Danielle Niño on 04-07-2024 Lymphocytes (Bld) [#/Vol] 1.79 10*3/uL 0.83-4.5 1 [facility] Lymphocytes/100 WBC Auto (Un sp spec)Ordered By: Danielle Niño on 04-07-2024 Lymphocytes/100 WBC (Bld) 27.1 % 19-41 [facility] MCV (mean corpuscular volume ) determinationOrdered By: Danielle Niño on 04-07-2024 MCV (RBC) [Entitic vol] 88.2 fL 80-94 [facility] Mean corpuscular hemoglobin (MCH) determinationOrdered By: Danielle Niño on 04-07-2024 MCH (RBC) [Entitic mass] 28.7 pg 27.0-32.0 [facility] Mean corpuscular hemoglobin concentration (MCHC) determinationOrdered By: Danielle Niño on 04-07-2024 MCHC (RBC) [Mass/Vol] 32.6 g/dL 32-36 [facility] Mean platelet volume determi nationOrdered By: Danielle Niño on 04-07-2024 Platelet mean volume (Bld) [Entitic vol] 10.4 fL 6.2-12.0 [facility] Monocyte percentageOrdered B y: Danielle Niño on 04-07-2024 Monocytes/100 WBC (Bld) 11.0 % High 0-10 [facility] Neutrophil percentageOrdered By: Danielle Niño on 04-07-2024 Neutrophils/100 WBC (Bld) 58.2 % 47-70 [facility] Nucleated red blood cell per centageOrdered By: Danielle Niño on 04-07-2024 Nucleated RBC/100 WBC (Bld) [Ratio] 0 % 0-5 [facility] Platelet countOrdered By: Karen Niño on 04-07-2024 Platelets (Bld) [#/Vol] 228 10*3/uL 150-450 [facility] Potassium measurementOrdered By: Danielle Niño on 04-07-2024 Potassium [Moles/Vol] 4.0 mmol/L 3.5-5.1 [facility] RBC Auto (Bld) [#/Vol]Ordere d By: Danielle Niño on 04-07-2024 RBC (Bld) [#/Vol] 4.84 10*6/uL 4.6-6.2 [facility] Serum anion gap measurementO rdered By: Danielle Niño on 04-07-2024 Anion gap [Moles/Vol] 6 mmol/L 5-15 [facility] Serum or plasma calcium adore urement (mass/volume)Ordered By: Danielle Niño on 04-07-2024 Calcium [Mass/Vol] 8.8 mg/dL 8.5-10.1 [facility] Serum or plasma creatinine m easurement (mass/volume)Ordered By: Danielle Niño on 04-07-2024 Creatinine [Mass/Vol] 1.11 mg/dL 0.70-1.30 [facility] Comment on above: The validity of the calculated GFR & GFRAA in patients over 70 years has not been determined. Clinical correlation is essential. Serum or plasma urea nitroge n measurement (mass/volume)Ordered By: Danielle Niño on 04-07-2024 Urea nitrogen [Mass/Vol] 22 mg/dL High 7-18 [facility] Sodium levelOrdered By: Carly chesterlindastalin Niño on 04-07-2024 Sodium [Moles/Vol] 138 mmol/L 136-145 [facility] White blood cell (WBC) count Ordered By: Danielle Niño on 04-07-2024 WBC (Bld) [#/Vol] 6.6 10*3/uL 4.4-11.0 [facility] Absolute lymphocyte countOrd ered By: Danielle Niño on 03-03-2024 Lymphocytes Auto (Unsp spec) [#/Vol] 2.15 10*3/uL 0.83-4.51 [facility] Absolute neutrophil countOrd ered By: Danielle Niño on 03-03-2024 Neutrophils (Bld) [#/Vol] 4.2 10*3/uL 2.0-7.7 [facility] Automated lymphocyte count a s percentage of total leukocytesOrdered By: Danielle Niño on 03-03-2024 Lymphocytes/100 WBC Auto (Unsp spec) 28.7 % 19-41 [facility] Basophil percentageOrdered B y: Danielle Niño on 03-03-2024 Basophils/100 WBC (Bld) 0.8 % 0-1 [facility] Bilirubin directOrdered By: Danielle Niño on 03-03-2024 Bilirubin.direct [Mass/Vol] 0.15 mg/dL 0.00-0.30 [facility] Bilirubin, totalOrdered By: Danielle Niño on 03-03-2024 Bilirubin [Mass/Vol] 0.50 mg/dL 0.20-1.00 [facility] Comment on above: For patients on eltr ombopag therapy, use of Dimension [employer]herty TBIL is not recommended. Blood urea nitrogen (BUN)/cr eatinine ratioOrdered By: Danielle Niño on 03-03-2024 Urea nitrogen/Creatinine [Mass ratio] 18.5 mg/mg 10-20 [facility] Carbon dioxide measurementOr dered By: Danielle Niño on 03-03-2024 CO2 [Moles/Vol] 30.0 mmol/L 21.0-32.0 [facility] Chloride measurementOrdered By: Danielle Niño on 03-03-2024 Chloride [Moles/Vol] 105 mmol/L 98-107 [facility] Eosinophil percentageOrdered By: Danielle Niño on 03-03-2024 Eosinophils/100 WBC (Bld) 3.2 % 0-5 [facility] Erythrocyte distribution wid th (RBC) [Ratio]Ordered By: Danielle Niño on 03-03-2024 Erythrocyte distribution width (RBC) [Entitic vol] 40.5 fL 35.1-43.9 [facility] Erythrocyte distribution wid th ratioOrdered By: Danielle Niño on 03-03-2024 Erythrocyte distribution width (RBC) [Ratio] 12.3 % 11.6-14.6 [facility] Erythrocyte distribution wid th standard deviationOrdered By: Danielle Niño on 03-03-2024 Erythrocyte distribution width (RBC) [Ratio] 40.5 fl 35.1-43.9 [facility] Estimated glomerular filtrat ion rate (GFR) AmericanOrdered By: Danielle Niño on 03-03-2024 Estimated GFR (MDRD) Amer 84 mL/min >60 [facility] Comment on above: GFR Calc Glomerular filtration rate ( GFR) estimationOrdered By: Danielle Niño on 03-03-2024 Estimated GFR (MDRD) Non-Af Amer 69 mL/min >60 [facility] Comment on above: Non- GFR Calc GFR/1.73 sq M.predicted among non-blacks MDRD (S/P/Bld) [Vol rate/Area] 69 mL/min/{1.73_m2} >60 [facility] Comment on above: Non- GFR Calc Glucose measurementOrdered B y: Danielle Niño on 03-03-2024 Glucose [Mass/Vol] 135 mg/dL High 74-106 [facility] Comment on above: Fasting Glucose resu lt greater than or equal to 126 mg/dL suggests DIABETES MELLITUS per A.D.A. criteria. Hematocrit Auto (Bld) [Volum e fraction]Ordered By: Danielle Niño on 03-03-2024 Hematocrit (Bld) [Volume fraction] 42.8 % 40-54 [facility] Hemoglobin A1c percentageOrd ered By: Danielle Niño on 03-03-2024 HbA1c (Bld) [Mass fraction] 6.4 % High 3.8-5.6 [facility] Comment on above: Normal < 5.7 % Predi abetic 5.7 - 6.4 % Diabetic >or= 6.5 % Please note range changes. Hemoglobin measurementOrdere d By: Danielle Niño on 03-03-2024 Hemoglobin (Bld) [Mass/Vol] 14.2 g/dL 13.0-16.5 [facility] Immature granulocytes/100 WB C Auto (Bld)Ordered By: Danielle Niño on 03-03-2024 Immature granulocytes/100 WBC (Bld) 0.400 % 0.0-0.9 [facility] Comment on above: IG% - Immature Granu locytes (promyelocytes, myelocytes and metamyelocytes) > 1% indicates that a LEFT SHIFT is Present. Laboratory - Chemistry and C hemistry - challengeOrdered By: Danielle Niño on 03-03-2024 AST [Catalytic activity/Vol] 17 U/L 15-37 [facility] Lymphocytes Auto (Unsp spec) [#/Vol]Ordered By: Danielle Niño on 03-03-2024 Lymphocytes (Bld) [#/Vol] 2.15 10*3/uL 0.83-4.5 1 [facility] Lymphocytes/100 WBC Auto (Un sp spec)Ordered By: Danielle Niño on 03-03-2024 Lymphocytes/100 WBC (Bld) 28.7 % 19-41 [facility] MCV (mean corpuscular volume ) determinationOrdered By: Danielle Niño on 03-03-2024 MCV (RBC) [Entitic vol] 89.5 fL 80-94 [facility] Mean corpuscular hemoglobin (MCH) determinationOrdered By: Danielle Niño on 03-03-2024 MCH (RBC) [Entitic mass] 29.7 pg 27.0-32.0 [facility] Mean corpuscular hemoglobin concentration (MCHC) determinationOrdered By: Danielle Niño on 03-03-2024 MCHC (RBC) [Mass/Vol] 33.2 g/dL 32-36 [facility] Mean platelet volume determi nationOrdered By: Danielle Niño on 03-03-2024 Platelet mean volume (Bld) [Entitic vol] 10.0 fL 6.2-12.0 [facility] Monocyte percentageOrdered B y: Danielle Niño on 03-03-2024 Monocytes/100 WBC (Bld) 10.3 % High 0-10 [facility] Neutrophil percentageOrdered By: Danielle Niño on 03-03-2024 Neutrophils/100 WBC (Bld) 56.6 % 47-70 [facility] Nucleated red blood cell per centageOrdered By: Danielle Niño on 03-03-2024 Nucleated RBC/100 WBC (Bld) [Ratio] 0 % 0-5 [facility] Platelet countOrdered By: Karen Niño on 03-03-2024 Platelets (Bld) [#/Vol] 199 10*3/uL 150-450 [facility] Potassium measurementOrdered By: Danielle Niño on 03-03-2024 Potassium [Moles/Vol] 4.3 mmol/L 3.5-5.1 [facility] RBC Auto (Bld) [#/Vol]Ordere d By: Danilele Niño on 03-03-2024 RBC (Bld) [#/Vol] 4.78 10*6/uL 4.6-6.2 [facility] Serum anion gap measurementO rdered By: Danielle Niño on 03-03-2024 Anion gap [Moles/Vol] 2 mmol/L Low 5-15 [facility] Serum globulin measurementOr dered By: Danielle Niño on 03-03-2024 Globulin (S) [Mass/Vol] 2.9 g/dL 2.2-4.2 [facility] Serum or plasma alanine chilel otransferase (ALT) measurementOrdered By: Danielle Niño on 03-03-2024 ALT [Catalytic activity/Vol] 20 U/L 16-61 [facility] Serum or plasma albumin adore urement (mass/volume)Ordered By: Danielle Palacioshilohstalin 03-03-2024 Albumin [Mass/Vol] 3.2 g/dL 3.2-5.0 [facility] Serum or plasma alkaline aruna sphatase measurementOrdered By: Karenpenelopeamanda Palacioshilohstalin 03-03-2024 ALP [Catalytic activity/Vol] 45 U/L 45-117 [facility] Serum or plasma calcium adore urement (mass/volume)Ordered By: Danielle Palacioshilohstalin 03-03-2024 Calcium [Mass/Vol] 8.7 mg/dL 8.5-10.1 [facility] Serum or plasma creatinine m easurement (mass/volume)Ordered By: Carlypenelopeamanda Niño 03-03-2024 Creatinine [Mass/Vol] 1.08 mg/dL 0.70-1.30 [facility] Comment on above: The validity of the calculated GFR & GFRAA in patients over 70 years has not been determined. Clinical correlation is essential. Serum or plasma urea nitroge n measurement (mass/volume)Ordered By: Danielle Niño 03-03-2024 Urea nitrogen [Mass/Vol] 20 mg/dL High 7-18 [facility] Sodium levelOrdered By: Carly juany Renay 03-03-2024 Sodium [Moles/Vol] 138 mmol/L 136-145 [facility] Total proteinOrdered By: Pravin mekhiamanda Palacioshilohstalin 03-03-2024 Protein [Mass/Vol] 6.1 g/dL Low 6.4-8.2 [facility] White blood cell (WBC) count Ordered By: Danielle Niño 03-03-2024 WBC (Bld) [#/Vol] 7.5 10*3/uL 4.4-11.0 [facility] Absolute neutrophil countOrd ered By: Danielle Niño on 02-04-2024 Neutrophils (Bld) [#/Vol] 3.4 10*3/uL 2.0-7.7 [facility] Basophil percentageOrdered B y: Danielle Niño on 02-04-2024 Basophils/100 WBC (Bld) 1.1 % High 0-1 [facility] Blood urea nitrogen (BUN)/cr eatinine ratioOrdered By: Danielle Niño on 02-04-2024 Urea nitrogen/Creatinine [Mass ratio] 19.3 mg/mg 10-20 [facility] Carbon dioxide measurementOr dered By: Danielle Niño on 02-04-2024 CO2 [Moles/Vol] 28.0 mmol/L 21.0-32.0 [facility] Chloride measurementOrdered By: Carlyelktonamanda Niño on 02-04-2024 Chloride [Moles/Vol] 107 mmol/L 98-107 [facility] Eosinophil percentageOrdered By: Danielle Niño on 02-04-2024 Eosinophils/100 WBC (Bld) 4.7 % 0-5 [facility] Erythrocyte distribution wid th (RBC) [Ratio]Ordered By: Danielle Niño on 02-04-2024 Erythrocyte distribution width (RBC) [Entitic vol] 42.7 fL 35.1-43.9 [facility] Erythrocyte distribution wid th ratioOrdered By: Danielle Niño on 02-04-2024 Erythrocyte distribution width (RBC) [Ratio] 12.9 % 11.6-14.6 [facility] Estimated glomerular filtrat ion rate (GFR) AmericanOrdered By: Danielle Niño on 02-04-2024 Estimated GFR (MDRD) Amer 83 mL/min >60 [facility] Comment on above: GFR Calc Glomerular filtration rate ( GFR) estimationOrdered By: Danielle Niño on 02-04-2024 Estimated GFR (MDRD) Non-Af Amer 69 mL/min >60 [facility] Comment on above: Non- GFR Calc Glucose measurementOrdered B y: Danielle Niño on 02-04-2024 Glucose [Mass/Vol] 124 mg/dL High 74-106 [facility] Comment on above: Fasting Glucose resu lt from 100 to 125 mg/dL suggests IMPAIRED HOMEOSTASIS per A.D.A. criteria. Hematocrit Auto (Bld) [Volum e fraction]Ordered By: Danielle Niño on 02-04-2024 Hematocrit (Bld) [Volume fraction] 38.0 % Low 40-54 [facility] Hemoglobin measurementOrdere d By: Karenaustinpenelopeamanda Palacioshilohstalin on 02-04-2024 Hemoglobin (Bld) [Mass/Vol] 12.6 g/dL Low 13.0-16.5 [facility] Immature granulocytes/100 WB C Auto (Bld)Ordered By: Danielle Niño on 02-04-2024 Immature granulocytes/100 WBC (Bld) 0.300 % 0.0-0.9 [facility] Comment on above: IG% - Immature Granu locytes (promyelocytes, myelocytes and metamyelocytes) > 1% indicates that a LEFT SHIFT is Present. Lymphocytes Auto (Unsp spec) [#/Vol]Ordered By: Danielle Niño on 02-04-2024 Lymphocytes (Bld) [#/Vol] 1.85 10*3/uL 0.83-4.5 1 [facility] Lymphocytes/100 WBC Auto (Un sp spec)Ordered By: Danielle Palacioshilohstalin on 02-04-2024 Lymphocytes/100 WBC (Bld) 29.2 % 19-41 [facility] MCV (mean corpuscular volume ) determinationOrdered By: Danielle Niño on 02-04-2024 MCV (RBC) [Entitic vol] 89.6 fL 80-94 [facility] Mean corpuscular hemoglobin (MCH) determinationOrdered By: Danielle Niño on 02-04-2024 MCH (RBC) [Entitic mass] 29.7 pg 27.0-32.0 [facility] Mean corpuscular hemoglobin concentration (MCHC) determinationOrdered By: Danielle Niño on 02-04-2024 MCHC (RBC) [Mass/Vol] 33.2 g/dL 32-36 [facility] Mean platelet volume determi nationOrdered By: Karenaustinpenelopeamanda Palacioshilohstalin on 02-04-2024 Platelet mean volume (Bld) [Entitic vol] 9.8 fL 6.2-12.0 [facility] Monocyte percentageOrdered B y: Danielle Niño on 02-04-2024 Monocytes/100 WBC (Bld) 11.4 % High 0-10 [facility] Neutrophil percentageOrdered By: Charlotteamanda Palacioshilohstalin on 02-04-2024 Neutrophils/100 WBC (Bld) 53.3 % 47-70 [facility] Nucleated red blood cell per centageOrdered By: Karenaustinelktonamanda Hakeemshilohstalin on 02-04-2024 Nucleated RBC/100 WBC (Bld) [Ratio] 0 % 0-5 [facility] Platelet countOrdered By: Karen juan Hakeemshilohstalin on 02-04-2024 Platelets (Bld) [#/Vol] 180 10*3/uL 150-450 [facility] Potassium measurementOrdered By: Karenaustinpenelopeamanda Palacioshilohstalin on 02-04-2024 Potassium [Moles/Vol] 4.2 mmol/L 3.5-5.1 [facility] RBC Auto (Bld) [#/Vol]Ordere d By: Danielle Hakeemjacqui on 02-04-2024 RBC (Bld) [#/Vol] 4.24 10*6/uL Low 4.6-6.2 [facility] Serum anion gap measurementO rdered By: Charlotteamanda Palacioshilohstalin on 02-04-2024 Anion gap [Moles/Vol] 3 mmol/L Low 5-15 [facility] Serum or plasma calcium adore urement (mass/volume)Ordered By: Danielle Niño on 02-04-2024 Calcium [Mass/Vol] 8.1 mg/dL Low 8.5-10.1 [facility] Serum or plasma creatinine m easurement (mass/volume)Ordered By: Karenjuan Niño on 02-04-2024 Creatinine [Mass/Vol] 1.09 mg/dL 0.70-1.30 [facility] Comment on above: The validity of the calculated GFR & GFRAA in patients over 70 years has not been determined. Clinical correlation is essential. Serum or plasma urea nitroge n measurement (mass/volume)Ordered By: Carlyjuany Palaciojacqui on 02-04-2024 Urea nitrogen [Mass/Vol] 21 mg/dL High 7-18 [facility] Sodium levelOrdered By: Carly Niño on 02-04-2024 Sodium [Moles/Vol] 138 mmol/L 136-145 [facility] White blood cell (WBC) count Ordered By: Danielle Niño on 02-04-2024 WBC (Bld) [#/Vol] 6.3 10*3/uL 4.4-11.0 [facility] Absolute lymphocyte countOrd ered By: Chele Autumn on 04-21-2023 Lymphocytes Auto (Unsp spec) [#/Vol] 1.74 10*3/uL 0.83-4.51 [facility] Automated lymphocyte count a s percentage of total leukocytesOrdered By: Chele Leyva on 04-21-2023 Lymphocytes/100 WBC Auto (Unsp spec) 25.9 % 19-41 [facility] Basophil percentageOrdered B y: Chele Leyva on 04-21-2023 Basophils/100 WBC (Bld) 0.9 % 0-1 [facility] Bilirubin [Mass/Vol] 0.70 mg/dL 0.20-1.00 [facility] Comment on above: For patients on eltr ombopag therapy, use of Dimension Dougherty TBIL is not recommended. Chloride [Moles/Vol] 106 mmol/L 98-107 [facility] Cholesterol [Mass/Vol] 195 mg/dL <200 [facility] Comment on above: <200 mg/dL Desirable 200-240 mg/dL Borderline >240 mg/dL High Risk Eosinophils/100 WBC (Bld) 3.0 % 0-5 [facility] Glucose [Mass/Vol] 156 mg/dL 74-106 [facility] Comment on above: Fasting Glucose resu lt greater than or equal to 126 mg/dL suggests DIABETES MELLITUS per A.D.A. criteria. Hemoglobin (Bld) [Mass/Vol] 14.5 g/dL 13.0-16.5 [facility] Monocytes/100 WBC (Bld) 8.9 % 0-10 [facility] Neutrophils (Bld) [#/Vol] 4.1 10*3/uL 2.0-7.7 [facility] Neutrophils/100 WBC (Bld) 60.9 % 47-70 [facility] Potassium [Moles/Vol] 3.9 mmol/L 3.5-5.1 [facility] Protein [Mass/Vol] 6.3 g/dL 6.4-8.2 [facility] Sodium [Moles/Vol] 141 mmol/L 136-145 [facility] Triglyceride [Mass/Vol] 112 mg/dL <199 [facility] Comment on above: The drugs N-Acetylcy steine and Metamizole may falsely depress this assay.Serum Triglycerides Reference Interval Normal <150 mg/dL Borderline high 150 - 199 mg/dL High 200 - 499 mg/dL Very High > or = 500 mg/dL WBC (Bld) [#/Vol] 6.7 10*3/uL 4.4-11.0 [facility] Determination of erythrocyte mean corpuscular volume (MCV)Ordered By: Chele Leyva on 04-21-2023 MCV (RBC) [Entitic vol] 87.1 fL 80-94 [facility] Erythrocyte distribution wid th ratioOrdered By: Chele Leyva on 04-21-2023 Erythrocyte distribution width (RBC) [Ratio] 13.8 % 11.6-14.6 [facility] Erythrocyte distribution wid th standard deviationOrdered By: Chele Leyva on 04-21-2023 Erythrocyte distribution width (RBC) [Entitic vol] 44.2 fL 35.1-43.9 [facility] Hematocrit Auto (Bld) [Volum e fraction]Ordered By: Chele Leyva on 04-21-2023 Hematocrit (Bld) [Volume fraction] 45.3 % 40-54 [facility] Immature granulocytes/100 WB C Auto (Bld)Ordered By: Chele Leyva on 04-21-2023 Immature granulocytes/100 WBC (Bld) 0.400 % 0.0-0.9 [facility] Comment on above: IG% - Immature Granu locytes (promyelocytes, myelocytes and metamyelocytes) > 1% indicates that a LEFT SHIFT is Present. Laboratory - Chemistry and C hemistry - challengeOrdered By: Chele Leyva on 04-21-2023 Albumin/Globulin [Mass ratio] 1.1 {ratio} 0.9-2.4 [facility] ALP [Catalytic activity/Vol] 59 U/L 45-117 [facility] ALT [Catalytic activity/Vol] 28 U/L 16-61 [facility] Cholesterol in HDL [Mass/Vol] 42 mg/dL >40 [facility] Comment on above: The drugs N-Acetylcy steine and Metamizole may falsely depress this assay. Reference Range HDL <40 mg/dL Low HDL Cholesterol HDL >or= 60 mg/dL High HDL Cholesterol Cholesterol in LDL [Mass/Vol] 131 mg/dL 0-130 [facility] CO2 [Moles/Vol] 29.0 mmol/L 21.0-32.0 [facility] Globulin (S) [Mass/Vol] 3.0 g/dL 2.2-4.2 [facility] Urea nitrogen/Creatinine [Mass ratio] 25.2 mg/mg 10-20 [facility] Laboratory - Hematology and Cell countsOrdered By: Chele Leyva on 04-21-2023 MCH (RBC) [Entitic mass] 27.9 pg 27.0-32.0 [facility] MCHC (RBC) [Mass/Vol] 32.0 g/dL 32-36 [facility] Nucleated RBC/100 WBC (Bld) [Ratio] 0 % 0-5 [facility] Platelet mean volume (Bld) [Entitic vol] 9.8 fL 6.2-12.0 [facility] Platelets (Bld) [#/Vol] 233 10*3/uL 150-450 [facility] No Panel InformationOrdered By: Chele Leyva on 04-21-2023 Estimated GFR (MDRD) Amer 89 mL/min >60 [facility] Comment on above: GFR Calc Estimated GFR (MDRD) Non-Af Amer 74 mL/min >60 [facility] Comment on above: Non- GFR Calc VLDL Cholesterol 22 mg/dL 5-40 [facility] RBC Auto (Bld) [#/Vol]Ordere d By: Chele Leyva on 04-21-2023 RBC (Bld) [#/Vol] 5.20 10*6/uL 4.6-6.2 [facility] Serum or plasma calcium adore urement (mass/volume)Ordered By: Chele Leyva on 04-21-2023 Calcium [Mass/Vol] 8.7 mg/dL 8.5-10.1 [facility] Serum or plasma creatinine m easurement (mass/volume)Ordered By: Chele Leyva on 04-21-2023 Creatinine [Mass/Vol] 1.03 mg/dL 0.70-1.30 [facility] Comment on above: The validity of the calculated GFR & GFRAA in patients over 70 years has not been determined. Clinical correlation is essential. Serum or plasma urea nitroge n measurement (mass/volume)Ordered By: Chele Leyva on 04-21-2023 Urea nitrogen [Mass/Vol] 26 mg/dL 7-18 [facility] Thin prep Papanicolaou smear with manual screeningOrdered By: Chele Leyva on 04-21-2023 Thin prep Papanicolaou smear with manual screening 3.3 g/dL 3.2-5.0 [facility] Thin prep Papanicolaou smear with manual screening 22 U/L 15-37 [facility] Thin prep Papanicolaou smear with manual screening 6 5-15 [facility] Whole blood hemoglobin A1c/t otal hemoglobin ratio (mass fraction)Ordered By: Chele Leyva on 04-21-2023 HbA1c (Bld) [Mass fraction] 6.9 % 3.8-5.6 [facility] Comment on above: Normal < 5.7 % Predi abetic 5.7 - 6.4 % Diabetic >or= 6.5 % Please note range changes. Basophil percentageOrdered B y: Chele Leyva on 10-14-2022 Cholesterol [Mass/Vol] 208 mg/dL <200 [facility] Comment on above: <200 mg/dL Desirable 200-240 mg/dL Borderline >240 mg/dL High Risk Triglyceride [Mass/Vol] 82 mg/dL <199 [facility] Comment on above: The drugs N-Acetylcy steine and Metamizole may falsely depress this assay.Serum Triglycerides Reference Interval Normal <150 mg/dL Borderline high 150 - 199 mg/dL High 200 - 499 mg/dL Very High > or = 500 mg/dL Serum or plasma cholesterol in HDL measurement (mass/volume)Ordered By: Chele Leyva on 10-14-2022 Cholesterol in HDL [Mass/Vol] 46 mg/dL >40 [facility] Comment on above: The drugs N-Acetylcy steine and Metamizole may falsely depress this assay. Reference Range HDL <40 mg/dL Low HDL Cholesterol HDL >or= 60 mg/dL High HDL Cholesterol Serum or plasma cholesterol in VLDL measurement (mass/volume)Ordered By: Chele Leyva on 10-14-2022 Cholesterol in VLDL [Mass/Vol] 16 mg/dL 5-40 [facility] Serum or plasma low density lipoprotein (LDL) cholesterol measurement (mass/volume)Ordered By: Chele Leyva on 10-14-2022 Cholesterol in LDL [Mass/Vol] 146 mg/dL 0-130 [facility] Whole blood hemoglobin A1c/t otal hemoglobin ratio (mass fraction)Ordered By: Chele Leyva on 10-14-2022 HbA1c (Bld) [Mass fraction] 6.9 % 3.8-5.6 [facility] Comment on above: Normal < 5.7 % Predi abetic 5.7 - 6.4 % Diabetic >or= 6.5 % Please note range changes. Laboratory - Chemistry and C hemistry - challengeOrdered By: Chele Leyva on 07-22-2022 Cobalamin (Vitamin B12) [Mass/Vol] 614 pg/mL 211-911 [facility] No Panel InformationOrdered By: Chele Leyva on 07-22-2022 Thyroid Stimulating Hormone (TSH) 1.35 uIU/mL 0.358-3.74 [facility] Absolute lymphocyte countOrd ered By: Dr. Leyva on 04-03-2022 Lymphocytes Auto (Unsp spec) [#/Vol] 1.79 10*3/uL 0.83-4.51 [facility] Basophil percentageOrdered B y: Dr. Leyva on 04-03-2022 Basophils/100 WBC (Bld) 0.7 % 0-1 [facility] Bilirubin [Mass/Vol] 0.80 mg/dL 0.20-1.00 [facility] Comment on above: For patients on eltr ombopag therapy, use of Dimension [employer]herty TBIL is not recommended. Chloride [Moles/Vol] 104 mmol/L 98-107 [facility] Cholesterol [Mass/Vol] 204 mg/dL <200 [facility] Comment on above: <200 mg/dL Desirable 200-240 mg/dL Borderline >240 mg/dL High Risk Eosinophils/100 WBC (Bld) 1.3 % 0-5 [facility] Glucose [Mass/Vol] 144 mg/dL 74-106 [facility] Comment on above: Fasting Glucose resu lt greater than or equal to 126 mg/dL suggests DIABETES MELLITUS per A.D.A. criteria. Neutrophils (Bld) [#/Vol] 4.3 10*3/uL 2.0-7.7 [facility] Neutrophils/100 WBC (Bld) 63.8 % 47-70 [facility] Potassium [Moles/Vol] 4.1 mmol/L 3.5-5.1 [facility] Protein [Mass/Vol] 6.9 g/dL 6.4-8.2 [facility] Sodium [Moles/Vol] 139 mmol/L 136-145 [facility] Triglyceride [Mass/Vol] 119 mg/dL <199 [facility] Comment on above: The drugs N-Acetylcy steine and Metamizole may falsely depress this assay.Serum Triglycerides Reference Interval Normal <150 mg/dL Borderline high 150 - 199 mg/dL High 200 - 499 mg/dL Very High > or = 500 mg/dL WBC (Bld) [#/Vol] 6.8 10*3/uL 4.4-11.0 [facility] Blood erythrocytes count (nu mber/volume)Ordered By: Dr. Leyva on 04-03-2022 RBC (Bld) [#/Vol] 5.49 10*6/uL 4.6-6.2 [facility] Blood hemoglobin measurement (mass/volume)Ordered By: Dr. eLyva on 04-03-2022 Hemoglobin (Bld) [Mass/Vol] 15.6 g/dL 13.0-16.5 [facility] Blood lymphocytes/100 leukoc ytesOrdered By: Dr. Leyva on 04-03-2022 Lymphocytes/100 WBC (Bld) 26.3 % 19-41 [facility] Blood monocytes/100 leukocyt esOrdered By: Dr. Leyva on 04-03-2022 Monocytes/100 WBC (Bld) 7.8 % 0-10 [facility] Blood platelet mean volumeOr dered By: Dr. Leyva on 04-03-2022 Platelet mean volume (Bld) [Entitic vol] 10.0 fL 6.2-12.0 [facility] Determination of erythrocyte mean corpuscular volume (MCV)Ordered By: Dr. Leyva on 04-03-2022 MCV (RBC) [Entitic vol] 86.2 fL 80-94 [facility] Hematocrit Auto (Bld) [Volum e fraction]Ordered By: Dr. Leyva on 04-03-2022 Hematocrit (Bld) [Volume fraction] 47.3 % 40-54 [facility] Laboratory - Chemistry and C hemistry - challengeOrdered By: Dr. Leyva on 04-03-2022 ALP [Catalytic activity/Vol] 58 U/L 45-117 [facility] ALT [Catalytic activity/Vol] 42 U/L 16-61 [facility] CO2 [Moles/Vol] 27.0 mmol/L 21.0-32.0 [facility] Globulin (S) [Mass/Vol] 3.3 g/dL 2.2-4.2 [facility] Urea nitrogen/Creatinine [Mass ratio] 21.5 mg/mg 10-20 [facility] Laboratory - Hematology and Cell countsOrdered By: Dr. Leyva on 04-03-2022 Erythrocyte distribution width (RBC) [Entitic vol] 42.7 fL 35.1-43.9 [facility] Erythrocyte distribution width (RBC) [Ratio] 13.6 % 11.6-14.6 [facility] Immature granulocytes/100 WBC (Bld) 0.100 % 0.0-0.9 [facility] Comment on above: IG% - Immature Granu locytes (promyelocytes, myelocytes and metamyelocytes) > 1% indicates that a LEFT SHIFT is Present. MCH (RBC) [Entitic mass] 28.4 pg 27.0-32.0 [facility] Nucleated RBC/100 WBC (Bld) [Ratio] 0 % 0-5 [facility] MCHC Auto (RBC) [Mass/Vol]Or dered By: Dr. Leyva on 04-03-2022 MCHC (RBC) [Mass/Vol] 33.0 g/dL 32-36 [facility] No Panel InformationOrdered By: Dr. Leyva on 04-03-2022 Estimated GFR (MDRD) Amer 85 mL/min >60 [facility] Comment on above: GFR Calc Estimated GFR (MDRD) Non-Af Amer 71 mL/min >60 [facility] Comment on above: Non- GFR Calc Prostate Specific Antigen Screen 2.31 ng/mL 0.00-4.00 [facility] Comment on above: This test was perfor med using the TPSA assay method for [employer] system. Values obtained with differentassay methods cannot be used interchangably.When changing PSA assays in the course of monitoring apatient, additional sequential testing should be carriedout to confirm baseline values. Urine Microalbumin/Creatinine Ratio 37.9 mg/g CRE <30 [facility] Platelets bldOrdered By: Dr. Leyva on 04-03-2022 Platelets (Bld) [#/Vol] 226 10*3/uL 150-450 [facility] Serum or plasma albumin adore urement (mass/volume)Ordered By: Dr. Leyva on 04-03-2022 Albumin [Mass/Vol] 3.6 g/dL 3.2-5.0 [facility] Serum or plasma albumin/glob ulin mass ratioOrdered By: Dr. Leyva on 04-03-2022 Albumin/Globulin [Mass ratio] 1.1 {ratio} 0.9-2.4 [facility] Serum or plasma calcium adore urement (mass/volume)Ordered By: Dr. Leyva on 04-03-2022 Calcium [Mass/Vol] 9.0 mg/dL 8.5-10.1 [facility] Serum or plasma cholesterol in HDL measurement (mass/volume)Ordered By: Dr. Leyva on 04-03-2022 Cholesterol in HDL [Mass/Vol] 41 mg/dL >40 [facility] Comment on above: The drugs N-Acetylcy steine and Metamizole may falsely depress this assay. Reference Range HDL <40 mg/dL Low HDL Cholesterol HDL >or= 60 mg/dL High HDL Cholesterol Serum or plasma cholesterol in VLDL measurement (mass/volume)Ordered By: Dr. Leyva on 04-03-2022 Cholesterol in VLDL [Mass/Vol] 24 mg/dL 5-40 [facility] Serum or plasma creatinine m easurement (mass/volume)Ordered By: Dr. Leyva on 04-03-2022 Creatinine [Mass/Vol] 1.07 mg/dL 0.70-1.30 [facility] Comment on above: The validity of the calculated GFR & GFRAA in patients over 70 years has not been determined. Clinical correlation is essential. Serum or plasma low density lipoprotein (LDL) cholesterol measurement (mass/volume)Ordered By: Dr. Leyva on 04-03-2022 Cholesterol in LDL [Mass/Vol] 139 mg/dL 0-130 [facility] Serum or plasma urea nitroge n measurement (mass/volume)Ordered By: Dr. Leyva on 04-03-2022 Urea nitrogen [Mass/Vol] 23 mg/dL 7-18 [facility] Thin prep Papanicolaou smear with manual screeningOrdered By: Dr. Leyva on 04-03-2022 Thin prep Papanicolaou smear with manual screening 30 U/L 15-37 [facility] Thin prep Papanicolaou smear with manual screening 8 5-15 [facility] Thin prep Papanicolaou smear with manual screening 67.4 mg/L NO RANGE EST. [facility] Urine creatinine measurement (mass/volume)Ordered By: Dr. Leyva on 04-03-2022 Creatinine (U) [Mass/Vol] 178.00 mg/dL NO RANGE EST. [facility] Whole blood hemoglobin A1c/t otal hemoglobin ratio (mass fraction)Ordered By: Dr. Leyva on 04-03-2022 HbA1c (Bld) [Mass fraction] 7.3 % 3.8-5.6 [facility] Comment on above: Normal < 5.7 % Predi abetic 5.7 - 6.4 % Diabetic >or= 6.5 % Please note range changes. Absolute lymphocyte counton 08-02-2021 Lymphocytes Auto (Unsp spec) [#/Vol] 1.44 10*3/uL 0.83-4.51 [facility] Work Phone: Basophil percentageon 2021 Basophils/100 WBC (Bld) 0.9 % 0-1 [facility] Work Phone: Bilirubin [Mass/Vol] 0.90 mg/dL 0.20-1.00 [facility] Work Phone: Comment on above: For patients on eltr ombopag therapy, use of Dimension [employer]herty TBIL is not recommended. Chloride [Moles/Vol] 106 mmol/L 98-107 [facility] Work Phone: Cholesterol [Mass/Vol] 214 mg/dL <200 [facility] Work Phone: Comment on above: <200 mg/dL Desirable 200-240 mg/dL Borderline >240 mg/dL High Risk Eosinophils/100 WBC (Bld) 0.8 % 0-5 [facility] Work Phone: Glucose [Mass/Vol] 126 mg/dL 74-106 [facility] Work Phone: Comment on above: Fasting Glucose resu lt greater than or equal to 126 mg/dL suggests DIABETES MELLITUS per A.D.A. criteria. Neutrophils (Bld) [#/Vol] 4.3 10*3/uL 2.0-7.7 [facility] Work Phone: Neutrophils/100 WBC (Bld) 66.4 % 47-70 [facility] Work Phone: Potassium [Moles/Vol] 3.8 mmol/L 3.5-5.1 [facility] Work Phone: Protein [Mass/Vol] 7.0 g/dL 6.4-8.2 [facility] Work Phone: Sodium [Moles/Vol] 139 mmol/L 136-145 [facility] Work Phone: Triglyceride [Mass/Vol] 86 mg/dL <199 [facility] Work Phone: Comment on above: The drugs N-Acetylcy steine and Metamizole may falsely depress this assay.Serum Triglycerides Reference Interval Normal <150 mg/dL Borderline high 150 - 199 mg/dL High 200 - 499 mg/dL Very High > or = 500 mg/dL WBC (Bld) [#/Vol] 6.5 10*3/uL 4.4-11.0 [facility] Work Phone: Blood erythrocytes count (nu mber/volume)on 08-02-2021 RBC (Bld) [#/Vol] 5.46 10*6/uL 4.6-6.2 [facility] Work Phone: Blood hemoglobin measurement (mass/volume)on 08-02-2021 Hemoglobin (Bld) [Mass/Vol] 15.6 g/dL 13.0-16.5 [facility] Work Phone: Blood lymphocytes/100 leukoc yteson 08-02-2021 Lymphocytes/100 WBC (Bld) 22.2 % 19-41 [facility] Work Phone: Blood monocytes/100 leukocyt eson 08-02-2021 Monocytes/100 WBC (Bld) 9.4 % 0-10 [facility] Work Phone: Blood platelet mean volumeon 08-02-2021 Platelet mean volume (Bld) [Entitic vol] 10.0 fL 6.2-12.0 [facility] Work Phone: Determination of erythrocyte mean corpuscular volume (MCV)on 08-02-2021 MCV (RBC) [Entitic vol] 86.4 fL 80-94 [facility] Work Phone: Hematocrit Auto (Bld) [Volum e fraction]on 08-02-2021 Hematocrit (Bld) [Volume fraction] 47.2 % 40-54 [facility] Work Phone: Laboratory - Chemistry and C hemistry - challengeon 08-02-2021 ALP [Catalytic activity/Vol] 49 U/L 45-117 [facility] Work Phone: ALT [Catalytic activity/Vol] 24 U/L 16-61 [facility] Work Phone: CO2 [Moles/Vol] 26.0 mmol/L 21.0-32.0 [facility] Work Phone: Globulin (S) [Mass/Vol] 3.3 g/dL 2.2-4.2 [facility] Work Phone: Urea nitrogen/Creatinine [Mass ratio] 21.6 mg/mg 10-20 [facility] Work Phone: Laboratory - Hematology and Cell countson 08-02-2021 Erythrocyte distribution width (RBC) [Entitic vol] 40.9 fL 35.1-43.9 [facility] Work Phone: Erythrocyte distribution width (RBC) [Ratio] 13.2 % 11.6-14.6 [facility] Work Phone: Immature granulocytes/100 WBC (Bld) 0.300 % 0.0-0.9 [facility] Work Phone: Comment on above: IG% - Immature Granu locytes (promyelocytes, myelocytes and metamyelocytes) > 1% indicates that a LEFT SHIFT is Present. MCH (RBC) [Entitic mass] 28.6 pg 27.0-32.0 [facility] Work Phone: Nucleated RBC/100 WBC (Bld) [Ratio] 0 % 0-5 [facility] Work Phone: MCHC Auto (RBC) [Mass/Vol]on 08-02-2021 MCHC (RBC) [Mass/Vol] 33.1 g/dL 32-36 [facility] Work Phone: No Panel Informationon 08-02 Estimated GFR (MDRD) Amer 90 mL/min >60 [facility] Work Phone: Comment on above: GFR Calc Estimated GFR (MDRD) Non-Af Amer 75 mL/min >60 [facility] Work Phone: Comment on above: Non- GFR Calc Urine Microalbumin/Creatinine Ratio 18.6 mg/g CRE <30 [facility] Work Phone: Platelets bldon 08-02-2021 Platelets (Bld) [#/Vol] 233 10*3/uL 150-450 [facility] Work Phone: Serum or plasma albumin adore urement (mass/volume)on 08-02-2021 Albumin [Mass/Vol] 3.7 g/dL 3.2-5.0 [facility] Work Phone: Serum or plasma albumin/glob ulin mass ratioon 08-02-2021 Albumin/Globulin [Mass ratio] 1.1 {ratio} 0.9-2.4 [facility] Work Phone: Serum or plasma calcium adore urement (mass/volume)on 08-02-2021 Calcium [Mass/Vol] 8.9 mg/dL 8.5-10.1 [facility] Work Phone: Serum or plasma cholesterol in HDL measurement (mass/volume)on 08-02-2021 Cholesterol in HDL [Mass/Vol] 40 mg/dL >40 [facility] Work Phone: Comment on above: The drugs N-Acetylcy steine and Metamizole may falsely depress this assay. Reference Range HDL <40 mg/dL Low HDL Cholesterol HDL >or= 60 mg/dL High HDL Cholesterol Serum or plasma cholesterol in VLDL measurement (mass/volume)on 08-02-2021 Cholesterol in VLDL [Mass/Vol] 17 mg/dL 5-40 [facility] Work Phone: Serum or plasma creatinine m easurement (mass/volume)on 08-02-2021 Creatinine [Mass/Vol] 1.02 mg/dL 0.70-1.30 [facility] Work Phone: Comment on above: The validity of the calculated GFR & GFRAA in patients over 70 years has not been determined. Clinical correlation is essential. Serum or plasma low density lipoprotein (LDL) cholesterol measurement (mass/volume)on 08-02-2021 Cholesterol in LDL [Mass/Vol] 157 mg/dL 0-130 [facility] Work Phone: Serum or plasma urea nitroge n measurement (mass/volume)on 08-02-2021 Urea nitrogen [Mass/Vol] 22 mg/dL 7-18 [facility] Work Phone: Thin prep Papanicolaou smear with manual screeningon 08-02-2021 Thin prep Papanicolaou smear with manual screening 19 U/L 15-37 [facility] Work Phone: Thin prep Papanicolaou smear with manual screening 7 5-15 [facility] Work Phone: Thin prep Papanicolaou smear with manual screening 24.0 mg/L NO RANGE EST. [facility] Work Phone: Urine creatinine measurement (mass/volume)on 08-02-2021 Creatinine (U) [Mass/Vol] 129.00 mg/dL NO RANGE EST. [facility] Work Phone: Whole blood hemoglobin A1c/t otal hemoglobin ratio (mass fraction)on 08-02-2021 HbA1c (Bld) [Mass fraction] 7.0 % 3.8-5.6 [facility] Work Phone: Comment on above: Normal < 5.7 % Predi abetic 5.7 - 6.4 % Diabetic >or= 6.5 % Please note range changes. Encounters Encounter Date Encounter Type Care Provider Facility Start: 10-06-2024 ambulatory Chele Leyva Facility: [facility] Start: 09-20-2024 End: 09-20-[address] Chele Leyva DO Work Phone: -[facility] Start: 09-20-2024 End: 09-20-[address] Danielle Niño MD -[facility] Work Phone: Start: 09-01-2024 End: 09-01-[address] Danielle Niño MD -[facility] Work Phone: Start: 09-01-2024 End: 09-01-[address] Chele Leyva DO Work Phone: -[facility] Start: 09-01-2024 [facility] Start: 08-04-2024 ambulatory Chele [facility] Facility: [facility] Start: 08-04-2024 Registered Referred Danielle [facility] Start: 07-19-2024 End: 07-19-[address] Chele Leyva DO Work Phone: -[facility] Start: 07-19-2024 End: 07-19-[address] Danielle Niño MD -[facility] Work Phone: Start: 06-30-2024 End: 06-30-[address] Chele Leyva DO Work Phone: [facility] Work Phone: Start: 06-30-2024 End: 06-30-2024 Departed Referred Danielle [facility] Start: 06-30-2024 End: 06-30-2024 ambulatory Chele [facility] Facility:[facility] Start: 06-28-2024 End: 06-28-[address] Chele Leyva DO Work Phone: -[facility] Start: 06-28-2024 End: 06-28-2024 Patient encounter procedure Lili BRAXTON -[facility] Work Phone: Start: 06-02-2024 End: 06-02-[address] Chele Leyva DO Work Phone: [facility] Work Phone: Start: 06-02-2024 End: 06-02-2024 Departed Referred Danielle CorderoCelestina Cordero [facility] Start: 06-02-2024 End: 06-02-2024 ambulatory Danielle BURTON Facility:[facility] Start: 05-17-2024 End: 05-17-[address] Chele Leyva DO Work Phone: [facility] Work Phone: Start: 05-17-2024 End: 05-17-[address] Danielle Niño MD -[facility] Work Phone: Start: 05-05-2024 End: 05-05-[address] Chele Leyva DO Work Phone: [facility] Work Phone: Start: 05-05-2024 End: 05-05-2024 Departed Referred Danielle Nelson Start: 05-05-2024 End: 05-05-2024 ambulatory Danielle BURTON Facility:[facility] Start: 04-18-2024 End: 04-18-2024 ambulatory Lili Haynes NP Facility:[facility] Start: 04-18-2024 End: 04-18-2024 Patient encounter procedure Lili Haynes CELL SUPPORT OPERATOR-C -[facility] Work Phone: Start: 04-07-2024 ambulatory Danielle BURTON Fa cility:[facility] Start: 04-07-2024 Registered Referred Danielle Nelson Start: 03-29-2024 End: 03-29-2024 ambulatory Danielle Niño Facility:[facility] Start: 03-29-2024 End: 03-29-[address] Danielle Niño MD -[facility] Work Phone: Start: 03-03-2024 End: 03-03-2024 Departed Referred Danielle Nelson Start: 03-03-2024 End: 03-03-2024 ambulatory Danielle BURTON Facility:[facility] Start: 02-22-2024 End: 02-22-2024 ambulatory Lili Haynes CELL SUPPORT OPERATOR Facility:[facility] Start: 02-22-2024 End: 02-22-2024 Patient encounter procedure Lili Haynes CELL SUPPORT OPERATOR-C -[facility] Work Phone: Start: 02-04-2024 ambulatory Danielle BURTON Fa cility:[facility] Start: 02-04-2024 Registered Referred Danielle Niño MD -[facility] - [facility] Start: 02-02-2024 End: 02-02-2024 ambulatory Danielle Niño Facility:[facility] Start: 02-02-2024 End: 02-02-[address] Danielle Niño MD -[facility] Work Phone: Start: 01-07-2024 End: 01-07-2024 ambulatory Danielle BURTON Facility:[facility] Start: 12-30-2023 End: 12-30-2023 ambulatory Lili Haynes NP Facility:[facility] Start: 12-03-2023 ambulatory [facility] Facility: [facility] Start: 11-17-2023 End: 11-17-2023 ambulatory Danielle Niño Facility:[facility] Start: 11-16-2023 ambulatory [facility] Facility: [facility] Start: 11-02-2023 End: 11-02-2023 ambulatory Jacinta Braswell Facility:[facility] Start: 05-19-2023 End: 05-19-2023 ambulatory [facility] Work Phone: Start: 05-19-2023 End: 05-19-2023 Patient encounter procedure [facility]-Cat Scan, [facility] Work Phone: Start: 04-21-2023 End: 04-21-2023 ambulatory [facility] Work Phone: Start: 04-21-2023 End: 04-21-2023 Patient encounter procedure [facility] Start: 03-17-2023 End: 03-17-2023 ambulatory [facility] Work Phone: Start: 03-17-2023 End: 03-17-2023 Patient encounter procedure [facility], [place] Work Phone: Start: 10-14-2022 End: 10-14-2022 ambulatory [facility] Work Phone: Start: 10-14-2022 End: 10-14-2022 [facility] Start: 07-22-2022 End: 07-22-2022 [facility] Start: 04-03-2022 End: 04-03-2022 ambulatory [facility] Work Phone: Start: 04-03-2022 End: 04-03-2022 [facility] Start: 08-02-2021 End: 08-02-2021 Patient encounter procedure [facility] Procedures Date Procedure Procedure Detail Performing Clinician Start: 04-07-2024 Measurement of renal function Dr. Chele Leyva DO Work Phone: Comment on above: GFR Calc Start: 03-03-2024 Measurement of renal function Dr. Chele Leyva DO Work Phone: Comment on above: GFR Calc Start: 05-19-2023 CT of head without contrast Start: 03-17-2023 End: 03-17-2023 Plain X-ray of tibia and fibula Payers Date Payer Category Payer Self-pay [id number] 2023 Private Health Insurance [id number] 2014 Medicare [id number] 2006 Medicare [id number] Private Health Insurance [facility] [id number] [place] [address] [id number] Unknown [id number] [id number] 62 Unknown [id number] 2.16.840.1.503906.3.579.2.4 62 Unknown [id number] 2.16.840.1.535654.3.579.2.4 62 Unknown [id number] 2.16.840.1.335761.3.579.2.4 62 Unknown [id number] 2.16.840.1.571465.3.579.2.4 62 Unknown [id number] 2.16.840.1.793803.3.579.2.4 62 Unknown [id number] 2.16.840.1.353251.3.579.2.4 62 Unknown [id number] 2.16.840.1.104601.3.579.2.4 62 Unknown [id number] 2.16.840.1.582927.3.579.2.4 62 Unknown [id number] 2.16.840.1.458226.3.579.2.4 62 Unknown [id number] 2.16.840.1.625034.3.579.2.4 62 Unknown [id number] 2.16.840.1.831651.3.579.2.4 62 Unknown [id number] 2.16.840.1.865418.3.579.2.4 62 Unknown [id number] 2.16.840.1.664690.3.579.2.4 62 Unknown [id number] 2.16.840.1.257786.3.579.2.4 62 Unknown [id number] 2.16.840.1.426740.3.579.2.4 62 Unknown [id number] 2.16.840.1.288018.3.579.2.4 62 Unknown [id number] 2.16.840.1.848066.3.579.2.4 62 Unknown [id number] 2.16.840.1.895367.3.579.2.4 62 Unknown [id number] 2.16.840.1.386171.3.579.2.4 62 Unknown [id number] 2.16.840.1.755245.3.579.2.4 62 Unknown [id number] 2.16.840.1.581088.3.579.2.4 62 Unknown [id number] 2.16.840.1.363330.3.579.2.4 62 Unknown [id number] 2.16.840.1.513669.3.579.2.4 62 Social History Date Type Detail Facility Start: 11-30-2015 End: 11-30-2015 Tobacco smoking status IDIS Unknown if ever smoked [facility] Start: 1940 Sex [facility]igned At Male [facility] Start: 05-19-2024 End: 09-27-2024 Tobacco smoking status NHIS Never smoked tobacco (finding) [facility] Start: 05-24-2024 End: 06-03-2024 Sex Male (finding) [facility] Evaluation note Note Date & Type Note Facility Evaluation note No assessment information availa ble [facility] Work Phone: Reason for referral (narrative) Note Date & Type Note Facility Reason for referral (narrative) No reason for referral information available [facility] Work Phone: Advance Directives No Advanced Directives Records Found Advance Directive Response Recorded Date/ Time Advance Directives Yes December 06, 2015 7:23am Living Will Yes December 05 7:23am Power of Laboratory Worker Yes December 06, 2015 7:23am Advance Directive Response Recorded Date/ Time Advance Directives Yes December 06, 2015 6:23am Living Will Yes December 05 6:23am Power of Laboratory Worker Yes December 06, 2015 6:23am Advance Directive Response Recorded Date/ Time Advance Directives Yes May 19 8:00am Advance Directive Response Recorded Date/ Time Advance Directives Yes September 27, 2024 10:16am Chief Complaint and Reason for Visit Chief Complaint LEG PAIN Chief Complaint LEG PAIN MEMORY IMPAIRMENT, DELUSIONS, ABN GAIT Chief Complaint Admit Date MONTHLY EXAM February 02, 2024 6:35pm LABWORK February 04, 2024 5:00am NEW CONCERN February 22, 2024 3: 09pm [facility] March 03, 2024 5:00am MONTHLY EXAM - MD March 29, 2024 12:41pm LABWORK April 07, 2024 5:00am MONTHLY EXAM April 18, 2024 4:50 pm [facility] WORK May 05, 2024 5 :00am Chief Complaint Admit Date LABWORK February 04, 2024 5:00am NEW CONCERN February 22, 2024 3: 09pm [facility] WORK March 03, 2024 5:00am MONTHLY EXAM - MD March 29, 2024 12:41pm LABWORK April 07, 2024 5:00am MONTHLY EXAM April 18, 2024 4:50 pm [facility] WORK May 05, 2024 5 :00am [facility] WORK June 02, 2024 4 :00am Chief Complaint Admit Date [facility] WORK March 03, 2024 5:00am MONTHLY EXAM - MD March 29, 2024 12:41pm LABWORK April 07, 2024 5:00am MONTHLY EXAM April 18, 2024 4:50 pm [facility] WORK May 05, 2024 5 :00am MONTHLY EXAM May 17, 2024 3:18 pm [facility] WORK June 02, 2024 4 :00am Chief Complaint Admit Date MONTHLY EXAM - MD March 29, 2024 12:41pm LABWORK April 07, 2024 5:00am MONTHLY EXAM April 18, 2024 4:50 pm [facility] WORK May 05, 2024 5 :00am MONTHLY EXAM May 17, 2024 3:18 pm [facility] WORK June 02, 2024 4 :00am LABWORK June 30, 2024 5:00a m Chief Complaint Admit Date [facility] WORK May 05, 2024 5 :00am MONTHLY EXAM May 17, 2024 3:18 pm [facility] WORK June 02, 2024 4 :00am LABWORK June 30, 2024 5:00a m Monthly Visit July 19, 2024 6:52p m Chief Complaint Admit Date MONTHLY EXAM May 17, 2024 3:18 pm [facility] WORK June 02, 2024 4 :00am MONTHLY EXAM June 28, 2024 4:24p m LABWORK June 30, 2024 5:00a m Monthly Visit July 19, 2024 6:52p m [facility] WORK August 04, 2024 5: 00am Chief Complaint Admit Date [facility] WORK June 02, 2024 4 :00am MONTHLY EXAM June 28, 2024 4:24p m LABWORK June 30, 2024 5:00a m Monthly Visit July 19, 2024 6:52p m [facility] WORK August 04, 2024 5: 00am [facility] WORK September 01, 2024 5: 00am Monthly Exam September 01, 2024 5:05 pm Chief Complaint Admit Date MONTHLY EXAM June 28, 2024 4:24p m LABWORK June 30, 2024 5:00a m Monthly Visit July 19, 2024 6:52p m [facility] WORK August 04, 2024 5: 00am [facility] September 01, 2024 5: 00am Monthly Exam September 01, 2024 5:05 pm MONTHLY EXAM September 20, 2024 1:3 3pm Summary Purpose Family History No Family History [...] End: February 22, 2024 Lili Haynes NP CELL SUPPORT OPERATOR-C Attending Provider Active Start: February 22, 2024 [...] 2024 End: April 18, 2024 Lili Haynes CELL SUPPORT OPERATOR, CELL SUPPORT OPERATOR-C Attending Provider Active Start: April 18, 2024 [...] June 30, 2024 End: June 30, 2024 Team Status: Active Member Role/Relationship Status Dates Dr. Chele Leyva DO Family Provider Active Dr. Chele Leyva DO Primary Care Provider Active Team Status: Inactive Member Role/Relationship Status Dates Dr. Chele Leyva DO Primary Care Provider Active Start: May 05, 2024 End: May 05, 2024 Danielle BURTON MD Attending Provider Active Start: May 05, 2024 End: May 05, 2024 Team Status: Inactive Member Role/Relationship Status Dates Dr. Chele Leyva DO Primary Care Provider Active Start: May 17, 2024 End: May 17, 2024 Dr. Danielle Niño MD Attending Provider Active Start: May 17, 2024 End: May 17, 2024 Team Status: Inactive Member Role/Relationship Status Dates Dr. Chele Leyva DO Primary Care Provider Active Start: June 02, 2024 End: June 02, 2024 Danielle BURTON MD Attending Provider Active Start: June 02, 2024 End: June 02, 2024 Danielle BURTON MD Referring Provider Active Start: June 02, 2024 End: June 02, 2024 Team Status: Inactive Member Role/Relationship Status Dates Dr. Chele Leyva DO Primary Care Provider Active Start: June 30, 2024 End: June 30, 2024 Danielle BURTON MD Attending Provider Active Start: June 30, 2024 End: June 30, 2024 Team Status: Inactive Member Role/Relationship Status Dates Dr. Chele Leyva DO Primary Care Provider Active Start: July 19, 2024 End: July 19, 2024 Dr. Danielle Niño MD Attending Provider Active Start: July 19, 2024 End: July 19, 2024 Team Status: Active Member Role/Relationship Status Dates Dr. Chele Leyva DO Primary Care Provider Active Start: August 04, 2024 Danielle BURTON MD Attending Provider Active Start: August 04, 2024 Team Status: Inactive Member Role/Relationship Status Dates Dr. Chele Leyva DO Primary Care Provider Active Start: May 17, 2024 End: May 17, 2024 Dr. Danielle Niño MD Attending Provider Active Start: May 17, 2024 End: May 17, 2024 Team Status: Inactive Member Role/Relationship Status Dates Dr. Chele Leyva DO Primary Care Provider Active Start: June 02, 2024 End: June 02, 2024 Danielle BURTON MD Attending Provider Active Start: June 02, 2024 End: June 02, 2024 Danielle BURTON MD Referring Provider Active Start: June 02, 2024 End: June 02, 2024 Team Status: Inactive Member Role/Relationship Status Dates Dr. Chele Leyva DO Primary Care Provider Active Start: June 28, 2024 End: June 28, 2024 Lili Haynes NP, CELL SUPPORT OPERATOR-C Attending Provider Active Start: June 28, 2024 End: June 28, 2024 Team Status: Active Member Role/Relationship Status Dates Dr. Chele Leyva DO Primary Care Provider Active Start: September 01, 2024 Danielle BURTON MD Attending Provider Active Start: September 01, 2024 Team Status: Inactive Member Role/Relationship Status Dates Dr. Chele Leyva DO Primary Care Provider Active Start: June 02, 2024 End: June 02, 2024 Danielle BURTON MD Attending Provider Active Start: June 02, 2024 End: June 02, 2024 Danielle BURTON MD Referring Provider Active Start: June 02, 2024 End: June 02, 2024 Team Status: Inactive Member Role/Relationship Status Dates Dr. Chele Leyva DO Primary Care Provider Active Start: June 28, 2024 End: June 28, 2024 Lili Haynes CELL SUPPORT OPERATOR, CELL SUPPORT OPERATOR-C Attending Provider Active Start: June 28, 2024 End: June 28, 2024 Team Status: Inactive Member Role/Relationship Status Dates Dr. Chele Leyva DO Primary Care Provider Active Start: June 30, 2024 End: June 30, 2024 Danielle BURTON MD Attending Provider Active Start: June 30, 2024 End: June 30, 2024 Team Status: Inactive Member Role/Relationship Status Dates Dr. Chele Leyva DO Primary Care Provider Active Start: July 19, 2024 End: July 19, 2024 Dr. Danielle Niño MD Attending Provider Active Start: July 19, 2024 End: July 19, 2024 Team Status: Active Member Role/Relationship Status Dates Dr. Chele Leyva DO Primary Care Provider Active Start: August 04, 2024 Danielle BURTON MD Attending Provider Active Start: August 04, 2024 Team Status: Active Member Role/Relationship Status Dates Dr. Chele Leyva DO Primary Care Provider Active Start: September 01, 2024 Danielle BURTON MD Attending Provider Active Start: September 01, 2024 Team Status: Inactive Member Role/Relationship Status Dates Dr. Chele Leyva DO Primary Care Provider Active Start: September 01, 2024 End: September 01, 2024 Dr. Danielle Niño MD Attending Provider Active Start: September 01, 2024 End: September 01, 2024 Team Status: Inactive Member Role/Relationship Status Dates Dr. Chele Leyva DO Primary Care Provider Active Start: September 01, 2024 End: September 01, 2024 Lili Haynes CELL SUPPORT OPERATOR, CELL SUPPORT OPERATOR-C Attending Provider Active Start: September 01, 2024 End: September 01, 2024 Team Status: Inactive Member Role/Relationship Status Dates Dr. Chele Leyva DO Primary Care Provider Active Start: June 28, 2024 End: June 28, 2024 Lili Haynes CELL SUPPORT OPERATOR, CELL SUPPORT OPERATOR-C Attending Provider Active Start: June 28, 2024 End: June 28, 2024 Team Status: Inactive Member Role/Relationship Status Dates Dr. Chele Leyva DO Primary Care Provider Active Start: June 30, 2024 End: June 30, 2024 Danielle BURTON MD Attending Provider Active Start: June 30, 2024 End: June 30, 2024 Team Status: Inactive Member Role/Relationship Status Dates Dr. Chele Leyva DO Primary Care Provider Active Start: July 19, 2024 End: July 19, 2024 Dr. Danielle Niño MD Attending Provider Active Start: July 19, 2024 End: July 19, 2024 Team Status: Active Member Role/Relationship Status Dates Dr. Chele Leyva DO Primary Care Provider Active Start: August 04, 2024 Danielle BURTON MD Attending Provider Active Start: August 04, 2024 Team Status: Active Member Role/Relationship Status Dates Dr. Chele Leyva DO Primary Care Provider Active Start: September 01, 2024 Danielle BURTON MD Attending Provider Active Start: September 01, 2024 Team Status: Inactive Member Role/Relationship Status Dates Dr. Chele Leyva DO Primary Care Provider Active Start: September 01, 2024 End: September 01, 2024 Lili Haynes NP, CELL SUPPORT OPERATOR-C Attending Provider Active Start: September 01, 2024 End: September 01, 2024 Team Status: Inactive Member Role/Relationship Status Dates Dr. Chele Leyva DO Primary Care Provider Active Start: September 20, 2024 End: September 20, 2024 Dr. Danielle Niño MD Attending Provider Active Start: September 20, 2024 End: September 20, 2024 (unrecognized sect ion and content) No Status Records Found INFORMATION SOURCE (unrecogn ized section and content) DATE CREATED AUTHOR 10/23/2024 [facility] FOR RECORDS PERTAINING TO PATIENTS [...] BE BASED ON THE PRIMARY CLINICAL RECORDS. [facility]. provides no warranty or guarantee of the accuracy or completeness of information in this document.
[2024-11-03 08:31] LABS: Hematocrit 43.5 % (40-54); Hemoglobin 14.4 g/dL (13.0-16.5); Immature Granulocytes Count 0.020 X10^3/uL (0.0-0.0); Mean Corp Hgb Conc 33.1 g/dL (32-36); Mean Corpuscular Volume 86.0 fL (80-94); Mean Platelet Vol. 10.2 fl (6.2-12.0); NRBC Flagged by Analyzer 0 % (0-5); Platelet Count 215 K/mm3 (150-450); RBC Distribution Width CV 13.4 % (11.6-14.6); RBC Distribution Width SD 42.2 fl (35.1-43.9); Red Blood Count 5.06 M/mm3 (4.6-6.2); White Blood Count 6.5 K/mm3 (4.4-11.0)
[2024-11-03 08:50] LABS: Anion Gap 12 (5-15); BUN 18 mg/dL (4-19); BUN/Creat Ratio 19.6 RATIO (10-20); Calcium,Total 8.5 mg/dL (7.6-11.0); Carbon Dioxide 23.5 mmol/L (21.0-32.0); Chloride 104 mmol/L (98-108); Glucose 137 mg/dL (70-99); Potassium 4.0 mmol/L (3.3-5.1)
== END ==
LOC: OLS.WHLTSB 04:00
PROVIDERS: PCP Family Medicine; Referring Provider Internal Medicine; Visit Provider Internal Medicine
DX: E11.9 Type 2 diabetes mellitus without complications (principal); G30.9 Alzheimer's disease, unspecified
CPT/HCPCS: 36415; 80048; 85025

== ENCOUNTER → 2024-12-01 05:00 | Outpatient (REF) | payer MEDICARE, SELFPAY ==
[2024-12-01 06:41] LABS: Hematocrit 41.4 % (40-54); Hemoglobin 14.3 g/dL (13.0-16.5); Immature Granulocytes Count 0.040 X10^3/uL (0.0-0.0); Mean Corp Hgb Conc 34.5 g/dL (32-36); Mean Corpuscular Volume 84.5 fL (80-94); Mean Platelet Vol. 10.3 fl (6.2-12.0); NRBC Flagged by Analyzer 0 % (0-5); Platelet Count 208 K/mm3 (150-450); RBC Distribution Width CV 13.2 % (11.6-14.6); RBC Distribution Width SD 40.8 fl (35.1-43.9); Red Blood Count 4.90 M/mm3 (4.6-6.2); White Blood Count 7.8 K/mm3 (4.4-11.0)
[2024-12-01 07:26] LABS: AST(SGOT) 25 U/L (<=37); Alanine Aminotransfer ALT/SGPT 14 U/L (<=46); Albumin, Serum 3.6 g/dL (3.4-4.8); Alkaline Phosphatase 50 U/L (40-129); Anion Gap 12 (5-15); BUN 20 mg/dL (4-19); BUN/Creat Ratio 17.8 RATIO (10-20); Bilirubin, Direct 0.12 mg/dL (0.00-0.30); Calcium,Total 8.6 mg/dL (7.6-11.0); Carbon Dioxide 23.7 mmol/L (21.0-32.0); Chloride 103 mmol/L (98-108); Globulin 2.5 g/dL (2.2-4.2); Glucose 132 mg/dL (70-99); Potassium 3.9 mmol/L (3.3-5.1)
== END ==
LOC: OLS.WHLTSB 05:00
PROVIDERS: PCP Family Medicine; Visit Provider Internal Medicine
DX: E11.9 Type 2 diabetes mellitus without complications (principal)
CPT/HCPCS: 36415; 80048; 80076; 83036; 85025

== ENCOUNTER → 2025-01-05 | Outpatient (REF) | payer MEDICARE, SELFPAY ==
[2025-01-05 10:24] LABS: Hematocrit 44.2 % (40-54); Hemoglobin 14.9 g/dL (13.0-16.5); Immature Granulocytes Count 0.040 X10^3/uL (0.0-0.0); Mean Corp Hgb Conc 33.7 g/dL (32-36); Mean Corpuscular Volume 85.0 fL (80-94); Mean Platelet Vol. 10.2 fl (6.2-12.0); NRBC Flagged by Analyzer 0 % (0-5); Platelet Count 222 K/mm3 (150-450); RBC Distribution Width CV 13.2 % (11.6-14.6); RBC Distribution Width SD 40.6 fl (35.1-43.9); Red Blood Count 5.20 M/mm3 (4.6-6.2); White Blood Count 7.4 K/mm3 (4.4-11.0)
[2025-01-05 10:40] LABS: Anion Gap 10 (5-15); BUN 15 mg/dL (4-19); BUN/Creat Ratio 14.3 RATIO (10-20); Calcium,Total 8.6 mg/dL (7.6-11.0); Carbon Dioxide 24.4 mmol/L (21.0-32.0); Chloride 104 mmol/L (98-108); Glucose 132 mg/dL (70-99); Potassium 4.3 mmol/L (3.3-5.1)
== END ==
LOC: OLS.WHLTSB 05:35
PROVIDERS: PCP Family Medicine; Visit Provider Internal Medicine
DX: E11.9 Type 2 diabetes mellitus without complications (principal)
CPT/HCPCS: 36415; 80048; 85025

== ENCOUNTER → 2025-02-02 05:00 | Outpatient (REF) | payer MEDICARE, SELFPAY ==
--- OUTSIDE RECORDS SUMMARY | 2025-02-02 03:16 | XMS RPT_ITS | CCD ---
Author Organization [facility] Care Team Providers Care Cushion Maker Name Role Phone Dr. Chele Leyva DO [...] Provider Dr. Danielle Niño MD Attending Provider Autumn DO, Dr. Chele Primary Care Provider Danielle Niño MD Attending Provider UnavailDr. Chele Hogue DO Primary Care Physician Dr. Danielle Niño MD Attending Physician Danielle Niño MD Attending Physician Unavail able [place] RECRUITMENT COORDINATOR-CLili Attending Physician Danielle Niño MD Referring Provider Unavaila giuliana Haynes RECRUITMENT COORDINATOR, Lili Attending Unavailable AutumnChele jon Primary Care Unavailable Autumn, Chele Primary Care Unavailable Oleghe, Efewongbe Attending Unavailable AutumnChele jon Primary Care Unavailable Oleghe, Efewongbe Attending Unavailable Oleghe OLS, Efewongbe Attending Unavailabl e AutumnChele jon Primary Care Unavailable Autumn, Chele Primary Care Unavailable Oleghe OLS, Efewongbe Attending Unavailabl e AutumnChele jon Primary Care Unavailable Oleghe OLS, Efewongbe Attending Unavailabl e AutumnChele jon Primary Care Unavailable Oleghe OLS, Efewongbe Attending Unavailabl e Oleghe OLS, Efewongbe Attending Unavailabl e AutumnChele jon Primary Care Unavailable Oleghe OLS, Efewongbe Attending Unavailabl e AutumnChele jon Primary Care Unavailable [facility] Chele Primary Care Unavailable [place] RECRUITMENT COORDINATOR, Lili Attending Unavailable Autumn, Chele Primary Care Unavailable [place] RECRUITMENT COORDINATOR, Lili Attending Unavailable AutumnChele jon Primary Care Unavailable Oleghe, Efewongbe Attending Unavailable AutumnChele jon Primary Care Unavailable [place] RECRUITMENT COORDINATOR, Lili Attending Unavailable Autumn, Chele Primary Care Unavailable [place] RECRUITMENT COORDINATOR, Lili Attending Unavailable Autumn, Chele Primary Care Unavailable [place] RECRUITMENT COORDINATOR, Lili Attending Unavailable Autumn, Chele Primary Care Unavailable Oleghe, Efewongbe Attending Unavailable AutumnChele jon Primary Care Unavailable Oleghe, Efewongbe Attending Unavailable AutumnChele Primary Care Unavailable Oleghe OLS, Efewongbe Attending Unavailabl e Oleghe OLS, Efewongbe Referring Unavailabl e Oleghe OLS, Efewongbe Attending Unavailabl e AutumnChele jon Primary Care Unavailable AutumnChele jon Primary Care Unavailable Oleghe JOSEPHINE Carlyongbe Attending Unavaildanyel e Hakeemshilohe JOSEPHINE Efewongbe Attending Unavaildanyel e Chele Leyva Primary Care Unavailable [place] JOSEPHINE Efaustinongbe Referring Chele Sweet Primary Care Unavailable [place]ilohe JOSEPHINE, Efewongbe Attending Unavaildanyel e Hakeemshilohe JOSEPHINE, Efewongbe Attending Unavaildanyel e Chele Leyva Primary Care Unavailable Chele Leyva Primary Care Unavailable Lili Haynes NP Attending Unavailable Chele Leyva Primary Care Unavailable Danielle Niño Attending Unavailable Medications Current Medications Medication Drug Class(es) Dates Sig (Normalized) Sig (Original) finasteride 5 mg oral tablet (16 sources) 5-alpha Reductase Inhibitor Start: 11-30-2015 take 1 tablet by mouth once daily lisinopril 2.5 mg oral tablet (16 sources) Angiotensin Converting Enzyme Inhibitor Start: 09-10-2014 take 1 tablet by mouth once daily LORazepam 0.5 mg oral tablet (20 sources) Benzodiazepine Start: 09-20-2024 End: 10-21-2024 take 0.25 mg by mouth at bedtime Start: 03-01-2024 End: 09-20-2024 take 1 tablet by mouth at bedtime Lorazepam 0.5 mg tablet Discontinued 0.5 mg PO AT BEDTIME 30 30 0 September 14, 2024 11:04am October 13, 2024 12:00am September 20, 2024 1:40pm oxyCODONE hydrochloride 5 mg oral tablet (20 sources) Opioid Agonist Start: 10-05-2024 End: 11-01-2024 take 1 tablet by mouth twice daily Start: 05-31-2024 End: 09-30-2024 take 1 tablet [...] 1:00pm Chronic pain Other chronic pain pain Pancreas Balance (16 sources) Start: 11-30-2015 Start: 11-30-2015 Pancreas Ambika ce Active 2 {tbl} PO TWICE A DAY November 30, 2015 12:00am Start: 11-30-2015 take 2 tablets by mo uth twice daily Pancreas Balance Active 2 TABLET PO TWICE A DAY November 29, 2015 11:00pm Start: 11-30-2015 take 2 tablets by mo uth twice daily Pancreas Balance Active 2 TABLET PO TWICE A DAY November 30, 2015 12:00am Problems Active Problems Problem Classification Problem Date Documented Da te Episodic/Chronic Administrative/social admission (2 sources) Need for assistance with personal care; Translations: [Need for assistance with personal care] Onset: 06-03-2024 Episodic Delirium, dementia, and amnestic and other cognitive disorders (2 sources) Alzheimer's disease, unspecified; Translations: [Alzheimer's disease, unspecified] Onset: 06-03-2024 Chronic Diabetes mellitus without complication (2 sources) Type 2 diabetes mellitus without complications; Translations: [Type 2 diabetes mellitus without complications] Onset: 07-20-2024 Chronic Miscellaneous mental health disorders (2 sources) Other sexual disorders; Translations: [Other sexual disorders] Onset: 06-03-2024 Chronic Other nervous system disorders (10 sources) Chronic pain; Translations: [Other chronic pain] 02-18-2024 Chronic Unclassified (1 source) Low back pain, unspecified; Translations: [Low back pain, unspecified] Onset: 06-03-2024 Past or Other Problems Problem Classification Problem Date Documented Da te Episodic/Chronic Immunizations and screening for infectious disease (1 source) Encounter for immunization; Translations: [Encounter for immunization] Onset: 06-03-2024 Episodic Other gastrointestinal disorders (2 sources) Diarrhea, unspecified; Translations: [Diarrhea, unspecified] Onset: 06-03-2024 Episodic Results Test Name Value Interpretation Reference Range Facility Absolute lymphocyte countOrd ered By: Danielle Niño on 11-03-2024 Lymphocytes Auto (Unsp spec) [#/Vol] 1.95 10*3/uL 0.83-4.51 [facility] Absolute neutrophil countOrd ered By: Danielle Niño on 11-03-2024 Neutrophils (Bld) [#/Vol] 3.2 10*3/uL 2.0-7.7 [facility] Anion gap in Serum or Plasma Ordered By: Danielle Palacioshilohstalin on 11-03-2024 Anion gap [Moles/Vol] 12 mmol/L 5-15 [facility] Automated lymphocyte count a s percentage of total leukocytesOrdered By: Carlypenelopeamanda Palacioshilohstalin on 11-03-2024 Lymphocytes/100 WBC Auto (Unsp spec) 30.2 % 19-41 [facility] BUN/creatinine ratioOrdered By: austincodyamanda Palacioshilohstalin on 11-03-2024 Urea nitrogen/Creatinine [Mass ratio] 19.6 mg/mg 10-20 [facility] Basophil percentageOrdered B y: Danielle Hakeemshilohstalin on 11-03-2024 Basophils/100 WBC (Bld) 0.9 % 0-1 [facility] Carbon dioxide, total [Moles /volume] in Central venous bloodOrdered By: Danielle Hakeemshilohstalin on 11-03-2024 CO2 [Moles/Vol] 23.5 mmol/L 21.0-32.0 [facility] Chloride assayOrdered By: Karen juan Hakeemshilohstalin on 11-03-2024 Chloride [Moles/Vol] 104 mmol/L 98-108 [facility] Eosinophil percentageOrdered By: Carlypenelopeamanda Hakeemshilohstalin on 11-03-2024 Eosinophils/100 WBC (Bld) 5.4 % High 0-5 [facility] Erythrocyte distribution wid th ratioOrdered By: Karenjuan Hakeemshilohstalin on 11-03-2024 Erythrocyte distribution width (RBC) [Ratio] 13.4 % 11.6-14.6 [facility] Erythrocyte distribution wid th standard deviationOrdered By: austincodyamanda Palacioshilohstalin on 11-03-2024 Erythrocyte distribution width (RBC) [Ratio] 42.2 fl 35.1-43.9 [facility] Glomerular filtration rate ( GFR) estimation/1.73 sq m using serum, plasma, or whole bOrdered By: Danielle Niño on 11-03-2024 GFR/1.73 sq M.predicted among non-blacks MDRD (S/P/Bld) [Vol rate/Area] 82 mL/min/{1.73_m2} >60 [facility] Comment on above: mL/min/1.73m2 CKD-EP I Creatinine Equation (2020) Hematocrit Auto (Bld) [Volum e fraction]Ordered By: Danielle Niño on 11-03-2024 Hematocrit (Bld) [Volume fraction] 43.5 % 40-54 [facility] Hemoglobin measurementOrdere d By: Danielle Niño on 11-03-2024 Hemoglobin (Bld) [Mass/Vol] 14.4 g/dL 13.0-16.5 [facility] Immature granulocytes/100 WB C Auto (Bld)Ordered By: Danielle Niño on 11-03-2024 Immature granulocytes/100 WBC (Bld) 0.300 % 0.0-0.9 [facility] Comment on above: IG% - Immature Granu locytes (promyelocytes, myelocytes and metamyelocytes) > 1% indicates that a LEFT SHIFT is Present. MCV (mean corpuscular volume ) determinationOrdered By: Danielle Niño on 11-03-2024 MCV (RBC) [Entitic vol] 86.0 fL 80-94 [facility] Mean corpuscular hemoglobin (MCH) determinationOrdered By: Danielle Niño on 11-03-2024 MCH (RBC) [Entitic mass] 28.5 pg 27.0-32.0 [facility] Mean corpuscular hemoglobin concentration (MCHC) determinationOrdered By: Danielle Niño on 11-03-2024 MCHC (RBC) [Mass/Vol] 33.1 g/dL 32-36 [facility] Mean platelet volume determi nationOrdered By: Danielle Niño on 11-03-2024 Platelet mean volume (Bld) [Entitic vol] 10.2 fL 6.2-12.0 [facility] Monocyte percentageOrdered B y: Danielle Niño on 11-03-2024 Monocytes/100 WBC (Bld) 13.2 % High 0-10 [facility] Neutrophil percentageOrdered By: Karenaustinjuany Hakeemshilohstalin on 11-03-2024 Neutrophils/100 WBC (Bld) 50.0 % 47-70 [facility] Nucleated red blood cell per centageOrdered By: Karenaustinpenelopeamanda Palacioshilohstalin on 11-03-2024 Nucleated RBC/100 WBC (Bld) [Ratio] 0 % 0-5 [facility] Platelet countOrdered By: Karen juan Hakeemshilohstalin on 11-03-2024 Platelets (Bld) [#/Vol] 215 10*3/uL 150-450 [facility] Potassium measurement (mass/ volume)Ordered By: Danielle Palacioshilohstalin on 11-03-2024 Potassium (Unsp spec) [Mass/Vol] 4.0 mmol/L 3.3-5.1 [facility] RBC Auto (Bld) [#/Vol]Ordere d By: Carlyjuany Hakeemshilohstalin on 11-03-2024 RBC (Bld) [#/Vol] 5.06 10*6/uL 4.6-6.2 [facility] Serum creatinine measurement (mass/volume)Ordered By: Carlypenelopeamanda Palacioshilohstalin on 11-03-2024 Creatinine [Mass/Vol] 0.93 mg/dL 0.70-1.20 [facility] Serum glucose measurement (m ass/volume)Ordered By: Danielle Niño on 11-03-2024 Glucose [Mass/Vol] 137 mg/dL High 70-99 [facility] Serum or plasma calcium adore urement (mass/volume)Ordered By: Dnaielle Niño on 11-03-2024 Calcium [Mass/Vol] 8.5 mg/dL 7.6-11.0 [facility] Serum or plasma urea nitroge n measurement (mass/volume)Ordered By: Danielle Niño on 11-03-2024 Urea nitrogen [Mass/Vol] 18 mg/dL 4-19 [facility] Sodium levelOrdered By: Carly juany Renay on 11-03-2024 Sodium [Moles/Vol] 140 mmol/L 133-145 [facility] White blood cell (WBC) count Ordered By: Danielle Niño on 11-03-2024 WBC (Bld) [#/Vol] 6.5 10*3/uL 4.4-11.0 [facility] Absolute lymphocyte countOrd ered By: Danielle Palacioshilohstalin on 10-06-2024 Lymphocytes Auto (Unsp spec) [#/Vol] 1.91 10*3/uL 0.83-4.51 [facility] Absolute neutrophil countOrd ered By: Efaustinongamanda Palacioshilohstalin on 10-06-2024 Neutrophils (Bld) [#/Vol] 3.6 10*3/uL 2.0-7.7 [facility] Anion gap in Serum or Plasma Ordered By: Danielle Niño on 10-06-2024 Anion gap [Moles/Vol] 10 mmol/L 5-15 [facility] Automated lymphocyte count a s percentage of total leukocytesOrdered By: Danielle Niño on 10-06-2024 Lymphocytes/100 WBC Auto (Unsp spec) 28.8 % 19-41 [facility] BUN/creatinine ratioOrdered By: Danielle Niño on 10-06-2024 Urea nitrogen/Creatinine [Mass ratio] 22.5 mg/mg High 10-20 [facility] Basophil percentageOrdered B y: Carlypenelopeamanda Palacioshilohe on 10-06-2024 Basophils/100 WBC (Bld) 0.9 % 0-1 [facility] Carbon dioxide, total [Moles /volume] in Central venous bloodOrdered By: Danielle Niño on 10-06-2024 CO2 [Moles/Vol] 24.5 mmol/L 21.0-32.0 [facility] Chloride assayOrdered By: Karen Niño on 10-06-2024 Chloride [Moles/Vol] 103 mmol/L 98-108 [facility] Eosinophil percentageOrdered By: Danielle Mirandae on 10-06-2024 Eosinophils/100 WBC (Bld) 3.5 % 0-5 [facility] Erythrocyte distribution wid th ratioOrdered By: Danielle Niño on 10-06-2024 Erythrocyte distribution width (RBC) [Ratio] 13.2 % 11.6-14.6 [facility] Erythrocyte distribution wid th standard deviationOrdered By: Danielle Niño on 10-06-2024 Erythrocyte distribution width (RBC) [Ratio] 41.1 fl 35.1-43.9 [facility] Glomerular filtration rate ( GFR) estimation/1.73 sq m using serum, plasma, or whole bOrdered By: Danielle Niño on 10-06-2024 GFR/1.73 sq M.predicted among non-blacks MDRD (S/P/Bld) [Vol rate/Area] 79 mL/min/{1.73_m2} >60 [facility] Comment on above: mL/min/1.73m2 CKD-EP I Creatinine Equation (2020) Hematocrit Auto (Bld) [Volum e fraction]Ordered By: Danielle Niño on 10-06-2024 Hematocrit (Bld) [Volume fraction] 42.0 % 40-54 [facility] Hemoglobin measurementOrdere d By: Danielle Niño on 10-06-2024 Hemoglobin (Bld) [Mass/Vol] 14.2 g/dL 13.0-16.5 [facility] Immature granulocytes/100 WB C Auto (Bld)Ordered By: Danielle Niño on 10-06-2024 Immature granulocytes/100 WBC (Bld) 0.300 % 0.0-0.9 [facility] Comment on above: IG% - Immature Granu locytes (promyelocytes, myelocytes and metamyelocytes) > 1% indicates that a LEFT SHIFT is Present. MCV (mean corpuscular volume ) determinationOrdered By: Danielle Niño on 10-06-2024 MCV (RBC) [Entitic vol] 84.7 fL 80-94 [facility] Mean corpuscular hemoglobin (MCH) determinationOrdered By: Danielle Niño on 10-06-2024 MCH (RBC) [Entitic mass] 28.6 pg 27.0-32.0 [facility] Mean corpuscular hemoglobin concentration (MCHC) determinationOrdered By: Danielle Niño on 10-06-2024 MCHC (RBC) [Mass/Vol] 33.8 g/dL 32-36 [facility] Mean platelet volume determi nationOrdered By: Karenaustinpenelopeamanda Niño on 10-06-2024 Platelet mean volume (Bld) [Entitic vol] 10.0 fL 6.2-12.0 [facility] Monocyte percentageOrdered B y: Carlypenelopeamanda Palacioshilohstalin on 10-06-2024 Monocytes/100 WBC (Bld) 11.6 % High 0-10 [facility] Neutrophil percentageOrdered By: Karenjuan Palacioshilohstalin on 10-06-2024 Neutrophils/100 WBC (Bld) 54.9 % 47-70 [facility] Nucleated red blood cell per centageOrdered By: Karenaustinpenelopeamanda Palacioshilohstalin on 10-06-2024 Nucleated RBC/100 WBC (Bld) [Ratio] 0 % 0-5 [facility] Platelet countOrdered By: Karen koleamanda Niño on 10-06-2024 Platelets (Bld) [#/Vol] 184 10*3/uL 150-450 [facility] Potassium measurement (mass/ volume)Ordered By: Danielle Niño on 10-06-2024 Potassium (Unsp spec) [Mass/Vol] 4.0 mmol/L 3.3-5.1 [facility] Comment on above: Hemolysis present, R esults could be affected. RBC Auto (Bld) [#/Vol]Ordere d By: Danielle Niño on 10-06-2024 RBC (Bld) [#/Vol] 4.96 10*6/uL 4.6-6.2 [facility] Serum creatinine measurement (mass/volume)Ordered By: Danielle Niño on 10-06-2024 Creatinine [Mass/Vol] 0.95 mg/dL 0.70-1.20 [facility] Serum glucose measurement (m ass/volume)Ordered By: Danielle Niño on 10-06-2024 Glucose [Mass/Vol] 121 mg/dL High 70-99 [facility] Serum or plasma calcium adore urement (mass/volume)Ordered By: Danielle Niño on 10-06-2024 Calcium [Mass/Vol] 8.3 mg/dL 7.6-11.0 [facility] Serum or plasma urea nitroge n measurement (mass/volume)Ordered By: Karenaustinpenelopeamanda Palacioshilohstalin on 10-06-2024 Urea nitrogen [Mass/Vol] 22 mg/dL High 4-19 [facility] Sodium levelOrdered By: Carly harrington Hakeemshilohstalin on 10-06-2024 Sodium [Moles/Vol] 138 mmol/L 133-145 [facility] White blood cell (WBC) count Ordered By: Karenaustinpenelopeamanda Palacioshilohstalin on 10-06-2024 WBC (Bld) [#/Vol] 6.6 10*3/uL 4.4-11.0 [facility] Absolute lymphocyte countOrd ered By: Karenaustinpenelopeamanda Palacioshilohstalin on 09-01-2024 Lymphocytes Auto (Unsp spec) [#/Vol] 1.84 10*3/uL 0.83-4.51 [facility] Absolute neutrophil countOrd ered By: Karenaustinpenelopeamanda Palacioshilohstalin on 09-01-2024 Neutrophils (Bld) [#/Vol] 4.3 10*3/uL 2.0-7.7 [facility] Anion gap in Serum or Plasma Ordered By: Karenaustinpenelopeamanda Palacioshilohstalin on 09-01-2024 Anion gap [Moles/Vol] 12 mmol/L 5-15 [facility] Automated lymphocyte count a s percentage of total leukocytesOrdered By: Danielle Niño on 09-01-2024 Lymphocytes/100 WBC Auto (Unsp spec) 24.7 % 19-41 [facility] BUN/creatinine ratioOrdered By: Danielle Palacioshilohstalin on 09-01-2024 Urea nitrogen/Creatinine [Mass ratio] 18.4 mg/mg 10-20 [facility] Basophil percentageOrdered B y: Charlotteamanda Palacioshilohstalin on 09-01-2024 Basophils/100 WBC (Bld) 0.8 % 0-1 [facility] Bilirubin directOrdered By: Danielle Niño on 09-01-2024 Bilirubin.direct [Mass/Vol] 0.14 mg/dL 0.00-0.30 [facility] Bilirubin, totalOrdered By: Danielle Niño on 09-01-2024 Bilirubin [Mass/Vol] 0.39 mg/dL 0.00-1.30 [facility] Carbon dioxide, total [Moles /volume] in Central venous bloodOrdered By: Danielle Niño on 09-01-2024 CO2 [Moles/Vol] 23.6 mmol/L 21.0-32.0 [facility] Chloride assayOrdered By: Karen Niño on 09-01-2024 Chloride [Moles/Vol] 101 mmol/L 98-108 [facility] Eosinophil percentageOrdered By: Danielle Niño on 09-01-2024 Eosinophils/100 WBC (Bld) 3.2 % 0-5 [facility] Erythrocyte distribution wid th ratioOrdered By: Danielle Niño on 09-01-2024 Erythrocyte distribution width (RBC) [Ratio] 13.5 % 11.6-14.6 [facility] Erythrocyte distribution wid th standard deviationOrdered By: Danielle Niño on 09-01-2024 Erythrocyte distribution width (RBC) [Ratio] 40.9 fl 35.1-43.9 [facility] Glomerular filtration rate ( GFR) estimation/1.73 sq m using serum, plasma, or whole bOrdered By: Danielle Niño on 09-01-2024 GFR/1.73 sq M.predicted among non-blacks MDRD (S/P/Bld) [Vol rate/Area] 67 mL/min/{1.73_m2} >60 [facility] Comment on above: mL/min/1.73m2 CKD-EP I Creatinine Equation (2020) Hematocrit Auto (Bld) [Volum e fraction]Ordered By: Danielle Niño on 09-01-2024 Hematocrit (Bld) [Volume fraction] 41.5 % 40-54 [facility] Hemoglobin A1c percentageOrd ered By: Danielle Niño on 09-01-2024 HbA1c (Bld) [Mass fraction] 6.9 % High <5.7 [facility] Comment on above: Normal < 5.7 % Predi abetic 5.7 - 6.4 % Diabetic >or= 6.5 % Please note range changes. Hemoglobin measurementOrdere d By: Danielle Niño on 09-01-2024 Hemoglobin (Bld) [Mass/Vol] 14.1 g/dL 13.0-16.5 [facility] Immature granulocytes/100 WB C Auto (Bld)Ordered By: Danielle Niño on 09-01-2024 Immature granulocytes/100 WBC (Bld) 0.500 % 0.0-0.9 [facility] Comment on above: IG% - Immature Granu locytes (promyelocytes, myelocytes and metamyelocytes) > 1% indicates that a LEFT SHIFT is Present. Laboratory - Chemistry and C hemistry - challengeOrdered By: Danielle Niño on 09-01-2024 AST [Catalytic activity/Vol] 23 U/L <38 [facility] MCV (mean corpuscular volume ) determinationOrdered By: Danielle Niño on 09-01-2024 MCV (RBC) [Entitic vol] 83.3 fL 80-94 [facility] Mean corpuscular hemoglobin (MCH) determinationOrdered By: Danielle Niño on 09-01-2024 MCH (RBC) [Entitic mass] 28.3 pg 27.0-32.0 [facility] Mean corpuscular hemoglobin concentration (MCHC) determinationOrdered By: Danielle Niño on 09-01-2024 MCHC (RBC) [Mass/Vol] 34.0 g/dL 32-36 [facility] Mean platelet volume determi nationOrdered By: Danielle Niño on 09-01-2024 Platelet mean volume (Bld) [Entitic vol] 9.7 fL 6.2-12.0 [facility] Monocyte percentageOrdered B y: Danielle Niño on 09-01-2024 Monocytes/100 WBC (Bld) 12.5 % High 0-10 [facility] Neutrophil percentageOrdered By: Karenjuan Niño on 09-01-2024 Neutrophils/100 WBC (Bld) 58.3 % 47-70 [facility] Nucleated red blood cell per centageOrdered By: Danielle Niño on 09-01-2024 Nucleated RBC/100 WBC (Bld) [Ratio] 0 % 0-5 [facility] Platelet countOrdered By: Karen Niño on 09-01-2024 Platelets (Bld) [#/Vol] 196 10*3/uL 150-450 [facility] Potassium measurement (mass/ volume)Ordered By: Danielle Niño on 09-01-2024 Potassium (Unsp spec) [Mass/Vol] 4.3 mmol/L 3.3-5.1 [facility] RBC Auto (Bld) [#/Vol]Ordere d By: Danielle Niño on 09-01-2024 RBC (Bld) [#/Vol] 4.98 10*6/uL 4.6-6.2 [facility] Serum creatinine measurement (mass/volume)Ordered By: Danielle Niño on 09-01-2024 Creatinine [Mass/Vol] 1.10 mg/dL 0.70-1.20 [facility] Serum globulin measurementOr dered By: Danielle Niño on 09-01-2024 Globulin (S) [Mass/Vol] 2.4 g/dL 2.2-4.2 [facility] Serum glucose measurement (m ass/volume)Ordered By: Danielle Niño on 09-01-2024 Glucose [Mass/Vol] 140 mg/dL High 70-99 [facility] Serum or plasma alanine chilel otransferase (ALT) measurementOrdered By: Danielle Niño on 09-01-2024 ALT [Catalytic activity/Vol] 12 U/L <47 [facility] Serum or plasma albumin adore urement (mass/volume)Ordered By: Danielle Niño on 09-01-2024 Albumin [Mass/Vol] 3.6 g/dL 3.4-4.8 [facility] Serum or plasma alkaline aruna sphatase measurementOrdered By: Danielle Niño 09-01-2024 ALP [Catalytic activity/Vol] 53 U/L 40-129 [facility] Serum or plasma calcium adore urement (mass/volume)Ordered By: Danielle Niño on 09-01-2024 Calcium [Mass/Vol] 8.8 mg/dL 7.6-11.0 [facility] Serum or plasma urea nitroge n measurement (mass/volume)Ordered By: Danielle Niño on 09-01-2024 Urea nitrogen [Mass/Vol] 20 mg/dL High 4- [facility] Sodium levelOrdered By: Carly Niño on 09-01-2024 Sodium [Moles/Vol] 137 mmol/L 133-145 [facility] Total proteinOrdered By: Pravin Niño on 09-01-2024 Protein [Mass/Vol] 6.0 g/dL 5.9-8.4 [facility] White blood cell (WBC) count Ordered By: Danielle Niño on 09-01-2024 WBC (Bld) [#/Vol] 7.5 10*3/uL 4.4-11.0 [facility] Absolute lymphocyte countOrd ered By: Danielle Niño on 08-04-2024 Lymphocytes Auto (Unsp spec) [#/Vol] 2.05 10*3/uL 0.83-4.51 [facility] Absolute neutrophil countOrd ered By: Danielle Niño on 08-04-2024 Neutrophils (Bld) [#/Vol] 4.1 10*3/uL 2.0-7.7 [facility] Anion gap in Serum or Plasma Ordered By: Danielle Niño on 08-04-2024 Anion gap [Moles/Vol] 12 mmol/L 5-15 [facility] Automated lymphocyte count a s percentage of total leukocytesOrdered By: Danielle Niño on 08-04-2024 Lymphocytes/100 WBC Auto (Unsp spec) 28.3 % 19- [facility] BUN/creatinine ratioOrdered By: Danielle Niño on 08-04-2024 Urea nitrogen/Creatinine [Mass ratio] 17.9 mg/mg 10-20 [facility] Basophil percentageOrdered B y: Danielle Niño on 08-04-2024 Basophils/100 WBC (Bld) 1.0 % 0-1 [facility] Carbon dioxide, total [Moles /volume] in Central venous bloodOrdered By: Danielle Niño on 08-04-2024 CO2 [Moles/Vol] 24.3 mmol/L 21.0-32.0 [facility] Chloride assayOrdered By: Karen Niño on 08-04-2024 Chloride [Moles/Vol] 102 mmol/L 98-108 [facility] Eosinophil percentageOrdered By: Danielle Niño on 08-04-2024 Eosinophils/100 WBC (Bld) 3.2 % 0-5 [facility] Erythrocyte distribution wid th ratioOrdered By: Danielle Niño on 08-04-2024 Erythrocyte distribution width (RBC) [Ratio] 13.1 % 11.6-14.6 [facility] Erythrocyte distribution wid th standard deviationOrdered By: Danielle Niño on 08-04-2024 Erythrocyte distribution width (RBC) [Ratio] 40.9 fl 35.1-43.9 [facility] Glomerular filtration rate ( GFR) estimation/1.73 sq m using serum, plasma, or whole bOrdered By: Danielle Niño on 08-04-2024 GFR/1.73 sq M.predicted among non-blacks MDRD (S/P/Bld) [Vol rate/Area] 67 mL/min/{1.73_m2} >60 [facility] Comment on above: mL/min/1.73m2 CKD-EP I Creatinine Equation (2020) Hematocrit Auto (Bld) [Volum e fraction]Ordered By: Danielle Niño on 08-04-2024 Hematocrit (Bld) [Volume fraction] 44.6 % 40-54 [facility] Hemoglobin measurementOrdere d By: Danielle Niño on 08-04-2024 Hemoglobin (Bld) [Mass/Vol] 14.9 g/dL 13.0-16.5 [facility] Immature granulocytes/100 WB C Auto (Bld)Ordered By: Danielle Niño on 08-04-2024 Immature granulocytes/100 WBC (Bld) 0.400 % 0.0-0.9 [facility] [facility] Comment on above: IG% - Immature Granu locytes (promyelocytes, myelocytes and metamyelocytes) > 1% indicates that a LEFT SHIFT is Present. MCV (mean corpuscular volume ) determinationOrdered By: Danielle Niño on 08-04-2024 MCV (RBC) [Entitic vol] 84.5 fL 80-94 [facility] Mean corpuscular hemoglobin (MCH) determinationOrdered By: Danielle Niño on 08-04-2024 MCH (RBC) [Entitic mass] 28.2 pg 27.0-32.0 [facility] Mean corpuscular hemoglobin concentration (MCHC) determinationOrdered By: Danielle Niño on 08-04-2024 MCHC (RBC) [Mass/Vol] 33.4 g/dL 32-36 [facility] Mean platelet volume determi nationOrdered By: Danielle Niño on 08-04-2024 Platelet mean volume (Bld) [Entitic vol] 9.9 fL 6.2-12.0 [facility] Monocyte percentageOrdered B y: Danielle Niño on 08-04-2024 Monocytes/100 WBC (Bld) 10.8 % High 0-10 [facility] Neutrophil percentageOrdered By: Danielle Niño on 08-04-2024 Neutrophils/100 WBC (Bld) 56.3 % 47-70 [facility] Nucleated red blood cell per centageOrdered By: Danielle Niño on 08-04-2024 Nucleated RBC/100 WBC (Bld) [Ratio] 0 % 0-5 [facility] Platelet countOrdered By: Karen Niño on 08-04-2024 Platelets (Bld) [#/Vol] 229 10*3/uL 150-450 [facility] Potassium measurement (mass/ volume)Ordered By: Danielle Niño on 08-04-2024 Potassium (Unsp spec) [Mass/Vol] 4.5 mmol/L 3.3-5.1 [facility] RBC Auto (Bld) [#/Vol]Ordere d By: Danielle Niño on 08-04-2024 RBC (Bld) [#/Vol] 5.28 10*6/uL 4.6-6.2 [facility] Serum creatinine measurement (mass/volume)Ordered By: Danielle Niño on 08-04-2024 Creatinine [Mass/Vol] 1.09 mg/dL 0.70-1.20 [facility] Serum glucose measurement (m ass/volume)Ordered By: Danielle Niño on 08-04-2024 Glucose [Mass/Vol] 141 mg/dL High 70-99 [facility] Serum or plasma calcium adore urement (mass/volume)Ordered By: Danielle Niño on 08-04-2024 Calcium [Mass/Vol] 8.8 mg/dL 7.6-11.0 [facility] Serum or plasma urea nitroge n measurement (mass/volume)Ordered By: Danielle Niño on 08-04-2024 Urea nitrogen [Mass/Vol] 20 mg/dL High 4-19 [facility] Sodium levelOrdered By: Carly juany Renay on 08-04-2024 Sodium [Moles/Vol] 138 mmol/L 133-145 [facility] White blood cell (WBC) count Ordered By: Danielle Niño on 08-04-2024 WBC (Bld) [#/Vol] 7.3 10*3/uL 4.4-11.0 [facility] Absolute lymphocyte countOrd ered By: Danielle Niño on 06-30-2024 Lymphocytes Auto (Unsp spec) [#/Vol] 1.98 10*3/uL 0.83-4.51 [facility] Absolute neutrophil countOrd ered By: Danielle Niño on 06-30-2024 Neutrophils (Bld) [#/Vol] 4.4 10*3/uL 2.0-7.7 [facility] Anion gap in Serum or Plasma Ordered By: Danielle Niño on 06-30-2024 Anion gap [Moles/Vol] 8 mmol/L -15 [facility] Automated lymphocyte count a s percentage of total leukocytesOrdered By: Danielle Niño on 06-30-2024 Lymphocytes/100 WBC Auto (Unsp spec) 26.4 % - [facility] BUN/creatinine ratioOrdered By: Danielle Niño on 06-30-2024 Urea nitrogen/Creatinine [Mass ratio] 18.3 mg/mg 10-20 [facility] Basophil percentageOrdered B y: Danielle Niño on 06-30-2024 Basophils/100 WBC (Bld) 0.8 % 0-1 [facility] Carbon dioxide, total [Moles /volume] in Central venous bloodOrdered By: Danielle Niño on 06-30-2024 CO2 [Moles/Vol] 25.6 mmol/L 21.0-32.0 [facility] Chloride assayOrdered By: Karen Niño on 06-30-2024 Chloride [Moles/Vol] 103 mmol/L 98-108 [facility] Eosinophil percentageOrdered By: juan Niño on 06-30-2024 Eosinophils/100 WBC (Bld) 2.5 % 0-5 [facility] Erythrocyte distribution wid th ratioOrdered By: austincodyamanda Niño on 06-30-2024 Erythrocyte distribution width (RBC) [Ratio] 13.1 % 11.6-14.6 [facility] Erythrocyte distribution wid th standard deviationOrdered By: austincodyamanda Niño on 06-30-2024 Erythrocyte distribution width (RBC) [Ratio] 40.3 fl 35.1-43.9 [facility] Glomerular filtration rate ( GFR) estimation/1.73 sq m using serum, plasma, or whole bOrdered By: Danielle Niño on 06-30-2024 GFR/1.73 sq M.predicted among non-blacks MDRD (S/P/Bld) [Vol rate/Area] 72 mL/min/{1.73_m2} >60 [facility] Comment on above: mL/min/1.73m2 CKD-EP I Creatinine Equation (2020) Hematocrit Auto (Bld) [Volum e fraction]Ordered By: Danielle Niño on 06-30-2024 Hematocrit (Bld) [Volume fraction] 42.8 % 40-54 [facility] Hemoglobin measurementOrdere d By: Danielle Niño on 06-30-2024 Hemoglobin (Bld) [Mass/Vol] 14.3 g/dL 13.0-16.5 [facility] Immature granulocytes/100 WB C Auto (Bld)Ordered By: Danielle Niño on 06-30-2024 Immature granulocytes/100 WBC (Bld) 0.300 % 0.0-0.9 [facility] Comment on above: IG% - Immature Granu locytes (promyelocytes, myelocytes and metamyelocytes) > 1% indicates that a LEFT SHIFT is Present. MCV (mean corpuscular volume ) determinationOrdered By: Danielle Niño on 06-30-2024 MCV (RBC) [Entitic vol] 84.4 fL 80-94 [facility] Mean corpuscular hemoglobin (MCH) determinationOrdered By: Danielle Niño on 06-30-2024 MCH (RBC) [Entitic mass] 28.2 pg 27.0-32.0 [facility] Mean corpuscular hemoglobin concentration (MCHC) determinationOrdered By: Danielle Niño on 06-30-2024 MCHC (RBC) [Mass/Vol] 33.4 g/dL 32-36 [facility] Mean platelet volume determi nationOrdered By: Danielle Niño on 06-30-2024 Platelet mean volume (Bld) [Entitic vol] 10.1 fL 6.2-12.0 [facility] Monocyte percentageOrdered B y: Danielle Niño on 06-30-2024 Monocytes/100 WBC (Bld) 11.9 % High 0-10 [facility] Neutrophil percentageOrdered By: Danielle Niño on 06-30-2024 Neutrophils/100 WBC (Bld) 58.1 % 47-70 [facility] Nucleated red blood cell per centageOrdered By: Danielle Niño on 06-30-2024 Nucleated RBC/100 WBC (Bld) [Ratio] 0 % 0-5 [facility] Platelet countOrdered By: Karen Niño on 06-30-2024 Platelets (Bld) [#/Vol] 184 10*3/uL 150-450 [facility] Potassium measurement (mass/ volume)Ordered By: Danielle Niño on 06-30-2024 Potassium (Unsp spec) [Mass/Vol] 4.3 mmol/L 3.3-5.1 [facility] RBC Auto (Bld) [#/Vol]Ordere d By: Danielle Oleghe on 06-30-2024 RBC (Bld) [#/Vol] 5.07 10*6/uL 4.6-6.2 [facility] Serum creatinine measurement (mass/volume)Ordered By: Danielle Niño on 06-30-2024 Creatinine [Mass/Vol] 1.03 mg/dL 0.70-1.20 [facility] Serum glucose measurement (m ass/volume)Ordered By: Danielle Niño on 06-30-2024 Glucose [Mass/Vol] 130 mg/dL High 70-99 [facility] Serum or plasma calcium adore urement (mass/volume)Ordered By: Danielle Niño on 06-30-2024 Calcium [Mass/Vol] 8.6 mg/dL 7.6-11.0 [facility] Serum or plasma urea nitroge n measurement (mass/volume)Ordered By: Danielle Niño on 06-30-2024 Urea nitrogen [Mass/Vol] 19 mg/dL 4-19 [facility] Sodium levelOrdered By: Carly juany Renay on 06-30-2024 Sodium [Moles/Vol] 137 mmol/L 133-145 [facility] White blood cell (WBC) count Ordered By: Danielle Niño on 06-30-2024 WBC (Bld) [#/Vol] 7.5 10*3/uL 4.4-11.0 [facility] Absolute lymphocyte countOrd ered By: Danielle Niño on 06-02-2024 Lymphocytes Auto (Unsp spec) [#/Vol] 1.76 10*3/uL 0.83-4.51 [facility] Absolute neutrophil countOrd ered By: Danielle Niño on 06-02-2024 Neutrophils (Bld) [#/Vol] 4.5 10*3/uL 2.0-7.7 [facility] Anion gap in Serum or Plasma Ordered By: Danielle Niño on 06-02-2024 Anion gap [Moles/Vol] 11 mmol/L 5- [facility] Automated lymphocyte count a s percentage of total leukocytesOrdered By: Dainelle Niño on 06-02-2024 Lymphocytes/100 WBC Auto (Unsp spec) 23.1 % 19-41 [facility] BUN/creatinine ratioOrdered By: Danielle Niño on 06-02-2024 Urea nitrogen/Creatinine [Mass ratio] 17.9 mg/mg 10-20 [facility] Basophil percentageOrdered B y: Carlypenelopeamanda Palacioshilohstalin on 06-02-2024 Basophils/100 WBC (Bld) 0.7 % 0-1 [facility] Bilirubin directOrdered By: Danielle Niño on 06-02-2024 Bilirubin.direct [Mass/Vol] 0.29 mg/dL 0.00-0.30 [facility] Bilirubin, totalOrdered By: Danielle Niño on 06-02-2024 Bilirubin [Mass/Vol] 0.77 mg/dL 0.00-1.30 [facility] Carbon dioxide, total [Moles /volume] in Central venous bloodOrdered By: Danielle Niño on 06-02-2024 CO2 [Moles/Vol] 24.4 mmol/L 21.0-32.0 [facility] Chloride assayOrdered By: Karen austinjuany Niño on 06-02-2024 Chloride [Moles/Vol] 101 mmol/L 98-108 [facility] Eosinophil percentageOrdered By: Danielle Niño on 06-02-2024 Eosinophils/100 WBC (Bld) 2.5 % 0-5 [facility] Erythrocyte distribution wid th (RBC) [Ratio]Ordered By: Danielle Niño on 06-02-2024 Erythrocyte distribution width (RBC) [Entitic vol] 39.9 fL 35.1-43.9 [facility] Erythrocyte distribution wid th ratioOrdered By: Danielle Niño on 06-02-2024 Erythrocyte distribution width (RBC) [Ratio] 13.0 % 11.6-14.6 [facility] Erythrocyte distribution wid th standard deviationOrdered By: Danielle Niño on 06-02-2024 Erythrocyte distribution width (RBC) [Ratio] 39.9 fl 35.1-43.9 [facility] GFR/1.73 sq M.predicted venkata g non-blacks MDRD (S/P/Bld) [Vol rate/Area]Ordered By: Danielle Niño on 06-02-2024 Estimated GFR (MDRD) Non-Af Amer 79 >60 [facility] Comment on above: mL/min/1.73m2 CKD-EP I Creatinine Equation (2020) Glomerular filtration rate ( GFR) estimation/1.73 sq m using serum, plasma, or whole bOrdered By: Danielle Niño on 06-02-2024 GFR/1.73 sq M.predicted among non-blacks MDRD (S/P/Bld) [Vol rate/Area] 79 mL/min/{1.73_m2} >60 [facility] Comment on above: mL/min/1.73m2 CKD-EP I Creatinine Equation (2020) Hematocrit Auto (Bld) [Volum e fraction]Ordered By: Danielle Niño on 06-02-2024 Hematocrit (Bld) [Volume fraction] 42.2 % 40-54 [facility] Hemoglobin A1c percentageOrd ered By: Danielle Niño on 06-02-2024 HbA1c (Bld) [Mass fraction] 6.8 % High <5.7 [facility] Comment on above: Normal < 5.7 % Predi abetic 5.7 - 6.4 % Diabetic >or= 6.5 % Please note range changes. Hemoglobin measurementOrdere d By: Danielle Niño on 06-02-2024 Hemoglobin (Bld) [Mass/Vol] 14.1 g/dL 13.0-16.5 [facility] Immature granulocytes/100 WB C Auto (Bld)Ordered By: Danielle Niño on 06-02-2024 Immature granulocytes/100 WBC (Bld) 0.300 % 0.0-0.9 [facility] Comment on above: IG% - Immature Granu locytes (promyelocytes, myelocytes and metamyelocytes) > 1% indicates that a LEFT SHIFT is Present. Laboratory - Chemistry and C hemistry - challengeOrdered By: Danielle Niño on 06-02-2024 AST [Catalytic activity/Vol] 22 U/L <38 [facility] Lymphocytes Auto (Unsp spec) [#/Vol]Ordered By: Danielle Mirandastalin on 06-02-2024 Lymphocytes (Bld) [#/Vol] 1.76 10*3/uL 0.83-4.5 1 [facility] Lymphocytes/100 WBC Auto (Un sp spec)Ordered By: Danielle Mirandastalin on 06-02-2024 Lymphocytes/100 WBC (Bld) 23.1 % 19-41 [facility] MCV (mean corpuscular volume ) determinationOrdered By: Karenaustinjuany Hakeemshilohstalin on 06-02-2024 MCV (RBC) [Entitic vol] 84.6 fL 80-94 [facility] Mean corpuscular hemoglobin (MCH) determinationOrdered By: Danielle Palacioshilohstalin on 06-02-2024 MCH (RBC) [Entitic mass] 28.3 pg 27.0-32.0 [facility] Mean corpuscular hemoglobin concentration (MCHC) determinationOrdered By: Danielle Palacioshilohstalin on 06-02-2024 MCHC (RBC) [Mass/Vol] 33.4 g/dL 32-36 [facility] Mean platelet volume determi nationOrdered By: Danielle Hakeemshilohstalin on 06-02-2024 Platelet mean volume (Bld) [Entitic vol] 10.2 fL 6.2-12.0 [facility] Monocyte percentageOrdered B y: Charlotteamanda Palacioshilohstalin on 06-02-2024 Monocytes/100 WBC (Bld) 14.2 % High 0-10 [facility] Neutrophil percentageOrdered By: Karenaustinjuany Hakeemshilohstalin on 06-02-2024 Neutrophils/100 WBC (Bld) 59.2 % 47-70 [facility] Nucleated red blood cell per centageOrdered By: Karenaustinjuany Hakeemshilohstalin on 06-02-2024 Nucleated RBC/100 WBC (Bld) [Ratio] 0 % 0-5 [facility] Platelet countOrdered By: Ef juan Hakeemshilohe on 06-02-2024 Platelets (Bld) [#/Vol] 214 10*3/uL 150-450 [facility] Potassium (Unsp spec) [Mass/ Vol]Ordered By: Karenaustinjuany Hakeemshilohstalin on 06-02-2024 Potassium [Moles/Vol] 4.0 mmol/L 3.3-5.1 [facility] Potassium measurement (mass/ volume)Ordered By: Danielle Niño on 06-02-2024 Potassium (Unsp spec) [Mass/Vol] 4.0 mmol/L 3.3-5.1 [facility] RBC Auto (Bld) [#/Vol]Ordere d By: Danielle Niño on 06-02-2024 RBC (Bld) [#/Vol] 4.99 10*6/uL 4.6-6.2 [facility] Serum creatinine measurement (mass/volume)Ordered By: Danielle Niño on 06-02-2024 Creatinine [Mass/Vol] 0.96 mg/dL 0.70-1.20 [facility] Serum globulin measurementOr dered By: Danielle Niño on 06-02-2024 Globulin (S) [Mass/Vol] 2.5 g/dL 2.2-4.2 [facility] Serum glucose measurement (m ass/volume)Ordered By: Danielle Niño on 06-02-2024 Glucose [Mass/Vol] 149 mg/dL High 70-99 [facility] Serum or plasma alanine chilel otransferase (ALT) measurementOrdered By: Danielle Niño on 06-02-2024 ALT [Catalytic activity/Vol] 12 U/L <47 [facility] Serum or plasma albumin adore urement (mass/volume)Ordered By: Danielle Niño 06-02-2024 Albumin [Mass/Vol] 3.5 g/dL 3.4-4.8 [facility] Serum or plasma alkaline aruna sphatase measurementOrdered By: Danielle Niño 06-02-2024 ALP [Catalytic activity/Vol] 53 U/L 40-129 [facility] Serum or plasma calcium adore urement (mass/volume)Ordered By: Danielle Niño on 06-02-2024 Calcium [Mass/Vol] 8.7 mg/dL 7.6-11.0 [facility] Serum or plasma urea nitroge n measurement (mass/volume)Ordered By: Danielle Niño on 06-02-2024 Urea nitrogen [Mass/Vol] 17 mg/dL 4-19 [facility] Sodium levelOrdered By: Carly Niño on 06-02-2024 Sodium [Moles/Vol] 137 mmol/L 133-145 [facility] Total proteinOrdered By: Pravin Niño on 06-02-2024 Protein [Mass/Vol] 6.0 g/dL 5.9-8.4 [facility] White blood cell (WBC) count Ordered By: Danielle Niño on 06-02-2024 WBC (Bld) [#/Vol] 7.6 10*3/uL 4.4-11.0 [facility] Absolute lymphocyte countOrd ered By: Danielle Niño on 05-05-2024 Lymphocytes Auto (Unsp spec) [#/Vol] 1.75 10*3/uL 0.83-4.51 [facility] Absolute neutrophil countOrd ered By: Danielle Niño on 05-05-2024 Neutrophils (Bld) [#/Vol] 4.3 10*3/uL 2.0-7.7 [facility] Anion gap in Serum or Plasma Ordered By: Danielle Niño on 05-05-2024 Anion gap [Moles/Vol] 10 mmol/L 5-15 [facility] Automated lymphocyte count a s percentage of total leukocytesOrdered By: Danielle Niño on 05-05-2024 Lymphocytes/100 WBC Auto (Unsp spec) 24.7 % 19-41 [facility] BUN/creatinine ratioOrdered By: Danielle Niño on 05-05-2024 Urea nitrogen/Creatinine [Mass ratio] 25.1 mg/mg High 10-20 [facility] Basophil percentageOrdered B y: Danielle Niño on 05-05-2024 Basophils/100 WBC (Bld) 0.7 % 0-1 [facility] Carbon dioxide, total [Moles /volume] in Central venous bloodOrdered By: Danielle Niño on 05-05-2024 CO2 [Moles/Vol] 24.1 mmol/L 21.0-32.0 [facility] Chloride assayOrdered By: Karen Niño on 05-05-2024 Chloride [Moles/Vol] 102 mmol/L 98-108 [facility] Eosinophil percentageOrdered By: Danielle Niño on 05-05-2024 Eosinophils/100 WBC (Bld) 2.5 % 0-5 [facility] Erythrocyte distribution wid th (RBC) [Ratio]Ordered By: Danielle Niño on 05-05-2024 Erythrocyte distribution width (RBC) [Entitic vol] 39.3 fL 35.1-43.9 [facility] Erythrocyte distribution wid th ratioOrdered By: Danielle Niño on 05-05-2024 Erythrocyte distribution width (RBC) [Ratio] 12.5 % 11.6-14.6 [facility] Erythrocyte distribution wid th standard deviationOrdered By: Danielle Niño on 05-05-2024 Erythrocyte distribution width (RBC) [Ratio] 39.3 fl 35.1-43.9 [facility] GFR/1.73 sq M.predicted venkata g non-blacks MDRD (S/P/Bld) [Vol rate/Area]Ordered By: Danielle Niño on 05-05-2024 Estimated GFR (MDRD) Non-Af Amer 77 >60 [facility] Comment on above: mL/min/1.73m2 CKD-EP I Creatinine Equation (2020) Glomerular filtration rate ( GFR) estimation/1.73 sq m using serum, plasma, or whole bOrdered By: Danielle Niño 05-05-2024 GFR/1.73 sq M.predicted among non-blacks MDRD (S/P/Bld) [Vol rate/Area] 77 mL/min/{1.73_m2} >60 [facility] Comment on above: mL/min/1.73m2 CKD-EP I Creatinine Equation (2020) Hematocrit Auto (Bld) [Volum e fraction]Ordered By: Danielle Niño on 05-05-2024 Hematocrit (Bld) [Volume fraction] 41.0 % 40-54 [facility] Hemoglobin measurementOrdere d By: Danielle Niño on 05-05-2024 Hemoglobin (Bld) [Mass/Vol] 14.3 g/dL 13.0-16.5 [facility] Immature granulocytes/100 WB C Auto (Bld)Ordered By: Danielle Niño on 05-05-2024 Immature granulocytes/100 WBC (Bld) 0.300 % 0.0-0.9 [facility] Comment on above: IG% - Immature Granu locytes (promyelocytes, myelocytes and metamyelocytes) > 1% indicates that a LEFT SHIFT is Present. Lymphocytes Auto (Unsp spec) [#/Vol]Ordered By: Danielle Niño on 05-05-2024 Lymphocytes (Bld) [#/Vol] 1.75 10*3/uL 0.83-4.5 1 [facility] Lymphocytes/100 WBC Auto (Un sp spec)Ordered By: Danielle Niño on 05-05-2024 Lymphocytes/100 WBC (Bld) 24.7 % 19-41 [facility] MCV (mean corpuscular volume ) determinationOrdered By: Danielle Niño on 05-05-2024 MCV (RBC) [Entitic vol] 86.1 fL 80-94 [facility] Mean corpuscular hemoglobin (MCH) determinationOrdered By: austincodyamanda Niño on 05-05-2024 MCH (RBC) [Entitic mass] 30.0 pg 27.0-32.0 [facility] Mean corpuscular hemoglobin concentration (MCHC) determinationOrdered By: Carlycodyamanda Niño on 05-05-2024 MCHC (RBC) [Mass/Vol] 34.9 g/dL 32-36 [facility] Mean platelet volume determi nationOrdered By: Danielle Niño on 05-05-2024 Platelet mean volume (Bld) [Entitic vol] 10.0 fL 6.2-12.0 [facility] Monocyte percentageOrdered B y: Danielle Niño on 05-05-2024 Monocytes/100 WBC (Bld) 11.3 % High 0-10 [facility] Neutrophil percentageOrdered By: Danielle Niño on 05-05-2024 Neutrophils/100 WBC (Bld) 60.5 % 47-70 [facility] Nucleated red blood cell per centageOrdered By: Danielle Niño on 05-05-2024 Nucleated RBC/100 WBC (Bld) [Ratio] 0 % 0-5 [facility] Platelet countOrdered By: Karen Niño on 05-05-2024 Platelets (Bld) [#/Vol] 174 10*3/uL 150-450 [facility] Potassium (Unsp spec) [Mass/ Vol]Ordered By: Danielle Niño on 05-05-2024 Potassium [Moles/Vol] 4.0 mmol/L 3.3-5.1 [facility] Potassium measurement (mass/ volume)Ordered By: Danielle Niño on 05-05-2024 Potassium (Unsp spec) [Mass/Vol] 4.0 mmol/L 3.3-5.1 [facility] RBC Auto (Bld) [#/Vol]Ordere d By: Danielle Niño on 05-05-2024 RBC (Bld) [#/Vol] 4.76 10*6/uL 4.6-6.2 [facility] Serum creatinine measurement (mass/volume)Ordered By: Danielle Niño on 05-05-2024 Creatinine [Mass/Vol] 0.98 mg/dL 0.70-1.20 [facility] Serum glucose measurement (m ass/volume)Ordered By: Danielle Niño on 05-05-2024 Glucose [Mass/Vol] 116 mg/dL High 70-99 [facility] Serum or plasma calcium adore urement (mass/volume)Ordered By: Danielle Niño on 05-05-2024 Calcium [Mass/Vol] 8.2 mg/dL 7.6-11.0 [facility] Serum or plasma urea nitroge n measurement (mass/volume)Ordered By: Danielle Niño on 05-05-2024 Urea nitrogen [Mass/Vol] 25 mg/dL High 4-19 [facility] Sodium levelOrdered By: Carly Niño on 05-05-2024 Sodium [Moles/Vol] 137 mmol/L 133-145 [facility] White blood cell (WBC) count Ordered By: Danielle Niño on 05-05-2024 WBC (Bld) [#/Vol] 7.1 10*3/uL 4.4-11.0 [facility] Absolute lymphocyte countOrd ered By: Efjuan Mirandae on 04-07-2024 Lymphocytes Auto (Unsp spec) [#/Vol] 1.79 10*3/uL 0.83-4.51 [facility] Absolute neutrophil countOrd ered By: Efaustinongamanda Mirandae on 04-07-2024 Neutrophils (Bld) [#/Vol] 3.9 10*3/uL 2.0-7.7 [facility] Automated lymphocyte count a s percentage of total leukocytesOrdered By: Danielle Mirandae on 04-07-2024 Lymphocytes/100 WBC Auto (Unsp spec) 27.1 % 19-41 [facility] Basophil percentageOrdered B y: Danielle Mirandae on 04-07-2024 Basophils/100 WBC (Bld) 0.9 % 0-1 [facility] Blood urea nitrogen (BUN)/cr eatinine ratioOrdered By: Danielle Mirandae on 04-07-2024 Urea nitrogen/Creatinine [Mass ratio] 19.8 mg/mg 10-20 [facility] Carbon dioxide measurementOr dered By: Danielle Mirandae on 04-07-2024 CO2 [Moles/Vol] 28.0 mmol/L 21.0-32.0 [facility] Chloride measurementOrdered By: Carlycodyamanda Palacioshilohe on 04-07-2024 Chloride [Moles/Vol] 104 mmol/L 98-107 [facility] Eosinophil percentageOrdered By: Efewongbe Ruthe on 04-07-2024 Eosinophils/100 WBC (Bld) 2.3 % 0-5 [facility] Erythrocyte distribution wid th (RBC) [Ratio]Ordered By: Efewongbe Ruthe on 04-07-2024 Erythrocyte distribution width (RBC) [Entitic vol] 38.6 fL 35.1-43.9 [facility] Erythrocyte distribution wid th ratioOrdered By: Efaustinongbe Ruthe on 04-07-2024 Erythrocyte distribution width (RBC) [Ratio] 12.1 % 11.6-14.6 [facility] Erythrocyte distribution wid th standard deviationOrdered By: Danielle Niño on 04-07-2024 Erythrocyte distribution width (RBC) [Ratio] 38.6 fl 35.1-43.9 [facility] Estimated glomerular filtrat ion rate (GFR) AmericanOrdered By: Danielle Niño on 04-07-2024 Estimated GFR (MDRD) Amer 81 mL/min >60 [facility] Comment on above: GFR Calc Glomerular filtration rate ( GFR) estimationOrdered By: Danielle Niño on 04-07-2024 Estimated GFR (MDRD) Non-Af Amer 67 mL/min >60 [facility] Comment on above: Non- GFR Calc GFR/1.73 sq M.predicted among non-blacks MDRD (S/P/Bld) [Vol rate/Area] 67 mL/min/{1.73_m2} >60 [facility] Comment on above: Non- GFR Calc Glucose measurementOrdered B y: Danielle Niño on 04-07-2024 Glucose [Mass/Vol] 117 mg/dL High 74-106 [facility] Comment on above: Fasting Glucose resu lt from 100 to 125 mg/dL suggests IMPAIRED HOMEOSTASIS per A.D.A. criteria. Hematocrit Auto (Bld) [Volum e fraction]Ordered By: Danielle Niño on 04-07-2024 Hematocrit (Bld) [Volume fraction] 42.7 % 40-54 [facility] Hemoglobin measurementOrdere d By: Danielle Niño on 04-07-2024 Hemoglobin (Bld) [Mass/Vol] 13.9 g/dL 13.0-16.5 [facility] Immature granulocytes/100 WB C Auto (Bld)Ordered By: Danielle Niño on 04-07-2024 Immature granulocytes/100 WBC (Bld) 0.500 % 0.0-0.9 [facility] Comment on above: IG% - Immature Granu locytes (promyelocytes, myelocytes and metamyelocytes) > 1% indicates that a LEFT SHIFT is Present. Lymphocytes Auto (Unsp spec) [#/Vol]Ordered By: Danielle Niño on 04-07-2024 Lymphocytes (Bld) [#/Vol] 1.79 10*3/uL 0.83-4.5 1 [facility] Lymphocytes/100 WBC Auto (Un sp spec)Ordered By: Danielle Niño on 04-07-2024 Lymphocytes/100 WBC (Bld) 27.1 % 19-41 [facility] MCV (mean corpuscular volume ) determinationOrdered By: Danielle Niño on 04-07-2024 MCV (RBC) [Entitic vol] 88.2 fL 80-94 [facility] Mean corpuscular hemoglobin (MCH) determinationOrdered By: Danielle Niño on 04-07-2024 MCH (RBC) [Entitic mass] 28.7 pg 27.0-32.0 [facility] Mean corpuscular hemoglobin concentration (MCHC) determinationOrdered By: Danielle Niño on 04-07-2024 MCHC (RBC) [Mass/Vol] 32.6 g/dL 32-36 [facility] Mean platelet volume determi nationOrdered By: Danielle Niño on 04-07-2024 Platelet mean volume (Bld) [Entitic vol] 10.4 fL 6.2-12.0 [facility] Monocyte percentageOrdered B y: Danielle Niño on 04-07-2024 Monocytes/100 WBC (Bld) 11.0 % High 0-10 [facility] Neutrophil percentageOrdered By: Danielle Niño on 04-07-2024 Neutrophils/100 WBC (Bld) 58.2 % 47-70 [facility] Nucleated red blood cell per centageOrdered By: Danielle Niño on 04-07-2024 Nucleated RBC/100 WBC (Bld) [Ratio] 0 % 0-5 [facility] Platelet countOrdered By: Karen Niño on 04-07-2024 Platelets (Bld) [#/Vol] 228 10*3/uL 150-450 [facility] Potassium measurementOrdered By: Danielle Niño on 04-07-2024 Potassium [Moles/Vol] 4.0 mmol/L 3.5-5.1 [facility] RBC Auto (Bld) [#/Vol]Ordere d By: Carlypenelopeamanda Palaciojacqui on 04-07-2024 RBC (Bld) [#/Vol] 4.84 10*6/uL 4.6-6.2 [facility] Serum anion gap measurementO rdered By: Danielle Niño on 04-07-2024 Anion gap [Moles/Vol] 6 mmol/L 5-15 [facility] Serum or plasma calcium adore urement (mass/volume)Ordered By: Danielle Niño on 04-07-2024 Calcium [Mass/Vol] 8.8 mg/dL 8.5-10.1 [facility] Serum or plasma creatinine m easurement (mass/volume)Ordered By: Danielle Niño on 04-07-2024 Creatinine [Mass/Vol] 1.11 mg/dL 0.70-1.30 [facility] Comment on above: The validity of the calculated GFR & GFRAA in patients over 70 years has not been determined. Clinical correlation is essential. Serum or plasma urea nitroge n measurement (mass/volume)Ordered By: Danielle Niño on 04-07-2024 Urea nitrogen [Mass/Vol] 22 mg/dL High 7-18 [facility] Sodium levelOrdered By: Carly juany Renay on 04-07-2024 Sodium [Moles/Vol] 138 mmol/L 136-145 [facility] White blood cell (WBC) count Ordered By: Danielle Niño on 04-07-2024 WBC (Bld) [#/Vol] 6.6 10*3/uL 4.4-11.0 [facility] Absolute lymphocyte countOrd ered By: Danielle Niño on 03-03-2024 Lymphocytes Auto (Unsp spec) [#/Vol] 2.15 10*3/uL 0.83-4.51 [facility] Absolute neutrophil countOrd ered By: Danielle Niño on 03-03-2024 Neutrophils (Bld) [#/Vol] 4.2 10*3/uL 2.0-7.7 [facility] Automated lymphocyte count a s percentage of total leukocytesOrdered By: Danielle Niño on 03-03-2024 Lymphocytes/100 WBC Auto (Unsp spec) 28.7 % 19-41 [facility] Basophil percentageOrdered B y: Danielle Niño on 03-03-2024 Basophils/100 WBC (Bld) 0.8 % 0-1 [facility] Bilirubin directOrdered By: Danielle Niño on 03-03-2024 Bilirubin.direct [Mass/Vol] 0.15 mg/dL 0.00-0.30 [facility] Bilirubin, totalOrdered By: Danielle Niño on 03-03-2024 Bilirubin [Mass/Vol] 0.50 mg/dL 0.20-1.00 [facility] Comment on above: For patients on eltr ombopag therapy, use of Dimension [place] TBIL is not recommended. Blood urea nitrogen (BUN)/cr eatinine ratioOrdered By: Danielle Niño on 03-03-2024 Urea nitrogen/Creatinine [Mass ratio] 18.5 mg/mg 10-20 [facility] Carbon dioxide measurementOr dered By: Danielle Niño on 03-03-2024 CO2 [Moles/Vol] 30.0 mmol/L 21.0-32.0 [facility] Chloride measurementOrdered By: Danielle Niño on 03-03-2024 Chloride [Moles/Vol] 105 mmol/L 98-107 [facility] Eosinophil percentageOrdered By: Danielle Niño on 03-03-2024 Eosinophils/100 WBC (Bld) 3.2 % 0-5 [facility] Erythrocyte distribution wid th (RBC) [Ratio]Ordered By: Danielle Niño on 03-03-2024 Erythrocyte distribution width (RBC) [Entitic vol] 40.5 fL 35.1-43.9 [facility] Erythrocyte distribution wid th ratioOrdered By: Danielle Niño on 03-03-2024 Erythrocyte distribution width (RBC) [Ratio] 12.3 % 11.6-14.6 [facility] Erythrocyte distribution wid th standard deviationOrdered By: Danielle Niño on 03-03-2024 Erythrocyte distribution width (RBC) [Ratio] 40.5 fl 35.1-43.9 [facility] Estimated glomerular filtrat ion rate (GFR) AmericanOrdered By: Danielle Niño on 03-03-2024 Estimated GFR (MDRD) Amer 84 mL/min >60 [facility] Comment on above: GFR Calc Glomerular filtration rate ( GFR) estimationOrdered By: Danielle Niño on 03-03-2024 Estimated GFR (MDRD) Non-Af Amer 69 mL/min >60 [facility] Comment on above: Non- GFR Calc GFR/1.73 sq M.predicted among non-blacks MDRD (S/P/Bld) [Vol rate/Area] 69 mL/min/{1.73_m2} >60 [facility] Comment on above: Non- GFR Calc Glucose measurementOrdered B y: Danielle Niño on 03-03-2024 Glucose [Mass/Vol] 135 mg/dL High 74-106 [facility] Comment on above: Fasting Glucose resu lt greater than or equal to 126 mg/dL suggests DIABETES MELLITUS per A.D.A. criteria. Hematocrit Auto (Bld) [Volum e fraction]Ordered By: Danielle Niño on 03-03-2024 Hematocrit (Bld) [Volume fraction] 42.8 % 40-54 [facility] Hemoglobin A1c percentageOrd ered By: Danielle Niño on 03-03-2024 HbA1c (Bld) [Mass fraction] 6.4 % High 3.8-5.6 [facility] Comment on above: Normal < 5.7 % Predi abetic 5.7 - 6.4 % Diabetic >or= 6.5 % Please note range changes. Hemoglobin measurementOrdere d By: Danielle Niño on 03-03-2024 Hemoglobin (Bld) [Mass/Vol] 14.2 g/dL 13.0-16.5 [facility] Immature granulocytes/100 WB C Auto (Bld)Ordered By: Danielle Niño on 03-03-2024 Immature granulocytes/100 WBC (Bld) 0.400 % 0.0-0.9 [facility] Comment on above: IG% - Immature Granu locytes (promyelocytes, myelocytes and metamyelocytes) > 1% indicates that a LEFT SHIFT is Present. Laboratory - Chemistry and C hemistry - challengeOrdered By: Danielle Niño on 03-03-2024 AST [Catalytic activity/Vol] 17 U/L 15-37 [facility] Lymphocytes Auto (Unsp spec) [#/Vol]Ordered By: Danielle Niño on 03-03-2024 Lymphocytes (Bld) [#/Vol] 2.15 10*3/uL 0.83-4.5 1 [facility] Lymphocytes/100 WBC Auto (Un sp spec)Ordered By: Danielle Niño on 03-03-2024 Lymphocytes/100 WBC (Bld) 28.7 % 19-41 [facility] MCV (mean corpuscular volume ) determinationOrdered By: Danielle Niño on 03-03-2024 MCV (RBC) [Entitic vol] 89.5 fL 80-94 [facility] Mean corpuscular hemoglobin (MCH) determinationOrdered By: Danielle Niño on 03-03-2024 MCH (RBC) [Entitic mass] 29.7 pg 27.0-32.0 [facility] Mean corpuscular hemoglobin concentration (MCHC) determinationOrdered By: austincodyamanda Niño on 03-03-2024 MCHC (RBC) [Mass/Vol] 33.2 g/dL 32-36 [facility] Mean platelet volume determi nationOrdered By: juan Niño on 03-03-2024 Platelet mean volume (Bld) [Entitic vol] 10.0 fL 6.2-12.0 [facility] Monocyte percentageOrdered B y: Danielle Niño on 03-03-2024 Monocytes/100 WBC (Bld) 10.3 % High 0-10 [facility] Neutrophil percentageOrdered By: Danielle Niño on 03-03-2024 Neutrophils/100 WBC (Bld) 56.6 % 47-70 [facility] Nucleated red blood cell per centageOrdered By: Danielle Niño on 03-03-2024 Nucleated RBC/100 WBC (Bld) [Ratio] 0 % 0-5 [facility] Platelet countOrdered By: Karen Niño on 03-03-2024 Platelets (Bld) [#/Vol] 199 10*3/uL 150-450 [facility] Potassium measurementOrdered By: Danielle Niño on 03-03-2024 Potassium [Moles/Vol] 4.3 mmol/L 3.5-5.1 [facility] RBC Auto (Bld) [#/Vol]Ordere d By: Danielle Niño on 03-03-2024 RBC (Bld) [#/Vol] 4.78 10*6/uL 4.6-6.2 [facility] Serum anion gap measurementO rdered By: Danielle Niño on 03-03-2024 Anion gap [Moles/Vol] 2 mmol/L Low 5-15 [facility] Serum globulin measurementOr dered By: Danielle Niño on 03-03-2024 Globulin (S) [Mass/Vol] 2.9 g/dL 2.2-4.2 [facility] Serum or plasma alanine chilel otransferase (ALT) measurementOrdered By: Danielle Niño on 03-03-2024 ALT [Catalytic activity/Vol] 20 U/L 16-61 [facility] Serum or plasma albumin adore urement (mass/volume)Ordered By: Danielle Niño on 03-03-2024 Albumin [Mass/Vol] 3.2 g/dL 3.2-5.0 [facility] Serum or plasma alkaline aruna sphatase measurementOrdered By: Danielle Niño on 03-03-2024 ALP [Catalytic activity/Vol] 45 U/L 45-117 [facility] Serum or plasma calcium adore urement (mass/volume)Ordered By: Danielle Niño on 03-03-2024 Calcium [Mass/Vol] 8.7 mg/dL 8.5-10.1 [facility] Serum or plasma creatinine m easurement (mass/volume)Ordered By: Danielle Niño on 03-03-2024 Creatinine [Mass/Vol] 1.08 mg/dL 0.70-1.30 [facility] Comment on above: The validity of the calculated GFR & GFRAA in patients over 70 years has not been determined. Clinical correlation is essential. Serum or plasma urea nitroge n measurement (mass/volume)Ordered By: Danielle Niño on 03-03-2024 Urea nitrogen [Mass/Vol] 20 mg/dL High 7-18 [facility] Sodium levelOrdered By: Carly chestervalente Renay on 03-03-2024 Sodium [Moles/Vol] 138 mmol/L 136-145 [facility] Total proteinOrdered By: Pravin mekhiamanda Niño on 03-03-2024 Protein [Mass/Vol] 6.1 g/dL Low 6.4-8.2 [facility] White blood cell (WBC) count Ordered By: Danielle Niño on 03-03-2024 WBC (Bld) [#/Vol] 7.5 10*3/uL 4.4-11.0 [facility] Absolute neutrophil countOrd ered By: Danielle Niño on 02-04-2024 Neutrophils (Bld) [#/Vol] 3.4 10*3/uL 2.0-7.7 [facility] Basophil percentageOrdered B y: Danielle Niño on 02-04-2024 Basophils/100 WBC (Bld) 1.1 % High 0-1 [facility] Blood urea nitrogen (BUN)/cr eatinine ratioOrdered By: Danielle Niño on 02-04-2024 Urea nitrogen/Creatinine [Mass ratio] 19.3 mg/mg 10-20 [facility] Carbon dioxide measurementOr dered By: Danielle Niño on 02-04-2024 CO2 [Moles/Vol] 28.0 mmol/L 21.0-32.0 [facility] Chloride measurementOrdered By: Danielle Niño on 02-04-2024 Chloride [Moles/Vol] 107 mmol/L 98-107 [facility] Eosinophil percentageOrdered By: Danielle Niño on 02-04-2024 Eosinophils/100 WBC (Bld) 4.7 % 0-5 [facility] Erythrocyte distribution wid th (RBC) [Ratio]Ordered By: Danielle Niño on 02-04-2024 Erythrocyte distribution width (RBC) [Entitic vol] 42.7 fL 35.1-43.9 [facility] Erythrocyte distribution wid th ratioOrdered By: Karenjuan Niño on 02-04-2024 Erythrocyte distribution width (RBC) [Ratio] 12.9 % 11.6-14.6 [facility] Estimated glomerular filtrat ion rate (GFR) AmericanOrdered By: Danielle Niño on 02-04-2024 Estimated GFR (MDRD) Amer 83 mL/min >60 [facility] Comment on above: GFR Calc Glomerular filtration rate ( GFR) estimationOrdered By: Danielle Niño on 02-04-2024 Estimated GFR (MDRD) Non-Af Amer 69 mL/min >60 [facility] Comment on above: Non- GFR Calc Glucose measurementOrdered B y: Charlotteamanda Niño on 02-04-2024 Glucose [Mass/Vol] 124 mg/dL High 74-106 [facility] Comment on above: Fasting Glucose resu lt from 100 to 125 mg/dL suggests IMPAIRED HOMEOSTASIS per A.D.A. criteria. Hematocrit Auto (Bld) [Volum e fraction]Ordered By: Danielle Niño on 02-04-2024 Hematocrit (Bld) [Volume fraction] 38.0 % Low 40-54 [facility] Hemoglobin measurementOrdere d By: Karenaustinpenelopeamanda Niño on 02-04-2024 Hemoglobin (Bld) [Mass/Vol] 12.6 g/dL Low 13.0-16.5 [facility] Immature granulocytes/100 WB C Auto (Bld)Ordered By: juan Niño on 02-04-2024 Immature granulocytes/100 WBC (Bld) 0.300 % 0.0-0.9 [facility] Comment on above: IG% - Immature Granu locytes (promyelocytes, myelocytes and metamyelocytes) > 1% indicates that a LEFT SHIFT is Present. Lymphocytes Auto (Unsp spec) [#/Vol]Ordered By: Danielle Niño on 02-04-2024 Lymphocytes (Bld) [#/Vol] 1.85 10*3/uL 0.83-4.5 1 [facility] Lymphocytes/100 WBC Auto (Un sp spec)Ordered By: Danielle Niño on 02-04-2024 Lymphocytes/100 WBC (Bld) 29.2 % 19-41 [facility] MCV (mean corpuscular volume ) determinationOrdered By: Danielle Niño on 02-04-2024 MCV (RBC) [Entitic vol] 89.6 fL 80-94 [facility] Mean corpuscular hemoglobin (MCH) determinationOrdered By: Danielle Niño on 02-04-2024 MCH (RBC) [Entitic mass] 29.7 pg 27.0-32.0 [facility] Mean corpuscular hemoglobin concentration (MCHC) determinationOrdered By: Danielle Niño on 02-04-2024 MCHC (RBC) [Mass/Vol] 33.2 g/dL 32-36 [facility] Mean platelet volume determi nationOrdered By: Danielle Niño on 02-04-2024 Platelet mean volume (Bld) [Entitic vol] 9.8 fL 6.2-12.0 [facility] Monocyte percentageOrdered B y: Danielle Niño on 02-04-2024 Monocytes/100 WBC (Bld) 11.4 % High 0-10 [facility] Neutrophil percentageOrdered By: Danielle Niño on 02-04-2024 Neutrophils/100 WBC (Bld) 53.3 % 47-70 [facility] Nucleated red blood cell per centageOrdered By: Danielle Niño on 02-04-2024 Nucleated RBC/100 WBC (Bld) [Ratio] 0 % 0-5 [facility] Platelet countOrdered By: Ef austinjuany Niño on 02-04-2024 Platelets (Bld) [#/Vol] 180 10*3/uL 150-450 [facility] Potassium measurementOrdered By: Danielle Niño on 02-04-2024 Potassium [Moles/Vol] 4.2 mmol/L 3.5-5.1 [facility] RBC Auto (Bld) [#/Vol]Ordere d By: Danielle Niño on 02-04-2024 RBC (Bld) [#/Vol] 4.24 10*6/uL Low 4.6-6.2 [facility] Serum anion gap measurementO rdered By: Danielle Niño on 02-04-2024 Anion gap [Moles/Vol] 3 mmol/L Low 5-15 [facility] Serum or plasma calcium adore urement (mass/volume)Ordered By: Karenaustinjuany Hakeemjacqui on 02-04-2024 Calcium [Mass/Vol] 8.1 mg/dL Low 8.5-10.1 [facility] Serum or plasma creatinine m easurement (mass/volume)Ordered By: Charlotteamanda Palacioshilohstalin on 02-04-2024 Creatinine [Mass/Vol] 1.09 mg/dL 0.70-1.30 [facility] Comment on above: The validity of the calculated GFR & GFRAA in patients over 70 years has not been determined. Clinical correlation is essential. Serum or plasma urea nitroge n measurement (mass/volume)Ordered By: Karenaustinpenelopeamanda Palacioshilohstalin on 02-04-2024 Urea nitrogen [Mass/Vol] 21 mg/dL High 7-18 [facility] Sodium levelOrdered By: Carly Niño on 02-04-2024 Sodium [Moles/Vol] 138 mmol/L 136-145 [facility] White blood cell (WBC) count Ordered By: Karenaustinpenelopeamanda Palacioshilohstalin on 02-04-2024 WBC (Bld) [#/Vol] 6.3 10*3/uL 4.4-11.0 [facility] Absolute lymphocyte countOrd ered By: Chele Leyva on 04-21-2023 Lymphocytes Auto (Unsp spec) [#/Vol] 1.74 10*3/uL 0.83-4.51 [facility] Automated lymphocyte count a s percentage of total leukocytesOrdered By: Chele Leyva on 04-21-2023 Lymphocytes/100 WBC Auto (Unsp spec) 25.9 % 19-41 [facility] Basophil percentageOrdered B y: Chele Leyva on 04-21-2023 Basophils/100 WBC (Bld) 0.9 % 0-1 [facility] Bilirubin [Mass/Vol] 0.70 mg/dL 0.20-1.00 [facility] Comment on above: For patients on eltr ombopag therapy, use of Dimension [place] TBIL is not recommended. Chloride [Moles/Vol] 106 mmol/L 98-107 [facility] Cholesterol [Mass/Vol] 195 mg/dL <200 [facility] Comment on above: <200 mg/dL Desirable 200-240 mg/dL Borderline >240 mg/dL High Risk Eosinophils/100 WBC (Bld) 3.0 % 0-5 [facility] Glucose [Mass/Vol] 156 mg/dL 74-106 [facility] Comment on above: Fasting Glucose resu lt greater than or equal to 126 mg/dL suggests DIABETES MELLITUS per A.D.A. criteria. Hemoglobin (Bld) [Mass/Vol] 14.5 g/dL 13.0-16.5 [facility] Monocytes/100 WBC (Bld) 8.9 % 0-10 [facility] Neutrophils (Bld) [#/Vol] 4.1 10*3/uL 2.0-7.7 [facility] Neutrophils/100 WBC (Bld) 60.9 % 47-70 [facility] Potassium [Moles/Vol] 3.9 mmol/L 3.5-5.1 [facility] Protein [Mass/Vol] 6.3 g/dL 6.4-8.2 [facility] Sodium [Moles/Vol] 141 mmol/L 136-145 [facility] Triglyceride [Mass/Vol] 112 mg/dL <199 [facility] Comment on above: The drugs N-Acetylcy steine and Metamizole may falsely depress this assay.Serum Triglycerides Reference Interval Normal <150 mg/dL Borderline high 150 - 199 mg/dL High 200 - 499 mg/dL Very High > or = 500 mg/dL WBC (Bld) [#/Vol] 6.7 10*3/uL 4.4-11.0 [facility] Determination of erythrocyte mean corpuscular volume (MCV)Ordered By: Chele Leyva on 04-21-2023 MCV (RBC) [Entitic vol] 87.1 fL 80-94 [facility] Erythrocyte distribution wid th ratioOrdered By: Chele Leyva on 04-21-2023 Erythrocyte distribution width (RBC) [Ratio] 13.8 % 11.6-14.6 [facility] Erythrocyte distribution wid th standard deviationOrdered By: Chele Leyva on 04-21-2023 Erythrocyte distribution width (RBC) [Entitic vol] 44.2 fL 35.1-43.9 [facility] Hematocrit Auto (Bld) [Volum e fraction]Ordered By: Chele Leyva on 04-21-2023 Hematocrit (Bld) [Volume fraction] 45.3 % 40-54 [facility] Immature granulocytes/100 WB C Auto (Bld)Ordered By: Chele Leyva on 04-21-2023 Immature granulocytes/100 WBC (Bld) 0.400 % 0.0-0.9 [facility] Comment on above: IG% - Immature Granu locytes (promyelocytes, myelocytes and metamyelocytes) > 1% indicates that a LEFT SHIFT is Present. Laboratory - Chemistry and C hemistry - challengeOrdered By: Chele Leyva on 04-21-2023 Albumin/Globulin [Mass ratio] 1.1 {ratio} 0.9-2.4 [facility] ALP [Catalytic activity/Vol] 59 U/L 45-117 [facility] ALT [Catalytic activity/Vol] 28 U/L 16-61 [facility] Cholesterol in HDL [Mass/Vol] 42 mg/dL >40 [facility] Comment on above: The drugs N-Acetylcy steine and Metamizole may falsely depress this assay. Reference Range HDL <40 mg/dL Low HDL Cholesterol HDL >or= 60 mg/dL High HDL Cholesterol Cholesterol in LDL [Mass/Vol] 131 mg/dL 0-130 [facility] CO2 [Moles/Vol] 29.0 mmol/L 21.0-32.0 [facility] Globulin (S) [Mass/Vol] 3.0 g/dL 2.2-4.2 [facility] Urea nitrogen/Creatinine [Mass ratio] 25.2 mg/mg 10-20 [facility] Laboratory - Hematology and Cell countsOrdered By: Chele Leyva on 04-21-2023 MCH (RBC) [Entitic mass] 27.9 pg 27.0-32.0 [facility] MCHC (RBC) [Mass/Vol] 32.0 g/dL 32-36 [facility] Nucleated RBC/100 WBC (Bld) [Ratio] 0 % 0-5 [facility] Platelet mean volume (Bld) [Entitic vol] 9.8 fL 6.2-12.0 [facility] Platelets (Bld) [#/Vol] 233 10*3/uL 150-450 [facility] No Panel InformationOrdered By: Chele Leyva on 04-21-2023 Estimated GFR (MDRD) Amer 89 mL/min >60 [facility] Comment on above: GFR Calc Estimated GFR (MDRD) Non-Af Amer 74 mL/min >60 [facility] Comment on above: Non- GFR Calc VLDL Cholesterol 22 mg/dL 5-40 [facility] RBC Auto (Bld) [#/Vol]Ordere d By: Chele Leyva on 04-21-2023 RBC (Bld) [#/Vol] 5.20 10*6/uL 4.6-6.2 [facility] Serum or plasma calcium adore urement (mass/volume)Ordered By: Chele Leyva on 04-21-2023 Calcium [Mass/Vol] 8.7 mg/dL 8.5-10.1 [facility] Serum or plasma creatinine m easurement (mass/volume)Ordered By: Chele Leyva on 04-21-2023 Creatinine [Mass/Vol] 1.03 mg/dL 0.70-1.30 [facility] Comment on above: The validity of the calculated GFR & GFRAA in patients over 70 years has not been determined. Clinical correlation is essential. Serum or plasma urea nitroge n measurement (mass/volume)Ordered By: Chele Leyva on 04-21-2023 Urea nitrogen [Mass/Vol] 26 mg/dL 7-18 [facility] Thin prep Papanicolaou smear with manual screeningOrdered By: Chele Leyva on 04-21-2023 Thin prep Papanicolaou smear with manual screening 3.3 g/dL 3.2-5.0 [facility] Thin prep Papanicolaou smear with manual screening 22 U/L 15-37 [facility] Thin prep Papanicolaou smear with manual screening 6 5-15 [facility] Whole blood hemoglobin A1c/t otal hemoglobin ratio (mass fraction)Ordered By: Chele Leyva on 04-21-2023 HbA1c (Bld) [Mass fraction] 6.9 % 3.8-5.6 [facility] Comment on above: Normal < 5.7 % Predi abetic 5.7 - 6.4 % Diabetic >or= 6.5 % Please note range changes. Basophil percentageOrdered B y: Chele Leyva on 10-14-2022 Cholesterol [Mass/Vol] 208 mg/dL <200 [facility] Comment on above: <200 mg/dL Desirable 200-240 mg/dL Borderline >240 mg/dL High Risk Triglyceride [Mass/Vol] 82 mg/dL <199 [facility] Comment on above: The drugs N-Acetylcy steine and Metamizole may falsely depress this assay.Serum Triglycerides Reference Interval Normal <150 mg/dL Borderline high 150 - 199 mg/dL High 200 - 499 mg/dL Very High > or = 500 mg/dL Serum or plasma cholesterol in HDL measurement (mass/volume)Ordered By: Chele Leyva on 10-14-2022 Cholesterol in HDL [Mass/Vol] 46 mg/dL >40 [facility] Comment on above: The drugs N-Acetylcy steine and Metamizole may falsely depress this assay. Reference Range HDL <40 mg/dL Low HDL Cholesterol HDL >or= 60 mg/dL High HDL Cholesterol Serum or plasma cholesterol in VLDL measurement (mass/volume)Ordered By: Chele Leyva on 10-14-2022 Cholesterol in VLDL [Mass/Vol] 16 mg/dL 5-40 [facility] Serum or plasma low density lipoprotein (LDL) cholesterol measurement (mass/volume)Ordered By: Chele Leyva on 10-14-2022 Cholesterol in LDL [Mass/Vol] 146 mg/dL 0-130 [facility] Whole blood hemoglobin A1c/t otal hemoglobin ratio (mass fraction)Ordered By: Chele Leyva on 10-14-2022 HbA1c (Bld) [Mass fraction] 6.9 % 3.8-5.6 [facility] Comment on above: Normal < 5.7 % Predi abetic 5.7 - 6.4 % Diabetic >or= 6.5 % Please note range changes. Laboratory - Chemistry and C hemistry - challengeOrdered By: Chele Leyva on 07-22-2022 Cobalamin (Vitamin B12) [Mass/Vol] 614 pg/mL 211-911 [facility] No Panel InformationOrdered By: Chele Leyva on 07-22-2022 Thyroid Stimulating Hormone (TSH) 1.35 uIU/mL 0.358-3.74 [facility] Absolute lymphocyte countOrd ered By: Dr. Leyva on 04-03-2022 Lymphocytes Auto (Unsp spec) [#/Vol] 1.79 10*3/uL 0.83-4.51 [facility] Basophil percentageOrdered B y: Dr. Leyva on 04-03-2022 Basophils/100 WBC (Bld) 0.7 % 0-1 [facility] Bilirubin [Mass/Vol] 0.80 mg/dL 0.20-1.00 [facility] Comment on above: For patients on eltr ombopag therapy, use of Dimension [place] TBIL is not recommended. Chloride [Moles/Vol] 104 mmol/L 98-107 [facility] Cholesterol [Mass/Vol] 204 mg/dL <200 [facility] Comment on above: <200 mg/dL Desirable 200-240 mg/dL Borderline >240 mg/dL High Risk Eosinophils/100 WBC (Bld) 1.3 % 0-5 [facility] Glucose [Mass/Vol] 144 mg/dL 74-106 [facility] Comment on above: Fasting Glucose resu lt greater than or equal to 126 mg/dL suggests DIABETES MELLITUS per A.D.A. criteria. Neutrophils (Bld) [#/Vol] 4.3 10*3/uL 2.0-7.7 [facility] Neutrophils/100 WBC (Bld) 63.8 % 47-70 [facility] Potassium [Moles/Vol] 4.1 mmol/L 3.5-5.1 [facility] Protein [Mass/Vol] 6.9 g/dL 6.4-8.2 [facility] Sodium [Moles/Vol] 139 mmol/L 136-145 [facility] Triglyceride [Mass/Vol] 119 mg/dL <199 [facility] Comment on above: The drugs N-Acetylcy steine and Metamizole may falsely depress this assay.Serum Triglycerides Reference Interval Normal <150 mg/dL Borderline high 150 - 199 mg/dL High 200 - 499 mg/dL Very High > or = 500 mg/dL WBC (Bld) [#/Vol] 6.8 10*3/uL 4.4-11.0 [facility] Blood erythrocytes count (nu mber/volume)Ordered By: Dr. Leyva on 04-03-2022 RBC (Bld) [#/Vol] 5.49 10*6/uL 4.6-6.2 [facility] Blood hemoglobin measurement (mass/volume)Ordered By: Dr. Leyva on 04-03-2022 Hemoglobin (Bld) [Mass/Vol] 15.6 g/dL 13.0-16.5 [facility] Blood lymphocytes/100 leukoc ytesOrdered By: Dr. Leyva on 04-03-2022 Lymphocytes/100 WBC (Bld) 26.3 % 19-41 [facility] Blood monocytes/100 leukocyt esOrdered By: Dr. Leyva on 04-03-2022 Monocytes/100 WBC (Bld) 7.8 % 0-10 [facility] Blood platelet mean volumeOr dered By: Dr. Leyva on 04-03-2022 Platelet mean volume (Bld) [Entitic vol] 10.0 fL 6.2-12.0 [facility] Determination of erythrocyte mean corpuscular volume (MCV)Ordered By: Dr. Leyva on 04-03-2022 MCV (RBC) [Entitic vol] 86.2 fL 80-94 [facility] Hematocrit Auto (Bld) [Volum e fraction]Ordered By: Dr. Leyva on 04-03-2022 Hematocrit (Bld) [Volume fraction] 47.3 % 40-54 [facility] Laboratory - Chemistry and C hemistry - challengeOrdered By: Dr. Leyva on 04-03-2022 ALP [Catalytic activity/Vol] 58 U/L 45-117 [facility] ALT [Catalytic activity/Vol] 42 U/L 16-61 [facility] CO2 [Moles/Vol] 27.0 mmol/L 21.0-32.0 [facility] Globulin (S) [Mass/Vol] 3.3 g/dL 2.2-4.2 [facility] Urea nitrogen/Creatinine [Mass ratio] 21.5 mg/mg 10-20 [facility] Laboratory - Hematology and Cell countsOrdered By: Dr. Leyva on 04-03-2022 Erythrocyte distribution width (RBC) [Entitic vol] 42.7 fL 35.1-43.9 [facility] Erythrocyte distribution width (RBC) [Ratio] 13.6 % 11.6-14.6 [facility] Immature granulocytes/100 WBC (Bld) 0.100 % 0.0-0.9 [facility] Comment on above: IG% - Immature Granu locytes (promyelocytes, myelocytes and metamyelocytes) > 1% indicates that a LEFT SHIFT is Present. MCH (RBC) [Entitic mass] 28.4 pg 27.0-32.0 [facility] Nucleated RBC/100 WBC (Bld) [Ratio] 0 % 0-5 [facility] MCHC Auto (RBC) [Mass/Vol]Or dered By: Dr. Leyva on 04-03-2022 MCHC (RBC) [Mass/Vol] 33.0 g/dL 32-36 [facility] No Panel InformationOrdered By: Dr. Leyva on 04-03-2022 Estimated GFR (MDRD) Amer 85 mL/min >60 [facility] Comment on above: GFR Calc Estimated GFR (MDRD) Non-Af Amer 71 mL/min >60 [facility] Comment on above: Non- GFR Calc Prostate Specific Antigen Screen 2.31 ng/mL 0.00-4.00 [facility] Comment on above: This test was perfor med using the TPSA assay method [facility]. Values obtained with differentassay methods cannot be used interchangably.When changing PSA assays in the course of monitoring apatient, additional sequential testing should be carriedout to confirm baseline values. Urine Microalbumin/Creatinine Ratio 37.9 mg/g CRE <30 [facility] Platelets bldOrdered By: Dr. Leyva on 04-03-2022 Platelets (Bld) [#/Vol] 226 10*3/uL 150-450 [facility] Serum or plasma albumin adore urement (mass/volume)Ordered By: Dr. Leyva on 04-03-2022 Albumin [Mass/Vol] 3.6 g/dL 3.2-5.0 [facility] Serum or plasma albumin/glob ulin mass ratioOrdered By: Dr. Leyva on 04-03-2022 Albumin/Globulin [Mass ratio] 1.1 {ratio} 0.9-2.4 [facility] Serum or plasma calcium adore urement (mass/volume)Ordered By: Dr. Leyva on 04-03-2022 Calcium [Mass/Vol] 9.0 mg/dL 8.5-10.1 [facility] Serum or plasma cholesterol in HDL measurement (mass/volume)Ordered By: Dr. Leyva on 04-03-2022 Cholesterol in HDL [Mass/Vol] 41 mg/dL >40 [facility] Comment on above: The drugs N-Acetylcy steine and Metamizole may falsely depress this assay. Reference Range HDL <40 mg/dL Low HDL Cholesterol HDL >or= 60 mg/dL High HDL Cholesterol Serum or plasma cholesterol in VLDL measurement (mass/volume)Ordered By: Dr. Leyva on 04-03-2022 Cholesterol in VLDL [Mass/Vol] 24 mg/dL 5-40 [facility] Serum or plasma creatinine m easurement (mass/volume)Ordered By: Dr. Leyva on 04-03-2022 Creatinine [Mass/Vol] 1.07 mg/dL 0.70-1.30 [facility] Comment on above: The validity of the calculated GFR & GFRAA in patients over 70 years has not been determined. Clinical correlation is essential. Serum or plasma low density lipoprotein (LDL) cholesterol measurement (mass/volume)Ordered By: Dr. Leyva on 04-03-2022 Cholesterol in LDL [Mass/Vol] 139 mg/dL 0-130 [facility] Serum or plasma urea nitroge n measurement (mass/volume)Ordered By: Dr. Leyva on 04-03-2022 Urea nitrogen [Mass/Vol] 23 mg/dL 7-18 [facility] Thin prep Papanicolaou smear with manual screeningOrdered By: Dr. Leyva on 04-03-2022 Thin prep Papanicolaou smear with manual screening 30 U/L 15-37 [facility] Thin prep Papanicolaou smear with manual screening 8 5-15 [facility] Thin prep Papanicolaou smear with manual screening 67.4 mg/L NO RANGE EST. [facility] Urine creatinine measurement (mass/volume)Ordered By: Dr. Leyva on 04-03-2022 Creatinine (U) [Mass/Vol] 178.00 mg/dL NO RANGE EST. [facility] Whole blood hemoglobin A1c/t otal hemoglobin ratio (mass fraction)Ordered By: Dr. Leyva on 04-03-2022 HbA1c (Bld) [Mass fraction] 7.3 % 3.8-5.6 [facility] Comment on above: Normal < 5.7 % Predi abetic 5.7 - 6.4 % Diabetic >or= 6.5 % Please note range changes. Absolute lymphocyte counton 08-02-2021 Lymphocytes Auto (Unsp spec) [#/Vol] 1.44 10*3/uL 0.83-4.51 [facility] Work Phone: Basophil percentageon 2021 Basophils/100 WBC (Bld) 0.9 % 0-1 [facility] Work Phone: Bilirubin [Mass/Vol] 0.90 mg/dL 0.20-1.00 [facility] Work Phone: Comment on above: For patients on eltr ombopag therapy, use of Dimension [place] TBIL is not recommended. Chloride [Moles/Vol] 106 mmol/L 98-107 [facility] Work Phone: Cholesterol [Mass/Vol] 214 mg/dL <200 [facility] Work Phone: Comment on above: <200 mg/dL Desirable 200-240 mg/dL Borderline >240 mg/dL High Risk Eosinophils/100 WBC (Bld) 0.8 % 0-5 [facility] Work Phone: Glucose [Mass/Vol] 126 mg/dL 74-106 [facility] Work Phone: Comment on above: Fasting Glucose resu lt greater than or equal to 126 mg/dL suggests DIABETES MELLITUS per A.D.A. criteria. Neutrophils (Bld) [#/Vol] 4.3 10*3/uL 2.0-7.7 [facility] Work Phone: Neutrophils/100 WBC (Bld) 66.4 % 47-70 [facility] Work Phone: Potassium [Moles/Vol] 3.8 mmol/L 3.5-5.1 [facility] Work Phone: Protein [Mass/Vol] 7.0 g/dL 6.4-8.2 [facility] Work Phone: Sodium [Moles/Vol] 139 mmol/L 136-145 [facility] Work Phone: Triglyceride [Mass/Vol] 86 mg/dL <199 [facility] Work Phone: Comment on above: The drugs N-Acetylcy steine and Metamizole may falsely depress this assay.Serum Triglycerides Reference Interval Normal <150 mg/dL Borderline high 150 - 199 mg/dL High 200 - 499 mg/dL Very High > or = 500 mg/dL WBC (Bld) [#/Vol] 6.5 10*3/uL 4.4-11.0 [facility] Work Phone: Blood erythrocytes count (nu mber/volume)on 08-02-2021 RBC (Bld) [#/Vol] 5.46 10*6/uL 4.6-6.2 [facility] Work Phone: Blood hemoglobin measurement (mass/volume)on 08-02-2021 Hemoglobin (Bld) [Mass/Vol] 15.6 g/dL 13.0-16.5 [facility] Work Phone: Blood lymphocytes/100 leukoc yteson 08-02-2021 Lymphocytes/100 WBC (Bld) 22.2 % 19-41 [facility] Work Phone: Blood monocytes/100 leukocyt eson 08-02-2021 Monocytes/100 WBC (Bld) 9.4 % 0-10 [facility] Work Phone: Blood platelet mean volumeon 08-02-2021 Platelet mean volume (Bld) [Entitic vol] 10.0 fL 6.2-12.0 [facility] Work Phone: Determination of erythrocyte mean corpuscular volume (MCV)on 08-02-2021 MCV (RBC) [Entitic vol] 86.4 fL 80-94 [facility] Work Phone: Hematocrit Auto (Bld) [Volum e fraction]on 08-02-2021 Hematocrit (Bld) [Volume fraction] 47.2 % 40-54 [facility] Work Phone: Laboratory - Chemistry and C hemistry - challengeon 08-02-2021 ALP [Catalytic activity/Vol] 49 U/L 45-117 [facility] Work Phone: ALT [Catalytic activity/Vol] 24 U/L 16-61 [facility] Work Phone: CO2 [Moles/Vol] 26.0 mmol/L 21.0-32.0 [facility] Work Phone: Globulin (S) [Mass/Vol] 3.3 g/dL 2.2-4.2 [facility] Work Phone: Urea nitrogen/Creatinine [Mass ratio] 21.6 mg/mg 10-20 [facility] Work Phone: Laboratory - Hematology and Cell countson 08-02-2021 Erythrocyte distribution width (RBC) [Entitic vol] 40.9 fL 35.1-43.9 [facility] Work Phone: Erythrocyte distribution width (RBC) [Ratio] 13.2 % 11.6-14.6 [facility] Work Phone: Immature granulocytes/100 WBC (Bld) 0.300 % 0.0-0.9 [facility] Work Phone: Comment on above: IG% - Immature Granu locytes (promyelocytes, myelocytes and metamyelocytes) > 1% indicates that a LEFT SHIFT is Present. MCH (RBC) [Entitic mass] 28.6 pg 27.0-32.0 [facility] Work Phone: Nucleated RBC/100 WBC (Bld) [Ratio] 0 % 0-5 [facility] Work Phone: MCHC Auto (RBC) [Mass/Vol]on 08-02-2021 MCHC (RBC) [Mass/Vol] 33.1 g/dL 32-36 [facility] Work Phone: No Panel Informationon 08-02 Estimated GFR (MDRD) Amer 90 mL/min >60 [facility] Work Phone: Comment on above: GFR Calc Estimated GFR (MDRD) Non-Af Amer 75 mL/min >60 [facility] Work Phone: Comment on above: Non- GFR Calc Urine Microalbumin/Creatinine Ratio 18.6 mg/g CRE <30 [facility] Work Phone: Platelets bldon 08-02-2021 Platelets (Bld) [#/Vol] 233 10*3/uL 150-450 [facility] Work Phone: Serum or plasma albumin adore urement (mass/volume)on 08-02-2021 Albumin [Mass/Vol] 3.7 g/dL 3.2-5.0 [facility] Work Phone: Serum or plasma albumin/glob ulin mass ratioon 08-02-2021 Albumin/Globulin [Mass ratio] 1.1 {ratio} 0.9-2.4 [facility] Work Phone: Serum or plasma calcium adore urement (mass/volume)on 08-02-2021 Calcium [Mass/Vol] 8.9 mg/dL 8.5-10.1 [facility] Work Phone: Serum or plasma cholesterol in HDL measurement (mass/volume)on 08-02-2021 Cholesterol in HDL [Mass/Vol] 40 mg/dL >40 [facility] Work Phone: Comment on above: The drugs N-Acetylcy steine and Metamizole may falsely depress this assay. Reference Range HDL <40 mg/dL Low HDL Cholesterol HDL >or= 60 mg/dL High HDL Cholesterol Serum or plasma cholesterol in VLDL measurement (mass/volume)on 08-02-2021 Cholesterol in VLDL [Mass/Vol] 17 mg/dL 5-40 [facility] Work Phone: Serum or plasma creatinine m easurement (mass/volume)on 08-02-2021 Creatinine [Mass/Vol] 1.02 mg/dL 0.70-1.30 [facility] Work Phone: Comment on above: The validity of the calculated GFR & GFRAA in patients over 70 years has not been determined. Clinical correlation is essential. Serum or plasma low density lipoprotein (LDL) cholesterol measurement (mass/volume)on 08-02-2021 Cholesterol in LDL [Mass/Vol] 157 mg/dL 0-130 [facility] Work Phone: Serum or plasma urea nitroge n measurement (mass/volume)on 08-02-2021 Urea nitrogen [Mass/Vol] 22 mg/dL 7-18 [facility] Work Phone: Thin prep Papanicolaou smear with manual screeningon 08-02-2021 Thin prep Papanicolaou smear with manual screening 19 U/L 15-37 [facility] Work Phone: Thin prep Papanicolaou smear with manual screening 7 5-15 [facility] Work Phone: Thin prep Papanicolaou smear with manual screening 24.0 mg/L NO RANGE EST. [facility] Work Phone: Urine creatinine measurement (mass/volume)on 08-02-2021 Creatinine (U) [Mass/Vol] 129.00 mg/dL NO RANGE EST. [facility] Work Phone: Whole blood hemoglobin A1c/t otal hemoglobin ratio (mass fraction)on 08-02-2021 HbA1c (Bld) [Mass fraction] 7.0 % 3.8-5.6 [facility] Work Phone: Comment on above: Normal < 5.7 % Predi abetic 5.7 - 6.4 % Diabetic >or= 6.5 % Please note range changes. Encounters Encounter Date Encounter Type Care Provider Facility Start: 12-12-2024 End: 12-12-2024 ambulatory [facility] Facility:[facility] Start: 12-01-2024 ambulatory [facility] Facility: [facility] Start: 11-22-2024 End: 11-22-2024 ambulatory [facility] Facility:[facility] Start: 11-03-2024 ambulatory Danielle BURTON Fa cility:[facility] Start: 11-03-2024 Registered Referred Danielle Nelson Start: 10-28-2024 End: 10-28-[address] Chele Leyva DO Work Phone: [facility] Start: 10-28-2024 End: 10-28-2024 Patient encounter procedure Lili BRAXTON -[facility] Work Phone: Start: 10-06-2024 ambulatory Danielle BURTON Fa cility:[facility] Start: 10-06-2024 Registered Referred Danielle Nelson Start: 09-20-2024 End: 09-20-[address] Chele Leyva DO Work Phone: -[facility] Start: 09-20-2024 End: 09-20-[address] [facility]: Start: 09-01-2024 End: 09-01-[address] [facility] Work Phone: Start: 09-01-2024 End: 09-01-[address] Chele Leyva DO Work Phone: [facility] Start: 09-01-2024 Registered Referred Danielle Nelson Start: 08-04-2024 ambulatory Danielle BURTON Fa cility:[facility] Start: 08-04-2024 Registered Referred Danielle Nelson Start: 07-19-2024 End: 07-19-[address] Chele Leyva DO Work Phone: -[facility] Start: 07-19-2024 End: 07-19-[address] Danielle Niño MD -[facility] Work Phone: Start: 06-30-2024 End: 06-30-[address] Chele Leyva DO Work Phone: [facility] Work Phone: Start: 06-30-2024 End: 06-30-2024 Departed Referred Danielle Nelson Start: 06-30-2024 End: 06-30-2024 ambulatory Danielle BURTON Facility:[facility] Start: 06-28-2024 End: 06-28-[address] Chele Leyva DO Work Phone: -[facility] Start: 06-28-2024 End: 06-28-2024 Patient encounter procedure Lili Jiménezsean BRAXTON -[facility] Work Phone: Start: 06-02-2024 End: 06-02-[address] Chele Leyva DO Work Phone: [facility] Work Phone: Start: 06-02-2024 End: 06-02-2024 Departed Referred Danielle Nelson Start: 06-02-2024 End: 06-02-2024 ambulatory Efjuan BURTON Facility:[facility] Start: 05-17-2024 End: 05-17-[address] Chele Leyva DO Work Phone: [facility] Work Phone: Start: 05-17-2024 End: 05-17-[address] [facility] Work Phone: Start: 05-05-2024 End: 05-05-[address] Chele Leyva DO Work Phone: [facility] Work Phone: Start: 05-05-2024 End: 05-05-2024 Departed Referred Danielle Barraza/[facility] Start: 05-05-2024 End: 05-05-2024 ambulatory [facility] Facility:[facility] Start: 04-18-2024 End: 04-18-2024 ambulatory [facility] Facility:[facility] Start: 04-18-2024 End: 04-18-2024 Patient encounter procedure [facility] Work Phone: Start: 04-07-2024 ambulatory [facility] Facility: [facility] Start: 04-07-2024 Registered Referred Danielle Barraza/Yazmin Start: 03-29-2024 End: 03-29-2024 ambulatory [facility] Facility:[facility] Start: 03-29-2024 End: 03-29-[address] [facility] Work Phone: Start: 03-03-2024 End: 03-03-2024 Departed Referred Danielle Barraza/Yazmin Start: 03-03-2024 End: 03-03-2024 ambulatory [facility] Facility:[facility] Start: 02-22-2024 End: 02-22-2024 ambulatory [facility] Facility:[facility] Start: 02-22-2024 End: 02-22-2024 Patient encounter procedure [facility] Work Phone: Start: 02-04-2024 ambulatory [facility] Facility: [facility] Start: 02-04-2024 Registered Referred Danielle Niño MD -[facility] Start: 02-02-2024 End: 02-02-2024 ambulatory [facility] Facility:[facility] Start: 02-02-2024 End: 02-02-[address] Danielle Niño MD -[facility] Work Phone: Start: 01-07-2024 End: 01-07-2024 ambulatory Danielle BURTON Facility:[facility] Start: 12-30-2023 End: 12-30-2023 ambulatory [facility] Facility:[facility] Start: 05-19-2023 End: 05-19-2023 ambulatory [facility] Work Phone: Start: 05-19-2023 End: 05-19-2023 Patient encounter procedure [facility]-Cat Scan, [facility] Work Phone: Start: 04-21-2023 End: 04-21-2023 ambulatory [facility] Work Phone: Start: 04-21-2023 End: 04-21-2023 Patient encounter procedure [facility] Start: 03-17-2023 End: 03-17-2023 ambulatory [facility] Work Phone: Start: 03-17-2023 End: 03-17-2023 Patient encounter procedure [facility], [place] Work Phone: Start: 10-14-2022 End: 10-14-2022 ambulatory [facility] Work Phone: Start: 10-14-2022 End: 10-14-2022 Patient encounter procedure [facility] Start: 07-22-2022 End: 07-22-2022 Patient encounter procedure [facility], [facility] Start: 04-03-2022 End: 04-03-2022 ambulatory [facility] Work Phone: Start: 04-03-2022 End: 04-03-2022 [facility] Start: 08-02-2021 End: 08-02-2021 Patient encounter procedure [facility] Procedures Date Procedure Procedure Detail Performing Clinician [...] Payer Category Payer Private Health Insurance [id number] 2023 Self-pay [id number] 2014 Medicare [id number] 2006 Medicare [id number] Private Health Insurance [facility] [id number] [facility] [id number] Unknown [id number] 62 Unknown [id number] 2.16.840.1.660230.3.579.2.4 62 Unknown [id number] 2.16.840.1.039340.3.579.2.4 62 Unknown [id number] 2.16.840.1.505129.3.579.2.4 62 Unknown [id number] 2.16.840.1.731505.3.579.2.4 62 Unknown [id number] 2.16.840.1.221312.3.579.2.4 62 Unknown [id number] 2.16.840.1.539177.3.579.2.4 62 Unknown [id number] 2.16.840.1.357104.3.579.2.4 62 Unknown [id number] 2.16.840.1.114385.3.579.2.4 62 Unknown [id number] 2.16.840.1.865741.3.579.2.4 62 Unknown [id number] 2.16.840.1.304379.3.579.2.4 62 Unknown [id number] 2.16.840.1.302829.3.579.2.4 62 Unknown [id number] 2.16.840.1.980533.3.579.2.4 62 Unknown [id number] 2.16.840.1.325983.3.579.2.4 62 Unknown [id number] 2.16.840.1.352157.3.579.2.4 62 Unknown [id number] 2.16.840.1.037985.3.579.2.4 62 Unknown [id number] 2.16.840.1.240408.3.579.2.4 62 Unknown [id number] 2.16.840.1.451693.3.579.2.4 62 Unknown [id number] 2.16.840.1.009564.3.579.2.4 62 Unknown [id number] 2.16.840.1.350927.3.579.2.4 62 Unknown [id number] 2.16.840.1.773111.3.579.2.4 62 Unknown [id number] 2.16.840.1.300065.3.579.2.4 62 Unknown [id number] 2.16.840.1.159984.3.579.2.4 62 Unknown [id number] 2.16.840.1.664961.3.579.2.4 62 Unknown [id number] 2.16.840.1.314950.3.579.2.4 62 Social History Date Type Detail Facility Start: 11-30-2015 End: 11-30-2015 Tobacco smoking status NHIS Unknown if ever smoked [facility] Start: 1940 Sex Assigned At Male [facility] Start: 05-19-2024 End: 11-15-2024 Tobacco smoking status NHIS Never smoked tobacco (finding) [facility] Start: 05-24-2024 End: 06-03-2024 Sex Male (finding) [facility] Sex Male [facility] Evaluation note Note Date & Type Note Facility Evaluation note No assessment information availa ble [facility] Work Phone: Reason for referral (narrative) Note Date & Type Note Facility Reason for referral (narrative) No reason for referral information available [facility] Work Phone: Advance Directives No Advanced Directives Records Found Advance Directive Response Recorded Date/ Time Advance Directives Yes December 06, 2015 7:23am Living Will Yes December 05 7:23am Power of Assistant Store Manager Trainee Yes December 06, 2015 7:23am Advance Directive Response Recorded Date/ Time Advance Directives Yes December 06, 2015 6:23am Living Will Yes December 05 6:23am Power of Assistant Store Manager Trainee Yes December 06, 2015 6:23am Advance Directive Response Recorded Date/ Time Advance Directives Yes May 19 8:00am Advance Directive Response Recorded Date/ Time Advance Directives Yes September 27, 2024 10:16am Advance Directive Response Recorded Date/ Time Advance Directives Yes October 12:11pm Chief Complaint and Reason for Visit Chief Complaint LEG PAIN Chief Complaint LEG PAIN MEMORY IMPAIRMENT, DELUSIONS, ABN GAIT Chief Complaint Admit Date MONTHLY EXAM February 02, 2024 6:35pm LABWORK February 04, 2024 5:00am NEW CONCERN February 22, 2024 3: 09pm [facility] WORK March 03, 2024 5:00am MONTHLY EXAM - March 29, 2024 12:41pm LABWORK April 07, 2024 5:00am MONTHLY EXAM April 18, 2024 4:50 pm [facility] WORK May 05, 2024 5 :00am Chief Complaint Admit Date LABWORK February 04, 2024 5:00am NEW CONCERN February 22, 2024 3: 09pm [facility] WORK March 03, 2024 5:00am MONTHLY EXAM - MD March 29, 2024 12:41pm LABWORK April 07, 2024 5:00am MONTHLY EXAM April 18, 2024 4:50 pm [facility] LAB WORK May 05, 2024 5 :00am [facility] LAB WORK June 02, 2024 4 :00am Chief Complaint Admit Date [facility] LAB WORK March 03, 2024 5:00am MONTHLY EXAM - MD March 29, 2024 12:41pm LABWORK April 07, 2024 5:00am MONTHLY EXAM April 18, 2024 4:50 pm [facility] WORK May 05, 2024 5 :00am MONTHLY EXAM May 17, 2024 3:18 pm [facility] LAB WORK June 02, 2024 4 :00am Chief Complaint Admit Date MONTHLY EXAM - MD March 29, 2024 12:41pm LABWORK April 07, 2024 5:00am MONTHLY EXAM April 18, 2024 4:50 pm [facility] WORK May 05, 2024 5 :00am MONTHLY EXAM May 17, 2024 3:18 pm [facility] LAB WORK June 02, 2024 4 :00am LABWORK June 30, 2024 5:00a m Chief Complaint Admit Date [facility] LAB WORK May 05, 2024 5 :00am MONTHLY EXAM May 17, 2024 3:18 pm [facility] WORK June 02, 2024 4 :00am LABWORK June 30, 2024 5:00a m Monthly Visit July 19, 2024 6:52p m Chief Complaint Admit Date MONTHLY EXAM May 17, 2024 3:18 pm [facility] WORK June 02, 2024 4 :00am MONTHLY EXAM June 28, 2024 4:24p m LABWORK June 30, 2024 5:00a m Monthly Visit July 19, 2024 6:52p m [facility] LAB WORK August 04, 2024 5: 00am Chief Complaint Admit Date [facility] LAB WORK June 02, 2024 4 :00am MONTHLY EXAM June 28, 2024 4:24p m LABWORK June 30, 2024 5:00a m Monthly Visit July 19, 2024 6:52p m [facility] LAB WORK August 04, 2024 5: 00am [facility] WORK September 01, 2024 5: 00am Monthly Exam September 01, 2024 5:05 pm Chief Complaint Admit Date MONTHLY EXAM June 28, 2024 4:24p m LABWORK June 30, 2024 5:00a m Monthly Visit July 19, 2024 6:52p m [facility] WORK August 04, 2024 5: 00am [facility] LAB WORK September 01, 2024 5: 00am Monthly Exam September 01, 2024 5:05 pm MONTHLY EXAM September 20, 2024 1:3 3pm Chief Complaint Admit Date Monthly Visit July 19, 2024 6:52p m [facility] LAB WORK August 04, 2024 5: 00am [facility] LAB WORK September 01, 2024 5: 00am Monthly Exam September 01, 2024 5:05 pm MONTHLY EXAM September 20, 2024 1:3 3pm LABWORK October 06, 2024 5: 00am MONTHLY EXAM October 28, 2024 3:05pm [facility] LAB WORK November 03 4:00am Summary Purpose Family History No Family History [...] Member Role Status Dates Dr. Chele Leyva , DO Family Provider Active Dr. Chele Leyva , DO Primary Care Provider Active Team Status: Inactive Member Role Status Dates Dr. Chele Leyva , DO Primary Care Provider, Attendin g Provider Active Team Status: Inactive Member Role Status Dates Dr. Chele Leyva , DO Primary Care Prov ider, Attending Provider, [...] 2024 End: February 22, 2024 Lili Haynes NP, RECRUITMENT COORDINATOR-C Attending Provider Active Start: February 22, 2024 [...] End: April 18, 2024 Lili Haynes NP RECRUITMENT COORDINATOR-C Attending Provider Active Start: April 18, 2024 [...] End: June 28, 2024 Lili Haynes NP, RECRUITMENT COORDINATOR-C Attending Provider Active Start: June 28, 2024 [...] 2024 End: June 28, 2024 Lili Haynes RECRUITMENT COORDINATOR RECRUITMENT COORDINATOR-C Attending Provider Active Start: June 28, 2024 [...] Active Member Role/Relationship Status Dates Dr. Chele Levya DO Primary Care Provider Active Start: September [...] 2024 End: September 01, 2024 Lili Haynes RECRUITMENT COORDINATOR RECRUITMENT COORDINATOR-C Attending Provider Active Start: September 01, 2024 End: September 01, 2024 Team Status: Inactive Member Role/Relationship Status Dates Dr. Chele Leyva DO Primary Care Provider Active Start: June 28, 2024 End: June 28, 2024 Lili Haynes RECRUITMENT COORDINATOR, RECRUITMENT COORDINATOR-C Attending Provider Active Start: June 28, 2024 End: June 28, 2024 Team Status: Inactive Member Role/Relationship Status Dates Dr. Chele Leyva DO Primary Care Provider Active Start: June 30, 2024 End: June 30, 2024 Danielle BURTON MD Attending Provider Active Start: June 30, 2024 End: June 30, 2024 Team Status: Inactive Member Role/Relationship Status Dates Dr. Chele Leyav DO Primary Care Provider Active Start: July [...] 2024 End: September 01, 2024 Lili Haynes RECRUITMENT COORDINATOR, RECRUITMENT COORDINATOR-C Attending Provider Active Start: September 01, 2024 End: September 01, 2024 Team Status: Inactive Member Role/Relationship Status Dates Dr. Chele Leyva DO Primary Care Provider Active Start: September 20, 2024 End: September 20, 2024 Dr. Danielle Niño MD Attending Provider Active Start: September 20, 2024 End: September 20, 2024 Team Status: Active Member Role/Relationship Status Dates Dr. Chele Leyva DO Primary care physician Active Team Status: Inactive Member Role/Relationship Status Dates Dr. Chele Leyva DO Primary care physician Active Start: July 19, 2024 End: July 19, 2024 Dr. Danielle Niño MD Attending physician Active Start: July 19, 2024 End: July 19, 2024 Team Status: Active Member Role/Relationship Status Dates Dr. Chele Leyva DO Primary care physician Active Start: August 04, 2024 Danielle BURTON MD Attending physician Active Start: August 04, 2024 Team Status: Active Member Role/Relationship Status Dates Dr. Chele Leyva DO Primary care physician Active Start: September 01, 2024 Danielle BURTON MD Attending physician Active Start: September 01, 2024 Team Status: Inactive Member Role/Relationship Status Dates Dr. Chele Leyva DO Primary care physician Active Start: September 01, 2024 End: September 01, 2024 PARRISH Costa NPC Attending physician Active Start: September 01, 2024 End: September 01, 2024 Team Status: Inactive Member Role/Relationship Status Dates Dr. Chele Leyva DO Primary care physician Active Start: September 20, 2024 End: September 20, 2024 Dr. Danielle Niño MD Attending physician Active Start: September 20, 2024 End: September 20, 2024 Team Status: Active Member Role/Relationship Status Dates Dr. Chele Leyva DO Primary care physician Active Start: October 06, 2024 Danielle BURTON MD Attending physician Active Start: October 06, 2024 Team Status: Inactive Member Role/Relationship Status Dates Dr. Chele Leyva DO Primary care physician Active Start: October 28, 2024 End: October 28, 2024 Lili Haynes NP, NP-C Attending physician Active Start: October 28, 2024 End: October 28, 2024 Team Status: Active Member Role/Relationship Status Dates Dr. Chele Leyva DO Primary care physician Active Start: November 03, 2024 Danielle BURTON MD Attending physician Active Start: November 03, 2024 Danielle BURTON MD Referring Provider Active Start: November 03, 2024 (unrecognized sect ion and content) No Status Records Found INFORMATION SOURCE (unrecogn ized section and content) DATE CREATED AUTHOR 12/28/2024 [facility] FOR RECORDS PERTAINING TO PATIENTS [...] BE BASED ON THE PRIMARY CLINICAL RECORDS. [email or web address] [facility]. provides no warranty or guarantee of the accuracy or completeness of information in this document.
[2025-02-02 08:58] LABS: Hematocrit 41.9 % (40-54); Hemoglobin 14.1 g/dL (13.0-16.5); Immature Granulocytes Count 0.020 X10^3/uL (0.0-0.0); Mean Corp Hgb Conc 33.7 g/dL (32-36); Mean Corpuscular Volume 85.2 fL (80-94); Mean Platelet Vol. 9.9 fl (6.2-12.0); NRBC Flagged by Analyzer 0 % (0-5); Platelet Count 216 K/mm3 (150-450); RBC Distribution Width CV 13.2 % (11.6-14.6); RBC Distribution Width SD 41.0 fl (35.1-43.9); Red Blood Count 4.92 M/mm3 (4.6-6.2); White Blood Count 6.6 K/mm3 (4.4-11.0)
[2025-02-02 09:33] LABS: Anion Gap 9 (5-15); BUN 17 mg/dL (4-19); BUN/Creat Ratio 16.0 RATIO (10-20); Calcium,Total 8.5 mg/dL (7.6-11.0); Carbon Dioxide 25.7 mmol/L (21.0-32.0); Chloride 104 mmol/L (98-108); Glucose 133 mg/dL (70-99); Potassium 4.3 mmol/L (3.3-5.1)
== END ==
LOC: OLS.WHLTSB 05:00
PROVIDERS: PCP Family Medicine; Visit Provider Internal Medicine
DX: E11.9 Type 2 diabetes mellitus without complications (principal)
CPT/HCPCS: 36415; 80048; 85025